=== PATIENT | female | born 1965 | race Caucasian/White ===

== ENCOUNTER 2024-03-24 09:49 | Outpatient (AMB) | payer OTHER, SELFPAY ==
--- NOTE | 2024-03-24 09:54 | MHC.PC.OV ---
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 Allergies No Known Allergies Allergy (Verified 03/24/24 09:54) Medication List - Last Reconciled 03/24/24 by Jacqueline Pereira MD anastrozole 1 mg PO DAILY cetirizine (Zyrtec) 10 mg PO DAILY PRN dextroamphetamine-amphetamine 10 mg 1 tab PO BID omeprazole 10 mg PO DAILY Tobacco use date assessed: 03/24/24 Dental Screening Dental Screen Date: 03/24/24 Did you have a dental visit in the last 12 months?: Yes Did you have a dental problem in the last 6 months where you did not have access to dental care?: No Was dental information given to patient?: Patient has dentist HPI HPI Comments History of Present Illness Details 58 year old female with a past medical history of breast cancer, osteopenia, allergies, GERD, anxiety/depression, adrenal mass presenting for follow up She has had an incredible amount of stress, anxiety recently. Her adult daughter has been having trouble with an on and off toxic relationship and with drug use. Her finances are strained by helping her out. Heme/Onc: History of breast cancer. Sees heme/onc, Dr Wyatt. Sees surgery Dr Huggins. Mammo UTD 07/2023. GI: On omeprazole 10mg daily. Needs to take daily Endocrine: Adrenal mass was being monitored Colonoscopy & EGD 2022 [facility] Surgical History (Updated 03/30/24 @ 08:54 by Jacqueline Pereira MD) History of ear surgery Hx of umbilical hernia repair History of lumpectomy of right breast Hx of appendectomy Family History (Updated 03/24/24 @ 10:01 by Naresh Beckett CMA) Mother Hypothyroid Father Dementia High blood pressure Social History (Updated 03/24/24 @ 10:02 by Naresh Beckett CMA) Housing: House Alcohol intake: current Alcohol intake frequency: a few times a week Alcohol type: beer, wine and hard liquor Patient Tobacco Use Status: Former Tobacco user Quit Date: 2019 service: No Current occupational status: employed 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 1. Little interest or pleasure in doing things: not at all 2. Feeling down, depressed, or hopeless: nearly every day 3. Trouble falling or staying asleep, or sleeping too much: nearly every day 4. Feeling tired or having little energy: more than half the days 5. Poor appetite or overeating: more than half the days 6. Feeling bad about yourself - or that you are a failure or have let yourself or your family down: nearly every day 7. Trouble concentrating on things, such as reading the newspaper or watching television: nearly every day 8. Moving or speaking so slowly that other people could have noticed. Or the opposite - being so fidgety or restless that you have been moving around a lot more than usual: several days 9. Thoughts that you would be better off or of hurting yourself in some way: several days Total score: 18 Depression Screening Interpretation: Positive Depression Screening Follow-up: New Medication prescribed and Community Mental Health Worker F/U Depression Screening Done: Yes 35069 - PHQ-9 Billing: Yes Source: Developed by Drs. Stiven Aquino, Reena Matthews, Virgil Melo and colleagues, with an educational dewayne from [employer]. Thrive Questionnaire Date Thrive assessed: 03/24/24 I am a: Patient What is your living situation today?: I have a steady place to live Within the past 12 months, did the food you bought not last and you didn't have the money to get more?: Never true Within the past 12 months, did you worry whether your food would run out before you got money to buy more?: Never true Do you have trouble paying for medicines?: No Do you have trouble getting transportation to medical appointments?: No Do you have trouble paying your heating and electricity bill?: No Do you have trouble taking care of your child, family member or friend?: Yes Do you have trouble with day-to-day activities such as bathing, preparing meals, shopping, managing finances, etc.?: No Are you interested in more education?: No Please select the resources that you would like help with: None Currently or been in a relationship where the following occur: no concerns reported THRIVE Score: 0 AUDIT C Alcohol Use Questionnaire (AUDIT-C) 1. How often do you have a drink containing alcohol?: 2-4 times a month 2. How many drinks containing alcohol do you have on a typical day when you are drinking?: 3 or 4 3. How often do you have six or more drinks on one occasion?: Never Total Score: 3 Score Reviewed/Action Taken: Yes KESHA-7 AMB Questionnaire KESHA-7 Date KESHA - 7 assessed: 03/24/24 Feeling nervous, anxious, or on edge: 3 = Nearly every day Not being able to stop or control worryin = Nearly every day Worrying too much about different things: 3 = Nearly every day Trouble relaxin = Nearly every day Being so restless that it is hard to sit still: 2 = More than half the days Becoming easily annoyed or irritable: 3 = Nearly every day Feeling afraid as if something awful might happen: 2 = More than half the days Total KESHA-7 score (0-4 normal; 5-9 mild; 10-14 moderate; 15-21 severe): 19 Source: Developed by Drs. Stiven Aquino, Reena Matthews, Virgil Melo and colleagues, with an educational dewayne from [employer]. KESHA-7 Assessment Billing KESHA-7 Assessment Tool: KESHA-7 Assessment 59512 Review of Systems Const Details: see HPI Physical exam (Primary Care) Vital Signs: Last Vital Signs Pulse 72 03/24/24 09:57 BP 128/80 03/24/24 09:57 Pulse Ox 100 03/24/24 09:57 Oxygen Delivery Method Room Air 03/24/24 09:57 PHYSICAL EXAM: GENERAL: Alert and oriented x 3. NAD EYES: EOMI. Anicteric. HENT: Moist mucous membranes. No scleral icterus. No cervical lymphadenopathy. LUNGS: Clear to auscultation bilaterally. CARDIOVASCULAR: Regular rate and rhythm. No murmur. No JVD. ABDOMEN: Soft, non-tender +bs EXTREMITIES: No edema. Non-tender. SKIN: No rashes or lesions. Warm. NEUROLOGIC: No focal neurological deficits. CN II-XII grossly intact PSYCHIATRIC: Crying at times BMI result Body Mass Index 27.8 Tobacco/Smoking Status: Tobacco use Status Tobacco use date assessed 03/24/24 03/24/24 09:55 Patient Tobacco Use Status Former Tobacco user 03/24/24 10:04 PHQ-9: PHQ-9 Score PHQ-9: Total score 18 03/27/24 16:10 Depression Screening Interpretation: Positive Depression Screening Follow-up: New Medication prescribed and Community Mental Health Worker F/U Thrive Assessment: Date of Thrive Assessment Date Thrive assessed 03/24/24 03/24/24 14:50 Currently or been in a relationship where the following occur: no concerns reported Assessment and Plan Assessment & Plan (1) Adrenal mass: Comment: continue follow up with endocrine Code(s): E27.8 - Other specified disorders of adrenal gland (2) History of lumpectomy of right breast: Comment: continue heme/onc follow up Code(s): Z98.890 - Other specified postprocedural states (3) Acute stress reaction: Comment: Start prozac. lorazepam sparing prn. referral . Code(s): F43.0 - Acute stress reaction Medications: New lorazepam 0.5 mg PO BID PRN 30 tabs 0RF anxiety 30 days fluoxetine Take 1/2 tab oral daily for 2 weeks then increase to 1 tab oral daily 20 mg PO DAILY 90 tabs 3RF 90 days betamethasone dipropionate 0.05% 1 appl topical BID PRN 45 grams 3RF skin irritation Coding Level of Care Code Tele Est Pt Level 5 (50730) Diagnoses Adrenal mass E27.8 History of lumpectomy of right breast Z98.890 Acute stress reaction F43.0 Additional Codes KESHA-7 Assessment Billing - KESHA-7 Assessment Tool: KESHA-7 Assessment 55433 ([id number]) Time Spent (min) 63
[2024-03-24 09:57] VITALS: BP 128/80; PULSE 72; O2SAT 100; BMI 27.8
== END 2024-03-24 11:03 | disposition home or self-care (01) ==
PROVIDERS: Visit Provider Internal Medicine
DX: E27.8 Other specified disorders of adrenal gland (principal); Z98.890 Other specified postprocedural states; F43.0 Acute stress reaction
CPT/HCPCS: 96127; 99215

== ENCOUNTER 2024-04-25 11:13 | Outpatient (AMB) | payer OTHER, SELFPAY ==
--- NOTE | 2024-04-25 11:21 | A.OFFPC_ITS ---
Vital Signs 04/25/24 11:32 Height 5 ft 6 in Weight 171 lb 6 oz BMI 27.7 BP 138/88 Blood Pressure Location Lt brachial Position Sitting Pulse 74 Pulse Source Pulse Oximeter Temp 98.4 F Temp Source Oral Pulse Oximetry (%) 99 Oxygen Delivery Method Room Air Intake Visit Reasons: est/ uti pain Intake Note: Lower abdominal pain, tender to touch. Pain while urinating a passing bowel. Went to [facility] in [place]. Was in severe pain, but it got better. Allergies No Known Allergies Allergy (Verified 04/25/24 11:32) Tobacco use date assessed: 03/24/24 Dental Screening Dental Screen Date: 03/24/24 HPI HPI Comments History of Present Illness Details 58 year old female with a past medical h istory of breast cancer, osteopenia, allergies, GERD, anxiety/depression, adrenal mass presenting for follow up At last visit She has had an incredible amount of stress, anxiety recently. Her adult daughter has been having trouble with an on and off toxic relationship and with drug use. Her finances are strained by helping her out . She was started on fluoxetine. This has helped her tremendously. Four days ago she developed abdominal cramping and discomfort across the lower abdomen. She was unsure if it was her bladder, but denies sundar dysuria. Denies fevers, diarrhea, blood in the stools. She was more constipated than usual She did take a laxative and have a large BM. Her symptoms are much improved but still not back to basline. She has a history of diverticulosis on colonoscopy Heme/Onc: History of breast cancer. Sees heme/onc, Dr Wyatt. Sees surgery Dr Huggins. Mammo UTD 07/2023. GI: On omeprazole 10mg daily. Needs to take daily Endocrine: Adrenal mass was being monitored Colonoscopy & EGD 2022 ROS see HPI PHYSICAL EXAM: GENERAL: Alert and oriented x 3. NAD EYES: EOMI. Anicteric. HENT: Moist mucous membranes. No scleral icterus. No cervical lymphadenopathy. LUNGS: Clear to auscultation bilaterally. CARDIOVASCULAR: Regular rate and rhythm. No murmur. No JVD. ABDOMEN: Soft, non-tender +bs EXTREMITIES: No edema. Non-tender. SKIN: No rashes or lesions. Warm. NEUROLOGIC: No focal neurological deficits. CN II-XII grossly intact PSYCHIATRIC: Cooperative. Appropriate mood and affect [facility] Surgical History (Updated 03/30/24 @ 08:54 by Jacqueline Pereira MD) History of ear surgery Hx of umbilical hernia repair History of lumpectomy of right breast Hx of appendectomy Family History (Updated 03/24/24 @ 10:01 by Naresh Beckett CMA) Mother Hypothyroid Father Dementia High blood pressure Social History (Updated 03/24/24 @ 10:02 by Naresh Beckett CMA) Housing: House Alcohol intake: current Alcohol intake frequency: a few times a week Alcohol type: beer, wine and hard liquor Patient Tobacco Use Status: Former Tobacco user service: No Current occupational status: employed 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 Stiven Aquino, Reena Matthews, Virgil Melo and colleagues, with an educational dewayne from [employer]. Physical exam (Primary Care) Vital Signs: Last Vital Signs Temp 98.4 F 04/25/24 11:32 Pulse 74 04/25/24 11:32 BP 138/88 04/25/24 11:32 Pulse Ox 99 04/25/24 11:32 Oxygen Delivery Method Room Air 04/25/24 11:32 BMI result Body Mass Index 27.7 Tobacco/Smoking Status: Tobacco use Status Tobacco use date assessed 03/24/24 04/25/24 11:22 Patient Tobacco Use Status Former Tobacco user 04/25/24 11:22 Thrive Assessment: Date of Thrive Assessment Date Thrive assessed 03/24/24 04/25/24 11:22 Assessment and Plan Assessment & Plan (1) Abdominal pain: Comment: urinalysis normal. sent for culture Upcoming vacation. Will empirically treat for diverticulitis. If symptoms persist or worsen she will return or seek medical care in [place] Code(s): R10.9 - Unspecified abdominal pain Qualifiers: Abdominal location: lower abdomen, unspecified Qualified Code(s): R10.30 - Lower abdominal pain, unspecified (2) Acute stress reaction: Comment: Doing well on fluoxetine. continue current dosing Code(s): F43.0 - Acute stress reaction Orders: Orders Urine Culture 04/25/24 R10.9 - Unspecified abdominal pain Medications: New amoxicillin-pot clavulanate 875-125 mg 1 tab PO BID 20 tabs 0RF 10 days fluconazole may repeat second dose 72 hrs after first dose if symptoms persist 150 mg PO Q3D 2 tabs 0RF 2 doses Coding Level of Care Code Est Pt Level 4 (29736) Complex EM visit Add On G2211 Diagnoses Lower abdominal pain R10.30 Abdominal location: lower abdomen, unspecified Acute stress reaction F43.0
[2024-04-25 11:32] VITALS: BP 138/88; PULSE 74; TEMP 36.9; O2SAT 99; BMI 27.7
== END 2024-04-25 15:12 | disposition home or self-care (01) ==
PROVIDERS: Visit Provider Internal Medicine
DX: R10.30 Lower abdominal pain, unspecified (principal); F43.0 Acute stress reaction
CPT/HCPCS: 99214; G2211

== ENCOUNTER 2024-09-30 14:47 | Outpatient (AMB) | payer OTHER, SELFPAY ==
--- NOTE | 2024-09-30 15:05 | A.OFFPC_ITS ---
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 She has had an incredible amount of stress, anxiety recently. Her adult daughter has been having trouble with an on and off toxic relationship and with drug use. Her finances are strained by hel ping her out . She has intermittent symptoms abdominal cramping and discomfort across the lower abdomen. Denies fevers, blood in the stools. She does have bouts of diarrhea. Often resolves symptoms. Increased with stress. She has a history of diverticulosis on colonoscopy Has been having persistent swelling pain and warmth of the distal right middle finger. She has an ortho appointment scheduled for Oct 14. Heme/Onc: History of breast cancer. Sees heme/onc, Dr Wyatt. Recently saw Dr Wyatt, sees Dr Huggins in October. GI: On omeprazole 10mg daily. Needs to take daily. Endocrine: Adrenal mass was being monitored Colonoscopy & EGD 2022 Breast cancer screening is UTD Got flu and COVID vaccine this fall at the pharmacy ROS see HPI PHYSICAL EXAM: GENERAL: Alert and oriented x 3. NAD EYES: EOMI. Anicteric. HENT: Moist mucous membranes. No scleral icterus. No cervical lymphadenopathy. LUNGS: Clear to auscultation bilaterally. CARDIOVASCULAR: Regular rate and rhythm. No murmur. No JVD. ABDOMEN: Soft, non-tender +bs EXTREMITIES: No edema. Non-tender. SKIN: No rashes or lesions. Warm. NEUROLOGIC: No focal neurological deficits. CN II-XII grossly intact PSYCHIATRIC: Cooperative. 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 1. Little interest or pleasure in doing things: more than half the days 2. Feeling down, depressed, or hopeless: nearly every day 3. Trouble falling or staying asleep, or sleeping too much: several days 4. Feeling tired or having little energy: nearly every day 5. Poor appetite or overeating: nearly every day 6. Feeling bad about yourself - or that you are a failure or have let yourself or your family down: several days 7. Trouble concentrating on things, such as reading the newspaper or watching television: nearly every day 8. Moving or speaking so slowly that other people could have noticed. Or the opposite - being so fidgety or restless that you have been moving around a lot more than usual: several days 9. Thoughts that you would be better off or of hurting yourself in some way: not at all Total score: 17 Depression Screening Interpretation: Positive Depression Screening Follow-up: Existing condition Depression Screening Done: Yes 63299 - PHQ-9 Billing: Yes Source: Developed by Drs. Stiven Aquino, Reena Matthews, Virgil Melo and colleagues, with an educational dewayne from [employer]. Thrive Questionnaire Date Thrive assessed: 09/07/24 I am a: Patient What is your living situation today?: I have a steady place to live Within the past 12 months, did the food you bought not last and you didn't have the money to get more?: Never true Within the past 12 months, did you worry whether your food would run out before you got money to buy more?: Never true Do you have trouble paying for medicines?: No Do you have trouble getting transportation to medical appointments?: No Do you have trouble paying your heating and electricity bill?: No Do you have trouble taking care of your child, family member or friend?: Yes Do you have trouble with day-to-day activities such as bathing, preparing meals, shopping, managing finances, etc.?: No Are you currently unemployed and looking for a job?: No Are you interested in more education?: No Please select the resources that you would like help with: Care for elder or disabled Currently or been in a relationship where the following occur: No concerns reported THRIVE Score: 0 KESHA-7 AMB Questionnaire KESHA-7 Date KESHA - 7 assessed: 03/24/24 Source: Developed by Drs. Stiven Aquino, Reena Matthews, Virgil Melo and colleagues, with an educational dewayne from [employer]. Physical exam (Primary Care) Vital Signs: Last Vital Signs Pulse 83 09/30/24 15:11 BP 134/88 09/30/24 15:11 Pulse Ox 98 09/30/24 15:11 Oxygen Delivery Method Room Air 09/30/24 15:11 BMI result Body Mass Index 29.4 Tobacco/Smoking Status: Tobacco use Status Tobacco use date assessed 03/24/24 09/30/24 15:05 Patient Tobacco Use Status Former Tobacco user 09/30/24 15:05 PHQ-9: PHQ-9 Score PHQ-9: Total score 17 10/01/24 08:37 Depression Screening Interpretation: Positive Depression Screening Follow-up: Existing condition Thrive Assessment: Date of Thrive Assessment Date Thrive assessed 09/07/24 09/30/24 15:05 Currently or been in a relationship where the following occur: No concerns rep orted Coding Level of Care Code Est Pt Prev Care 40-64y(16669) Diagnoses Physical exam Z00.00 Additional Codes PHQ-9 - 93492 - PHQ-9 Billing: Yes ([id number]) Assessment & Plan Assessment & Plan (1) Physical exam: Code(s): Z00.00 - Encounter for general adult medical examination without abnormal findings Category: Medical Plan: Preventive measures for age discussed. She is up to date She needs to schedule follow up for adrenal mass. Augmentin if finger or abdominal pain worsens. Trial levsin with increase in abdominal cramping Orders: Orders TSH reflex Free T4 09/30/24 E27.8 - Other specified disorders of adrenal gland, R10.30 - Lower abdominal pain, unspecified, Z00.00 - Encounter for general adult medical examination without abnormal findings, Z98.890 - Other specified postprocedural states Complete Blood Count Auto Diff 09/30/24 E27.8 - Other specified disorders of adrenal gland, R10.30 - Lower abdominal pain, unspecified, Z00.00 - Encounter for general adult medical examination without abnormal findings, Z98.890 - Other specified postprocedural states Lipid Panel 09/30/24 E27.8 - Other specified disorders of adrenal gland, R10.30 - Lower abdominal pain, unspecified, Z00.00 - Encounter for general adult medical examination without abnormal findings, Z98.890 - Other specified postprocedural states Comprehensive Met. Panel 09/30/24 E27.8 - Other specified disorders of adrenal gland, R10.30 - Lower abdominal pain, unspecified, Z00.00 - Encounter for general adult medical examination without abnormal findings, Z98.890 - Other specified postprocedural states Hemoglobin A1c 09/30/24 E27.8 - Other specified disorders of adrenal gland, R10.30 - Lower abdominal pain, unspecified, Z00.00 - Encounter for general adult medical examination without abnormal findings, Z98.890 - Other specified postprocedural states Medications: New amoxicillin-pot clavulanate 875-125 mg 1 tab PO BID 20 tabs 0RF hyoscyamine sulfate 0.125 mg PO BID-QID PRN 30 tabs 3RF dyspepsia Refilled lorazepam 0.5 mg PO BID PRN 30 tabs 0RF anxiety 30 days dextroamphetamine-amphetamine 10 mg 1 tab PO BID 60 tabs 0RF
[2024-09-30 15:11] VITALS: BP 134/88; PULSE 83; O2SAT 98; BMI 29.4
== END 2024-09-30 15:56 | disposition home or self-care (01) ==
PROVIDERS: Visit Provider Internal Medicine
DX: Z00.00 Encounter for general adult medical examination without abnormal findings (principal)

== ENCOUNTER → 2024-09-30 14:47 | Outpatient (BNVA) | payer OTHER, SELFPAY | PROVIDERS: Visit Provider Internal Medicine | DX: Z00.00 Encounter for general adult medical examination without abnormal findings (principal); F41.9 Anxiety disorder, unspecified; E27.8 Other specified disorders of adrenal gland; K21.9 Gastro-esophageal reflux disease without esophagitis; Z79.899 Other long term (current) drug therapy | CPT/HCPCS: 96127 ==

== ENCOUNTER 2024-10-13 15:31 | Outpatient (AMB) | payer OTHER, SELFPAY ==
--- NOTE | 2024-10-13 15:34 | MHC.OFFVIS ---
Vital Signs 10/13/24 15:37 Height 5 ft 6 in Weight 182 lb BMI 29.4 Handedness Right Intake Visit Reasons: [employer]-Cellulitis of right middle finger Intake Note: Hetal is a 59 year old right hand dominant female who presents today as new patient for her cellulitis of right middle finger. Patient reports she has pain in the right 3rd digit with palpitation or any pressure applies. Expresses even a bandage on the finger is painful. She states what she believes is tissue that grows out from the side and under the nail bed and then dries up and falls off. Her assumption is a hang nail. Her finger appears swollen at today's visit. She has randomly woken up at night from sharp in in the right middle finger. Denies recent injury. Allergies lidocaine Allergy (Intermediate, Verified 10/13/24 15:38) Itching HPI HPI [employer]-Cellulitis of right middle finger: Details: Patient is a 59-year-old female presents for evaluation of chronic cellulitis and edema of the right middle finger, ongoing for approximately 3 months. 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 The patient states that this condition is very painful, and even light touch to this area causes significant discomfort. The patient states that the edema and erythema of the area surrounding the nail of the right middle finger has gone down significantly over the last week or 2, but states that it does fluctuate. Patient denies ever having any drainage from this area, and despite warm water soaks. Patient also reports that it there has never been any area of purulence noted visually. Patient has been given antibiotics periodically for this, with minimal effect. Denies any numbness or tingling in the right hand. No other acute complaints or concerns at this time. 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 Neuro: Normal sensation of the tips of all digits of the right hand at this time Vascular: Cap refill brisk Pain: significant tenderness to palpation about the ulnar aspect of the dorsal distal phalanx of the right middle finger, just adjacent to the fingernail No tenderness to palpation of the volar aspect of the right middle finger No other tenderness to palpation noted ROM: Patient is able to make a closed fist and extend all digits of the right hand fully Skin: No lacerations or abrasions. There is noted to be mild edema and erythema about the fingernail of the right middle finger, with a small area of thickened skin noted under the fingernail No focal area of purulence noted No fluctuance noted Psych: Appears grossly normal Affect normal Attitude cooperative Assessment & Plan Assessment & Plan (1) Chronic paronychia of finger of right hand: Code(s): L03.011 - Cellulitis of right finger Category: Medical Plan 1. Chronic paronychia of right middle finger Ongoing for approximately 3 months Patient is educated about this condition Patient is educated about the typical recovery course At this time, patient was placed on a course of Augmentin, which she states she has not been given for this previously, to see if this helps to alleviate her symptoms At this time, patient is also referred to Dr. Guardado for assessment of chronic paronychia versus potential ingrown fingernail of right middle finger Patient was amenable to this plan Patient will follow-up in [address] Guardado for reassessment, sooner with any acute concerns Medications: New amoxicillin-pot clavulanate 875-125 mg 1 tab PO BID 20 tabs 0RF 10 days Coding Level of Care Code New Pt Level 3 (32469) Diagnoses Chronic paronychia of finger of right hand L03.011
[2024-10-13 15:37] VITALS: BMI 29.4
== END 2024-10-13 15:50 | disposition home or self-care (01) ==
LOC: HO.HOS 15:31
DX: L03.011 Cellulitis of right finger (principal)
CPT/HCPCS: 99203

== ENCOUNTER 2024-10-21 15:29 | Outpatient (REF) | payer OTHER, SELFPAY | END 2024-10-21 15:30 | disposition home or self-care (01) | LOC: HO.HOSX 15:29 | PROVIDERS: Visit Provider Orthopaedic Surgery | DX: M79.641 Pain in right hand (principal) | CPT/HCPCS: 73130 ==

== ENCOUNTER → 2024-10-21 15:29 | Outpatient (AMB) | payer OTHER, SELFPAY ==
--- NOTE | 2024-10-21 15:50 | MHC.OFFVIS ---
Vital Signs 10/21/24 16:15 Height 5 ft 6 in Weight 182 lb BMI 29.4 Intake Visit Reasons: Cellulitis of right middle finger-1 WK follow up Intake Note: Hetal 59 yr old right hand dominant female, presents today for a follow up visit for her right middle finger. Patient states she has been taking her antibiotics, second round, no visible discharge. Denies numbness or tingling. Last seen with Shy Emerson who advise for patient to be seen with Dr. Guardado for an assessment of chronic paronychia versus potential ingrown fingernail of right middle finger. Allergies lidocaine Allergy (Intermediate, Verified 10/21/24 15:56) Itching HPI HPI Cellulitis of right middle finger-1 WK follow up: Details: Hetal is a 59 year old right hand dominant woman who presents for a possible right middle finger infection. 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 She reports having pain & a possible infection vs an ingrown fingernail to her right middle finger for several months now, she is unsure of the exact time but suspects it was sometime in Spring this year. She complains of pain & hypersensitivity to the the middle finger, particularly the ulnar half. She says she is unable to wear bandages as she finds this too painful. She has found little to no relief from warm water soaks or previous Abx. She denies there ever being any drainage. 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 Cognitive needs: No Hearing needs: No Vision needs: Yes Review of Systems Const All systems reviewed & are unremarkable except as noted in HPI and below Physical Exam Const General: cooperative, healthy appearing and no acute distress Orientation/consciousness: patient oriented x3 HEENT Head: Yes normocephalic and Yes atraumatic Eyes EOM: EOMs intact bilaterally Resp Effort & Inspection: normal respiratory effort and able to speak in complete sentences Cardio Jugular venous distension: no JVD Skin General skin exam: turgor normal Rashes: no rashes Neuro General: patient oriented x3 Extrem Other: Evaluation of Right Upper Extremity: The patient is alert, oriented, and in no acute distress Neuro: Median, Ulnar, Radial nerves motor and sensory intact and sensation is normal to the tips of all digits Vascular: Cap refill brisk ROM: She can make a fist and extend all her digits Skin: No lacerations or abrasions. General: The distal end of the middle finger is enlarged compared to her left hand middle finger TTP about the radial aspect of the right middle finger, just adjacent to the fingernail. There are 2 small painful projections, much like a hang nail, or small remnant of a nail that is split off from the main aspect of the nail. This is her most painful area. She is also painful in an area about a cm diameter around the painful projection. No erythema or warmth. No drainage and no history of drainage No tenderness to palpation of the ulnar aspect of the right middle finger She can make a fist and extend all of her digits without difficulty. Of note she has a history of a trigger release at some point. In this digit with no history of complications. Radiographs: 3 views of the right hand, with attention to the middle finger, were taken and viewed by me today in clinic. On the radial aspect of the distal phalanx there does appear to be soft tissue involvement appearing to push into the bone both radially and volarly with bony edges both proximal and distal to the area. It is unclear whether this could be due to a soft tissue mass, or perhaps a chronic slow growing osteomyelitis. Psych Appearance: grossly normal Affect: normal affect Attitude: cooperative Assessment & Plan Assessment & Plan (1) Chronic paronychia of finger of right hand: Comment: Jeff Code(s): L03.011 - Cellulitis of right finger Category: Medical Plan Assessment & Plan: 1. Right middle finger distal phalanx possible chronic paronychia involving bone, versus soft tissue mass. Radial side 2. Radial finger nail involvement, again possible chronic paronychia I educated her about this condition I discussed operative and non-operative treatment options I believe operative treatment would be best, and the patient would like to proceed with surgery The risks and benefits of operative treatment were discussed with the patient and the patient wishes to proceed with surgery. These risks include, but are not limited to risk of damage to blood vessels, nerves, tendons, infection, recurrence, incomplete relief of preoperative symptoms, persistent pain, possible need for further surgery and the risks associated with regional blocks and anesthesia. The plan is to take the patient to the operating room sometime in the next few weeks for the following procedures: 1. Right middle finger partial excision of nailplate, nailbed, and germinal nail matrix, under local (patient requested) 2. Right middle finger biopsy & I&D of bone & chronic paronychia, under local (patient requested) All of the preoperative paperwork including the consent was reviewed today. All the patient's questions were answered. The patient understands that they will be contacted by our inspector subassembly soon to schedule this procedure She denies Diabetes, blood thinners, asthma, heart, lung, kidney issues Her primary care provider ordered a hemoglobin A1c. We will check this prior to surgery. Please note that greater than 50 minutes was spent with this patient going over the history, evaluating the patient and radiographs, formulating possible treatment options, discussing them with the patient, and documenting the visit. Scribed for Cris Guardado MD by Gomez Smith, emergency medical dispatcher, on 10/21/24 at 4:10 PM, EST. 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
[2024-10-21 16:15] VITALS: BMI 29.4
== END ==
PROVIDERS: Visit Provider Orthopaedic Surgery
DX: L03.011 Cellulitis of right finger (principal)
CPT/HCPCS: 99204

== ENCOUNTER 2024-11-03 11:00 | Outpatient (REF) | payer OTHER, SELFPAY ==
--- OUTSIDE RECORDS SUMMARY | 2024-11-03 11:06 | XMS_ITS | Data Portability ---
Author Organization [place] - [facility], [facility] Address [id number] [place] [address] Care Team Providers Care Pian[employer] Salesperson Name Role Phone SIRIA CHINO Primary Care Provider [phone] SIRIA CHINO Referring Provider [phone] NIRMAL CARLSON Machine Sign Writer Unavailable SIRIA CHINO Primary Care Provider Assessment No assessment recorded. Plan of Treatment Reminders Order Date Submit Date Provider Last Modified By Organization Details Last Modified Time Details Appointments None recorded. Lab urinalysis , dipstick 2015 016 In-Office Order, Internal Use Only DO Not Attach Compendium DO Not Attach Compendium, Do Not Delete/merge, [id number] 6 21:28:21 fecal occult blood, stool 2015 016 In-Office Order, Internal Use Only DO Not Attach Compendium DO Not Attach Compendium, Do Not Delete/merge, [id number] 6 21:28:22 pap, IG + CT/NG + HR HPV + reflex HPV (16+18) 2016 017 Formerly [facility], [address], [place], [address] 7 08:35:34 urinalysis , dipstick 2016 017 In-Office Order, Internal Use Only DO Not Attach Compendium DO Not Attach Compendium, Do Not Delete/merge, [id number] 7 17:01:45 fecal occult blood, stool 2016 017 In-Office Order, Internal Use Only DO Not Attach Compendium DO Not Attach Compendium, Do Not Delete/merge, [id number] 7 17:01:45 test, urine 2016 017 In-Office Order, Internal Use Only DO Not Attach Compendium DO Not Attach Compendium, Do Not Delete/merge, [id number] 7 14:21:03 surgical pathology study - ascus, HPV+. ECC done 2016 017 Formerly [facility], [address] [place] [address], [id number] 7 15:35:52 surgical pathology study 2016 017 [email or web address] [facility], [address] [place] [address], [id number] 7 10:49:00 surgical pathology study - ascus, HPV+ pap. [address] [facility], [address] [place] [address], [id number] 7 10:49:00 Referral None recorded. Procedures None recorded. Surgeries None recorded. Imaging MAMMO, screening, digital, bilateral - Please Reflex to breast ultrasound if mammogram shows dense breasts [address] [facility], [address] [place], [address], 6 11:35:16 ultrasound , breast - left diagnostic u/s follow up. 2015 016 [email or web address] [facility], [address] [place], [address], 6 08:04:45 MAMMO, screening, digital, bilateral, w/ CAD 2016 017 [facility] [place], [address], [address], [place], [address], 7 08:35:54 US, breast, bilateral 2016 017 IRINA [facility] [place], [address], [address], [place], [address], 7 09:04:09 Medication Orders Minastrin 24 Fe 1 mg-20 mcg (24)/75 mg (4) chewable tablet 2015 016 Not available 7 13:39:13 Minastrin 24 Fe 1 mg-20 mcg (24)/75 mg (4) chewable tablet 2015 016 Not available 13:39:13 Patient TargetsNo targets recorded. Patient Instructions Encounter Date Encounter Id Patient Instructions Last Modified By Organization Details Last Modified Time 12/21/2015 [id number] Patient presents for a well woman exam. Her history is unremarkable and her exam is normal. She has been counseled regarding Pap smear screening as per guidelines of every three years for cytology review with high risk HPV testing. I have recommended an annual Digital Bilateral Mammogram and an order sheet has been given to her.. I have counseled her about the benefit of performing monthly self-breast exams. We spoke about the recommendation of ??daily dietary ??Calcium supplementation and 2000iu of Vitamin D daily. She has been told to schedule a well woman [employer] exam in one year and to call us with any question or concerns regarding her health and welfare. Heme + stool. recommend colonoscopy. ??A heart healthy diet and exercise were recommended.?? Not available 12/22/2015 21:28:22 01/04/2017 [id number] Patient presents for a well woman exam. Her history is unremarkable and her exam is normal. She has been counseled regarding Pap smear screening as per guidelines of every three years for cytology review with high risk HPV testing. She had a h.o abnl pap in 2009, repeat pap and HPV and cultures done. safe sex recommended. I have recommended an annual Digital Bilateral Mammogram and an order sheet has been given to her. She has been counseled regarding menopausal symptoms including hot flushes, vaginal dryness, mood changes, and difficulty sleeping. She has been offered an appointment to speak to me specifically about these symptoms and some strategies to ease them if and when they occur. She will continue ocp x 1 more year and then come off. risk of VTE reviewed. consent obtained. I have counseled her about the benefit of performing monthly self-breast exams. We spoke about the recommendation of dietary calcium and Vit D3, 2000IU daily. . She has been told to schedule a well woman [employer] exam in one year and to call us with any question or concerns regarding her health and welfare. Not available 01/05/2017 09:52:38 01/24/2017 [id number] abnormal Pap saeed t: care instructions [email or web address] Not available 01/24/2017 14:27:55 ASCUS, HPV+ for annual pap. h/o dysplasia years ago and had cryo. New partner since divorce. colpo done today. suspect inflammation vs. HPV ? CIN1 on biopsy. cervical polyp removed at the same time as colpo. pt tolerated procedure well. f/u with results. Discussed possible outcome and follow up . Not available 01/24/2017 21:41:10 Reason for Referral None Reported. Results Created Date Observation Date Name Description Value Unit Range Abnormal Flag Note LastModifiedBy Organization Detail LastModifiedTime 01/24/2017 pregn magdalene test, urine Result negati ve Not Available In-Office Order Internal Use Only DO Not Attach Compendium DO Not Attach Compendium, Do Not Delete/merge, [id number] 01/24/2017 13:31:37 01/04/2017 fecal occul t blood , stool Occult Blood negati ve Not Available In-Office Order Internal Use Only DO Not Attach Compendium DO Not Attach Compendium, Do Not Delete/merge, [id number] 01/04/2017 17:01:21 01/04/2017 urina lysis , dipst ick Interpretati on negati ve Not Available In-Office Order Internal Use Only DO Not Attach Compendium DO Not Attach Compendium, Do Not Delete/merge, [id number] 01/04/2017 16:18:34 01/04/2017 urina lysis , dipst ick Leukocytes Negati ve Not Available In-Office Order Internal Use Only DO Not Attach Compendium DO Not Attach Compendium, Do Not Delete/merge, [id number] 01/04/2017 16:18:34 01/04/2017 urina lysis , dipst ick Nitrite negati ve Not Available In-Office Order Internal Use Only DO Not Attach Compendium DO Not Attach Compendium, Do Not Delete/merge, 01/04/2017 16:18:34 01/04/2017 urina lysis , dipst ick Urobilinogen Normal : 0.2 mg/dl Not Available In-Office Order Internal Use Only DO Not Attach Compendium DO Not Attach Compendium, Do Not Delete/merge, 01/04/2017 16:18:34 01/04/2017 urina lysis , dipst ick Protein Negati ve Not Available In-Office Order Internal Use Only DO Not Attach Compendium DO Not Attach Compendium, Do Not Delete/merge, 01/04/2017 16:18:34 01/04/2017 urina lysis , dipst ick pH 6.0 Not Available In-Office Order Internal Use Only DO Not Attach Compendium DO Not Attach Compendium, Do Not Delete/merge, 01/04/2017 16:18:34 01/04/2017 urina lysis , dipst ick Blood Negati ve Not Available In-Office Order Internal Use Only DO Not Attach Compendium DO Not Attach Compendium, Do Not Delete/merge, 01/04/2017 16:18:34 01/04/2017 urina lysis , dipst ick Specific [place] 1.010 Not Available In-Off ice Order Internal Use Only DO Not Attach Compendium DO Not Attach Compendium, Do Not Delete/merge, 01/04/2017 16:18:34 01/04/2017 urina lysis , dipst ick Ketone Negati ve Not Available In-Office Order Internal Use Only DO Not Attach Compendium DO Not Attach Compendium, Do Not Delete/merge, 01/04/2017 16:18:34 01/04/2017 urina lysis , dipst ick Bilirubin Negati ve Not Available In-Office Order Internal Use Only DO Not Attach Compendium DO Not Attach Compendium, Do Not Delete/merge, 01/04/2017 16:18:34 01/04/2017 urina lysis , dipst ick Glucose Negati ve Not Available In-Office Order Internal Use Only DO Not Attach Compendium DO Not Attach Compendium, Do Not Delete/merge, 01/04/2017 16:18:34 01/04/2017 urina lysis , dipst ick Appearance Clear Not Available In-Offi ce Order Internal Use Only DO Not Attach Compendium DO Not Attach Compendium, Do Not Delete/merge, 01/04/2017 16:18:34 01/04/2017 urina lysis , dipst ick Color Yellow Not Available In-Office Order Internal Use Only DO Not Attach Compendium DO Not Attach Compendium, Do Not Delete/merge, 01/04/2017 16:18:34 12/21/2015 fecal occul t blood , stool Occult Blood positi ve Not Available In-Office Order Internal Use Only DO Not Attach Compendium DO Not Attach Compendium, Do Not Delete/merge, 12/21/2015 17:13:56 12/21/2015 urina lysis , dipst ick Leukocytes Negati ve Not Available In-Office Order Internal Use Only DO Not Attach Compendium DO Not Attach Compendium, Do Not Delete/merge, 12/21/2015 10:52:46 12/21/2015 urina lysis , dipst ick Nitrite negati ve Not Available In-Office Order Internal Use Only DO Not Attach Compendium DO Not Attach Compendium, Do Not Delete/merge, 12/21/2015 10:52:46 12/21/2015 urina lysis , dipst ick Protein Negati ve Not Available In-Office Order Internal Use Only DO Not Attach Compendium DO Not Attach Compendium, Do Not Delete/merge, 12/21/2015 10:52:46 12/21/2015 urina lysis , dipst ick Blood Negati ve Not Available In-Office Order Internal Use Only DO Not Attach Compendium DO Not Attach Compendium, Do Not Delete/merge, 12/21/2015 10:52:46 12/21/2015 urina lysis , dipst ick Glucose Negati ve Not Available In-Office Order Internal Use Only DO Not Attach Compendium DO Not Attach Compendium, Do Not Delete/merge, 12/21/2015 10:52:46 12/21/2015 urina lysis , dipst ick Appearance Clear Not Available In-Offi ce Order Internal Use Only DO Not Attach Compendium DO Not Attach Compendium, Do Not Delete/merge, [id number] 12/21/2015 10:52:46 12/21/2015 urina lysis , dipst ick Color Yellow Not Available In-Office Order Internal Use Only DO Not Attach Compendium DO Not Attach Compendium, Do Not Delete/merge, [id number] 12/21/2015 10:52:46 01/05/20 17 01/11/2017 pap, IG + CT/NG + HR HPV + refle x HPV (16+1 8) report abnormal THINP REP TIS PAP, HPV mRNA E6/E7 RFX HPV 16,18 /45, CHLAM YDIA/ N.SIS ORRHO EAE Lab: TY3 CLINI FELIBERTO INFOR MATIO N: None given LMP: NI prev. Pap: NONE GIVEN prev. Bx: NI SOURC E: Cervi x, Endoc ervix STATE MENT OF ADEQU ACY: Satis facto ry for evalu ation . Endoc ervic al/tr ansfo rmati on zone compo nent prese nt. Age and/o r menst rual statu s not provi ded GENER AL CATEG ORIZA TION: EPITH ELIAL CELL ABNOR MALIT Y INTER PRETA TION/ RESUL T: Atypi feliberto Squam ous Cells of Undet ermin ed Signi fican ce (ASC- US) COMME NT: This Pap test has been evalu ated with compu ter ammy aldo techn ology . CYTOT ECHNO LOGIS T: KF, CT( CP) CT scree jessi locat ion: [facility] [address] [facility], [place] [id number] PATHO LOGIS T: Seymour ruiz M.D., (elec troni c signa ture) [facility] For quest ions conta ct [facility] t Servi rody at [phone] Lab: NL1 HPV mRNA E6/E7 REFLE X HPV 16, 18/45 HPV mRNA E6/E7 Detec aldo Refer ence Range : Not Detec aldo This test was perfo rmed using the APTIM A HPV Assay ([employer] . This assay detec ts E6/E7 viral messe nger RNA (mRNA ) from 14 high- risk HPV types (16,1 8,31, 33,35 ,39,4 5,51, 52,56 ,58,5 9,66, 68). THINP REP TIS PAP, HPV mRNA E6/E7 RFX HPV 16,18 /45, CHLAM YDIA/ N.SIS ORRHO EAE PERFO RMING SITE: NL1 [facility] [address] ,[place] [address] Labor atory Direc tor: RAAD BOB MD , CLIA: [id number] TY3 [facility] [address] [facility] [place] [address] Labor atory Direc tor: CIPRIANO DIAZ MD, CLIA: [id number] Not Available [facility] [address] [place], [address] 01/11/2017 08:35:34 01/05/20 17 01/11/2017 pap, IG + CT/NG + HR HPV + refle x HPV (16+1 8) neisseria gonorrhoeae RNA,tma NOT DETECT ED not detect ed Not Available [facility] [address] [place], [address] 01/11/2017 08:35:34 01/05/20 17 01/11/2017 pap, IG + CT/NG + HR HPV + refle x HPV (16+1 8) chlamydia trachomatis RNA, tma NOT DETECT ED not detect ed Not Available [facility] [address] [place], [address] 01/11/2017 08:35:34 01/05/20 17 01/11/2017 pap, IG + CT/NG + HR HPV + refle x HPV (16+1 8) message This test was perfo rmed using the APTIM A COMBO 2 Assay ([employer] . The faviola tical perfo rmanc e jeanette cteri stics of this assay , when used to test SureP ath speci mens have been deter mined by [facility] keesha ramirez Not Available [facility] [address], [place], [address] 01/11/2017 08:35:34 01/25/20 17 01/25/2017 surgi feliberto patho logy study report Surgi feliberto Patho logy Repor t DIAGN OSIS #1 - ENDOC ERVIC AL CURET TINGS : BENIG N ENDOC ERVIC AL GLAND S; NO DYSPL KARTHIK PRESE NT. #2 - UTERI NE CERVI X, POLYP ECTOM Y: BENIG N ENDOC ERVIC AL POLYP . #3 - UTERI NE CERVI X, BIOPS Y: BENIG N ENDOC ERVIC AL GLAND ULAR AND SQUAM OUS METAP LASTI C MUCOS A, NEGAT WESLEY FOR DYSPL KARTHIK. SEE COMME NT. El ectro nical ly Dalila d Out * MICHA SANTANA MD Comme nt Note is made of the histo ry of high risk HPV DNA which warra nts [place] nued [place]. [id number] x 3 Clini feliberto Diagn osis and Histo ry ASCUS , HPV+ pap ICD Code( s) R87.6 10 Atyp squam cell of undet signf c cyto smr crvx (ASC- US) Tissu e(s) Submi tted A: Endoc ervix , curet tage- jar label ed #1 B: Cervi x, polyp ectom y-jar label ed #2 polpy C: Cervi x, biops y-jar label ed #3 bx Gross Descr iptio n #1 - The conta iner is label ed with the patie nt's name, Hetal Mora . Speci men type indic ated on requi sitio n as ECC. The speci men is recei jayla in forma alessia and consi sts of irreg ular tissu e fragm ents admix ed with mucus and blood measu ring less than .1 cc, which are then filte red and submi tted in toto in oneca ssett e label ed 1A. The speci men may not survi ve proce ssing . #2 - The conta iner is label ed with the patie nt's name, Hetal Mora . Speci men type indic ated on conta iner as polyp . The speci men is recei jayla in forma alessia and consi sts of one piece of a soft, nuñez tissu e measu ring 0.7 x 0.6 x0.2 cm, which is then submi tted in toto in one casse tte label ed 2A. Also noted in conta iner were irreg ular tissu e fragm ents admix ed with mucus and blood measu ring , hemor rhagi c mucos al tissu e fragm ents measu ring about .2 cc inagg regat e, which is then submi tted in toto in one casse tte label ed 2A. #3 - The conta iner is label ed with the patie nt's name, Hetal Mora . Speci men type indic ated on conta iner as BX. The speci men is recei jayla in forma alessia and consi sts of two piece s of soft, nuñez tissu e measu ring from small est,0 .2 x 0.2 x 0.[address], 0.4 x 0.2 x .05 cm, which is then submi tted intot o in one casse tte label ed 3A. DC Testi ng perfo rmed at [facility] , [address] [place] [address] CLIA [id number] CL-PO [id number]. Not Available [facility] [address] [place], [address] 01/25/2017 15:35:52 06/13/20 16 06/13/2016 MAMMO , lakshmi bowen, digit al, bilat eral HISTOR Y: Vega fine is 50 years old and is seen for screen ing. The vega fine has a histor y of left stereo tactic core biopsy in 2007. The vega fine has no person al histor y of breast or ovaria n cancer . The vega fine has no family histor y of breast cancer . FILMS COMPAR ED: The presen t examin ation has been compar ed to prior imagin g studie s perfor med at [facility] on 2010, 2012 and 2014. MAMMOG KENNY FINDIN GS: The follow ing digita l mammog raphic views were obtain ed: bilate ral cranio caudal , bilate ral mediol ateral obliqu e. The breast s are hetero geneou sly dense, which may obscur e small masses . (ACR BIRADS densit y Catego ry c) * There is a stable focal asymme try with associ ated biopsy clip seen in the left breast at 9 oclock . No suspic ious masses , calcif icatio ns or other abnorm alitie s are seen in either breast . Comput er-aid ed detect ion was utiliz ed by the radiol ogist in the interp retati on of this examin ation. IMPRES MARK: Stable focal asymme try in the left breast is benign . Routin e follow -up mammog kenny in 1 year is recomm ended. The patien t will receiv e a lay summar y of the result s of this breast imagin g exam. Lay summar ies for mammog stephanie examin ations will also identi fy the patien ts person al breast tissue compos ition as requir ed by state law. BIRADS Catego ry 2: Benign *BREAS T COMPOS ITION Breast compos ition descri ptions are based on the standa rd practi ce guidel jaye of the ACR BI-RAD S [place]. A refere nce guide is provid ed below. BREAST COMPOS ITION CATEGO LIO - BIRADS VERSIO N V a. The breast s are almost entire ly fatty. b. There are scatte red areas of fibrog landul ar densit y. c. The breast s are hetero geneou sly dense, which may obscur e small masses . d. The breast s are extrem jim dense, which lowers the sensit ivity of mammog stephanie. Patien ts in catego lio c. and d. may qualif y for supple mental screen ing exams. Thank you for referr ing your patien t to us, uJstin MD (Elect jaya elajessica Signed - 2015 11:33) Copy: ISAIAS Sanders MD [facility] [address] [place] [address] [phone] [facility] [place] [address], [place], [address], 06/18/2016 09:47:55 08/08/20 16 06/13/2016 ultra sound , therese fine No observ ation record ed. [facility] [address], [place], [address], 08/08/2016 17:48:50 01/10/20 17 01/08/2017 US, therese fine, francia erakarmen HISTOR Y: Vega fine is 51 years old and is seen for screen ing. The evga fine has a histor y of left stereo tactic core biopsy in 2007. The vega fine has no person al histor y of breast or ovaria n cancer . The vega fine has no family histor y of breast cancer . LAST TISSUE DENSIT Y The breast is hetero geneou sly dense, which may obscur e small masses . (ACR BIRADS densit y Catego ry c) * FILMS COMPAR ED: The presen t examin ation has been compar ed to prior imagin g studie s dated 2015, 2014, 2012 and 2009. ULTRAS OUND FINDIN GS: High-r es graysc riddhi sonogr aphy was perfor med with a high freque ncy linear transd ucer using standa rd protoc ol. All four quadra nts of the breast (s) includ ing areola and axilla ry areas were imaged . Findin g 1: Follow -up examin ation was perfor med for the cluste r of cysts in the left breast , 2 oclock seen on 2014. On the presen t examin ation, there is a stable cluste r of cysts measur ing 12 millim eters in the left breast upper outer quadra nt at 2 oclock locate d 4 centim eters from the nipple . Findin g remain s unchan ged from the prior study. Findin g 2: There is an avascu lar compli cated cyst measur ing 6 x 5 x 5 mm seen in the left breast at 3 oclock locate d 5 centim eters from the nipple . Findin g 3: Follow -up examin ation was perfor med for the cluste r of cysts in the left breast , 8 oclock seen on 2015. On the presen t examin ation, there is a stable avascu lar cluste r of cysts measur ing 7 x 4 x 5 mm in the left breast lower inner quadra nt at 8 oclock locate d 4 centim eters from the nipple . Findin g 4: Follow -up examin ation was perfor med for the cluste r of cysts in the left breast , 9 oclock seen on 2014. On the presen t examin ation, there is a cluste r of cysts measur ing 15 millim eters in the left breast at 9 oclock locate d 4 centim eters from the nipple . Findin g has decrea sed in size. Findin g 5: There is an oval avascu lar compli cated cyst with circum scribe d margin s measur ing 5 millim eters seen in the right breast lower outer quadra nt at 8 oclock locate d 4 centim eters from the nipple , with long axis parall el to the chest wall. Findin g 6: There is a stable avascu lar cluste r of cysts measur ing 9 millim eters seen in the right breast upper outer quadra nt at 10 oclock locate d 4 centim eters from the nipple . IMPRES MARK: Findin g 1: Stable cluste r of cysts in the left breast upper outer quadra nt at 2 oclock locate d 4 centim eters from the nipple is probab ly benign . Short interv al follow up ultras ound of the left breast in 6 months is recomm ended. Findin g 2: Compli cated cyst in the left breast at 3 oclock locate d 5 centim eters from the nipple is probab ly benign . Short interv al follow up ultras ound of the left breast in 6 months is recomm ended. Findin g 3: Stable cluste r of cysts in the left breast lower inner quadra nt at 8 oclock locate d 4 centim eters from the nipple is probab ly benign . Short interv al follow up ultras ound of the left breast in 6 months is recomm ended. Findin g 4: Cluste r of cysts in the left breast at 9 oclock locate d 4 centim eters from the nipple is benign . Patien t should return for mammog raphic follow up as recomm ended on the most recent mammog stephanie report . Findin g 5: Compli cated cyst in the right breast lower outer quadra nt at 8 oclock locate d 4 centim eters from the nipple is benign . Patien t should return for mammog raphic follow up as recomm ended on the most recent mammog stephanie report . Findin g 6: Stable cluste r of cysts in the right breast upper outer quadra nt at 10 oclock locate d 4 centim eters from the nipple is benign . Patien t should return for mammog raphic follow up as recomm ended on the most recent mammog stephanie report . The patien t will receiv e a lay summar y of the result s of this breast imagin g exam. Lay summar ies for mammog stephanie examin ations will also identi fy the patien ts person al breast tissue compos ition as requir ed by state law. BIRADS Catego ry 3: Probab ly Benign *BREAS T COMPOS ITION Breast compos ition descri ptions are based on the standa rd practi ce guidel jaye of the ACR BI-RAD S [place]. A refere nce guide is provid ed below. BREAST COMPOS ITION CATEGO LIO - BIRADS VERSIO N V a. The breast s are almost entire ly fatty. b. There are scatte red areas of fibrog landul ar densit y. c. The breast s are hetero geneou sly dense, which may obscur e small masses . d. The breast s are extrem jim dense, which lowers the sensit ivity of mammog stephanie. Patien ts in catego lio c. and d. may qualif y for supple mental screen ing exams. Thank you for referr ing your patien t to us, Katherine kaur D.O. (Elect jaya bagley Signed - 2016 09:01) [facility] [place] [address], [place], [address], 01/10/2017 12:22:38 Result Notes None recorded. Problems Name Problem SNOMED Code Status Onset Date Resolution Date Notes Provider Name and Address Organization Details Recorded Time Mammography finding 792968090 Active Rosa domingo, [facility] 6 10:52:46 Hearing loss 08719421 Active 2011 Rosa Francois null, [facility] 6 10:52:46 Migraine 59280232 Active 2014 Rosa Francois null, [facility] 6 10:52:46 Seasonal allergic rhinitis 172400832 Active 2014 Rosa domingo, [facility] 6 10:52:46 Sleep apnea 17898395 Active 2014 Rosa domingo, [facility] 6 10:52:46 Anxiety state 982298024 Active 2011 Rosa domingo, [facility] 6 10:52:46 Depressive disorder 29637300 Active 2011 Rosa domingo, [facility] 6 10:52:46 Problem Notes None recorded. Procedures Surgical History Date Name Laterality Status Provider Name and Address Organization Details Recorded Time 7 Colposcopy Procedure Note completed NIRMAL CARLSON MD [address], [address], [facility] 01/24/2017 21:39:31 7 Colposcopy completed Rosajennifer Francois [facility] 01/24/2017 13:30:49 7 [id number] completed NIRMAL CARLSON MD [address], [address], [facility] 01/05/2017 09:51:07 7 [id number] completed NIRMAL CARLSON MD [address], [phone], [facility] 01/05/2017 09:51:19 7 [id number] completed NIRMAL CARLSON MD [address] [facility], [place], [address], [facility] 01/05/2017 09:50:59 7 [id number] completed NIRMAL CARLSON MD [address], [address] [place] [address], [place], [phone], [facility] 01/05/2017 09:51:13 7 [id number] completed NIRMAL CARLSON MD 175 [facility], [address] [place] [address], [place], [address], [facility] 01/05/2017 09:50:56 7 [id number] completed NIRMAL CARLSON MD 175 [facility], [address] [place] [address], [phone], [facility] 01/05/2017 09:51:02 7 Date of Last Pap Smear completed Rosa Francois [facility] 01/23/2017 11:04:27 6 Date of Last Mammogram completed Chichi Bai [facility] 06/13/2016 12:15:10 6 [id number] completed NIRMAL CARLSON MD 175 [facility], [address] [place] [address], [phone], [facility] 12/21/2015 11:33:41 6 [id number] completed NIRMAL CARLSON MD 175 [facility], [address] [place] [address], [phone], [facility] 12/21/2015 11:33:41 6 [id number] completed NIRMAL CARLSON MD 175 [facility], [address] [place] [address], [phone], [facility] 12/21/2015 11:33:41 6 [id number] completed NIRMAL CARLSON MD 175 [facility], 3rd Floor, [place], [address], [place] - [facility] 12/21/2015 11:33:41 6 [id number] completed NIRMAL CARLSON MD 175 [facility], [address], [place], [address], [place] - [facility] 12/21/2015 11:33:41 6 [id number] completed NIRMAL CARLSON MD 175 [facility] [address], [place], [address], [place] - [facility] 12/21/2015 11:34:48 1 Cryotherapy of the cervix completed Rosa Francois [place] - [facility] 12/21/2015 11:07:24 Imaging Results Imaging Date Name Status LastModified by [facility] Details LastModified Time 06/13/2016 MAMMO, screening, digital, bilateral completed [id number] [facility] [place] [address], [place], [address], 06/18/2016 09:47:55 06/13/2016 ultrasound, breast completed [address] [facility] [address], [place], [address], 08/08/2016 17:48:50 01/08/2017 US, breast, bilateral completed [facility] [place] [address], [place], [address], 01/10/2017 12:22:38 Procedure Notes None recorded. Medical Equipment None Reported. Allergies Allergen ID Allergen Name Allergen Category Reaction Reaction Severity Criticality Documentation Date Start Date Code Code System Note Provider Name and Address Organization Details Recorded Time 866781 No known allergy (situatio n) Not available Not available Not available Not available 02/27/20152012 19386 6003 SNOMED Rosa Francois null, [place] - [facility] 6 12:27:00 [id number] lidocaine medicatio n hives moderate Not available 01/04/2017 6387 RxNorm Desire Pellrine null, [place] - [facility] 7 16:09:49 Medications Name Sig Start Date Stop Date Status Note LastModified by Organization Details LastModified Time fluoxetin e 40 mg capsule TAKE 1 CAPSULE (40MG) BY ORAL ROUTE EVERY DAY IN THE MORNING 01/04 completed Not Available Not Available Not Available amoxicill in 500 mg capsule active Not Available Not Available Not Available azithromy alpesh 250 mg tablet active Not Available Not Available No t Available rizatript an 10 mg tablet TAKE 1 TABLET BY ORAL ROUTE ONCE, MAY REPEAT AT 2 HOUR INTERVAL S; DO NOT EXCEED 30 MG IN 24 HOURS 2014 active Not Available Not Available Not Avai lable Flonase 50 mcg/actua tion nasal spray,estephania pension SPRAY 1 SPRAY BY INTRANAS AL ROUTE EVERY DAY IN EACH NOSTRIL 2014 active Not Available Not Available Not Avai lable triamcino lone acetonide 0.1 % topical cream prn active Not Available Not Available Not Available benzonata te 100 mg capsule active Not Available Not Available Not Available simvastat in 5 mg tablet 12/11 completed PRESCRIB ED ELSEWHER E Not Available Not Available Not Available rizatript an 10 mg disintegr ating tablet 01/24 completed Not Available Not Available Not Available cephalexi n 500 mg capsule 01/04 completed Not Available Not Available Not Available nortripty line 10 mg capsule TAKE 2 CAPSULE BY ORAL ROUTE 3 TIMES EVERY DAY 12/11 completed PRESCRIB ED ELSE[facility] E Not Available Not Available Not Available Wellbutri n 75 mg tablet 12/11 completed PRESCRIB ED [facility] E Not Available Not Available Not Available gabapenti n 300 mg capsule active Not Available Not Available Not Available monteluka st 10 mg tablet 01/24 completed Not Available Not Available Not Available gabapenti n 100 mg capsule 12/11 completed PRESCRIB ED ELSEWHER E Not Available Not Available Not Available azelastin e 137 mcg (0.1 %) nasal spray SPRAY 2 SPRAY BY INTRANAS AL ROUTE 2 TIMES EVERY DAY IN EACH NOSTRIL active Not Available Not Available No t Available multivita min capsule TAKE 1 CAPSULE BY ORAL ROUTE EVERY DAY 2014 active Not Available Not Available Not Avai lable Junel 11/24 (21) 1 mg-20 mcg tablet Take 1 tablet every day by oral route. active Not Available Not Available No t Available Prilosec OTC 20 mg tablet,de layed release TAKE 1 TABLET BY ORAL ROUTE PRN 2014 active Not Available Not Available Not Avai lable Loestrin 24 Fe 1 mg-20 mcg (24)/75 mg (4) tablet TAKE 1 TABLET BY MOUTH ONCE DAILY 07/17 completed Not Available Not Available Not Available ProAir HFA 90 mcg/actua tion aerosol inhaler active Not Available Not Available Not Available Migraine Pain Reliever 250 mg-250 mg-65 mg tablet 12/11 completed PRESCRIB ED ELSEWHER E Not Available Not Available Not Available Mucinex 1,200 mg tablet, extended release active Not Available Not Available Not Available Zyrtec 10 mg capsule active Not Available Not Available Not Available I-Caps 280 mg-10 mg-2 mg capsule active Not Available Not Available Not Available Minastrin 24 Fe 1 mg-20 mcg (24)/75 mg (4) chewable tablet TAKE 1 TABLET DAILY 01/24 completed colpo 01/24/17 Not Available Not Available Not Available Fluarix Quad 6877-8519 (PF) 60 mcg (15 mcg x 4)/0.5 mL IM syringe 01/04 completed Not Available Not Available Not Available Vitals Date Recorded Body height Body mass index (BMI) Body weight Systolic blood pressure Diastolic blood pressure Provider Name and Address Organization Details Last Updated DateTime 12/21/2015 167.005 cm 29.4 kg/m2 80654.21 897 g 110 mm[Hg] 74 mm[Hg] Rosa Francois [facility] 6 11:07:36 Date Recorded Body height Body weight Body mass index (BMI) Systolic blood pressure Diastolic blood pressure Provider Name and Address Organization Details Last Updated DateTime 01/04/2017 167.64 cm 12715.85 g 25.2 kg/m2 128 mm[Hg] 84 mm[Hg] Desire Velasquez [facility] 7 16:23:15 Date Recorded Body height Body weight Body mass index (BMI) Systolic blood pressure Diastolic blood pressure Provider Name and Address Organization Details Last Updated DateTime 01/24/2017 167.64 cm 84800.41 g 25.2 kg/m2 102 mm[Hg] 80 mm[Hg] Rosa Francois [facility] 7 13:43:52 Social History Question Answer Notes LastModified by [employer] Details LastModified Time Tobacco Smoking Status Never Smoker Rosa Francois [facility], [facility] 12/21/2015 10:54:57 What Is Your Level Of Alcohol Consumption? Occasional Weekends Information not available 12/21/2015 Is Blood Transfusion Acceptable In An Emergency? 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 Yes Information not available 01/04/2017 Drug Use? No Information no t available 01/04/2017 Do You Feel Safe At Home? Yes Information not available 12/21/2015 How Many Children Do You Have? 1 Information not available 01/04/2017 How Much Tobacco Do You Smoke? No Information not available 01/03/2017 General Stress Level Low Information not available 01/04/2017 How Many Years Have You Smoked Tobacco? 0 Information not available 01/03/2017 Have You Recently (within The Last 12 Weeks, Or During A Current ) Traveled To Or Lived In A Zika-affected Area? No Information not available 01/04/2017 Sex: Unknown Functional Status Question Answer Note LastModified by [employer] Details LastModified Time What is your exercise level? Occasional Information not available 01/04/2017 Mental Status None recorded. Family History Relationship Description Onset Age of this Age Resolved Age Notes LastModified by Organization Details LastModified Time Mother Malignant neoplasm of uterus Not available 2015 10:54:57 Mother Malignant tumor of thyroid gland GM kpellrine Not available 2016 16:09:49 Mother Malignant neoplasm of uterus API-13 Not available 2016 16:00:40 Father Malignant hypertension kpellrine Not available 12/2016 16:09:49 Notes:no known colon ovarian or breast cancer Medical History Condition Response Depression Y Anxiety Disorder Y Gynecological History Statement/Question Response Abnormal Pap Yes Current Control Method Oral Contra ceptives Date of Last Colonoscopy Date of Last Mammogram 06/13/2016 Date of last DEXA Date of LMP 01/03/2017 Sexually Active? Y Colposcopy 01/24/2017 Date of Last Pap Smear 01/04/2017 Age at Menarche 12 Last HPV Result Positive Obstetrics History GPAL:G 3 P 1 0 2 1 Type Value Full Term 1 Induced 1 Spontaneous 1 Living 1 Total 3 Past Encounters Encounter ID Performer Location Encounter Start Date Encounter Closed Date Diagnosis/Indication Diagnosis SNOMED-CT Code Diagnosis ICD10 Code [id number] NIRMAL CARSLON MD [place] [address] 7 12/21/2015 10:23:41 12/21/2015 11:52:29 Gynecologic examination 18279340 Z01.411 Z01.419 Contraception care 80240 5005 Z30.40 [id number] NIRMAL CARLSON MD [place] [address] 01/04/2017 15:46:20 01/04/2017 17:06:21 Gynecologic examination 54060280 Z01.868 [id number] NIRMAL CARLSON MD [place] [address] 7 01/24/2017 13:20:17 01/24/2017 14:26:47 Atypical squamous cells of undetermined significance on cervical Papanicolaou smear 201086791 R87.610 Polyp at cervical os 248 218974 N84.1 Health Concerns Section Related Observation LastModified by Organization Detai ls LastModified Time None Recorded Concern Status LastModified by Organization Details LastModified Time None Recorded Advance Directives Directive None Recorded Payers Encounter Date Sequence Insurance Name Policy Number Policy Rasmussen Covered Member ID Rasmussen Member ID Guarantor Name 12/21/2015 1 [place] [facility] [employer] [id number] Hetal Monk [id number] Hetal Monk 01/04/2017 1 [place] [facility] damntheradio [place] [facility] [employer] [id number] Hetal Monk [id number] Hetal Zhengjonathankrystina 01/24/2017 1 [place] [facility] ([employer] [facility] [employer] [id number] Hetal Monk [id number] Hetal Monk Notes Date Note Type Note Provider Name and Address Organization Details Recorded Time 12/21/2015 text/html [facility] Annual GYNReported bypatient.History:no gynecologic complaints; no change in interval history; . living with a friend in [facility]. Daughter in an apartment. had an issue with ( psychotic) and daughter and police called. precipitated divorce. feels safe. Urinary symptoms:No hematuria;Stress incontinence Vulva:No genital lesion Vagina:Normal vaginal discharge Breast:No breast pain; No breast lump; No nipple discharge Current Contraception:Satisf ied with current contraception; Not sexually active; . not sexually active. Sexual complaints:No sexual complaints; No pain during intercourse Psychological symptoms:No depression; No anxiety; No PMDD Preventive measures:Encourage self breast examination; Encourage regular exercise; Followed with Q3 year pap smear and high risk HPV typing; Mammogram performed within the past year; Needs to schedule colonoscopyNotes:pap not indicated due to age. STD screening offered. NIRMAL CARLSON MD 175 [facility], 3rd Floor, [place], [address], [facility] - [facility] 12/22/2015 21:28:34 01/04/2017 text/html [facility] Annual GYNReported bypatient.Menstrual cycle:Normal menses Urinary symptoms:No hematuria; No incontinence Vulva:No genital lesion Vagina:Normal vaginal discharge Breast:No breast pain; No breast lump; No nipple discharge Current Contraception:Satisf ied with current contraception; Oral contraceptives Sexual complaints:sexually active yes; No sexual complaints; No pain during intercourse; Normal libido Menopausal symptoms:Normal vaginal lubrication;Insomnia due to night sweats(occ) Psychological symptoms:No depression; No anxiety; No PMDDNotes:Presents for routine annual exam. . living in her friend's house, renting a room. good situation. daughter in college. living on her own with financial help. dating and sexually active. safe but not a perfect match . he travels alot. NIRMAL CARLSON MD [address] [place] [address], [address] [place] [address], [phone], [facility] - [facility] 01/05/2017 09:53:07 01/24/2017 text/html [facility] Abnormal Pap SmearReported bypatient.Onset/ ng:pap smear performed on: (01/04/17) Quality:pap smear results: (epithelial cell abnormality) Associated Symptoms:no vaginal/vulvar pain; no vulvar lesions/growths; no vaginal discharge; no postcoital bleeding; no dyspareunia NIRMAL MD ALDO [address] [place] [address], [address] [place] [address], [phone], [facility] 01/24/2017 21:42:19 OBGyn Episode No OBEpisode recorded.
[2024-11-03 14:30] LABS: MANUAL DIFF FLAG NO
[2024-11-03 14:39] LABS: Basophils Absolute Auto 0.1 X10*3/uL (0.0-0.2); Basophils Percent Auto 0.8 % (0-2); Eosinophils Absolute Auto 0.1 X10*3/uL (0.0-0.4); Eosinophils Percent Auto 1.7 % (0-4); Hematocrit 43.9 % (37.0-47.0); Hemoglobin 14.6 g/dl (12.0-16.0); Imm Gran Abs Auto 0.02 X10*3/uL (0.00-0.03); Imm Gran Pct Auto 0.3 % (0.0-0.4); Lymphocytes Absolute Auto 1.9 X10*3/uL (1.2-4.9); Mean Corpuscular HGB Conc 33.3 g/dl (31.0-35.0); Mean Corpuscular Hemoglobin 30.9 pg (27.0-33.0); Mean Platelet Volume 10.5 fL (9.4-12.3); Monocytes Absolute Auto 0.5 X10*3/uL (0.1-1.2); Monocytes Percent Auto 7.3 % (2-11); Neutrophils Absolute Auto 3.8 x10*3/uL (2.0-8.3); Neutrophils Percent Auto 59.9 % (45-73); Platelet Count 244 X10*3/uL (160-400); Red Blood Count 4.72 X10*6/uL (4.20-5.50); White Blood Count 6.3 X10*3/uL (4.8-10.8)
[2024-11-03 14:45] LABS: Estimated Average Glucose 126 mg/dL; Hemoglobin A1C 161.4703 umol/L; Total Hemoglobin (HGBA1C) 3838.4211 umol/L
[2024-11-03 15:02] LABS: Alanine Aminotransferase 39 U/L (0-31); Albumin Level 4.4 g/dL (3.5-5.0); Alkaline Phosphatase 134 U/L (39-117); Anion Gap 14 (12-20); Aspartate Amino Transferase 32 U/L (5-31); Bilirubin Total 0.5 mg/dL (0.0-1.0); Blood Urea Nitrogen 11 mg/dL (9-16); Calcium 9.9 mg/dL (8.4-10.2); Carbon Dioxide 27 mmol/L (22-29); Chloride 105 mmol/L (96-108); Cholesterol 254 mg/dL (<200); Estimated Glomerular Filt Rate > 60; Glucose Random 128 mg/dL (60-115); HDL Cholesterol 56 mg/dL (>40); LDL Cholesterol Calculated 177 mg/dL (<100); Potassium 4.5 mmol/L (3.3-5.1); Sodium 141 mmol/L (135-145); Total Protein 7.4 g/dL (6.5-8.0); Triglycerides 108 mg/dL (<150)
[2024-11-03 15:13] LABS: TSH reflex Free T4 1.45 uIU/mL (0.32-4.0)
== END 2024-11-03 11:01 | disposition home or self-care (01) ==
LOC: HO.WFDLDS 11:00
PROVIDERS: Visit Provider Internal Medicine
DX: Z00.00 Encounter for general adult medical examination without abnormal findings (principal); E27.8 Other specified disorders of adrenal gland; Z98.890 Other specified postprocedural states; R10.30 Lower abdominal pain, unspecified; Z13.1 Encounter for screening for diabetes mellitus
CPT/HCPCS: 36415; 80053; 80061; 83036; 84443; 85025

== ENCOUNTER 2024-11-10 08:53 | Day surgery (SDC) | payer OTHER, SELFPAY ==
[2024-11-10 09:09] VITALS: BMI 28.2
--- NOTE | 2024-11-10 10:13 | MHC.SHP ---
Pre-Procedural Eval Section A - 24 Hr Update-Section A only Date of Service: 11/10/24 The patient is an INPATIENT: No Changes since office visit: No Cold of Flu in the past 2 weeks, No New Medical Problems, No Changes in Medication and No Patient answered all questions The patient has been examined within 24 hours of the surgical procedure. The History & Physical has been completed within 30 days and I have reviewed it.: Yes Section B - Complete if H&P > 30 days Chief Complaint: Cellulitis of right finger Allergies: Allergies Allergy/AdvReac Type Severity Reaction Status Date / Time lidocaine Allergy Intermediate Itching Verified 10/21/24 15:56 Plan Diagnosis/Plan: Unchanged I have reviewed the history and physical and performed a pertinent physical examination on my patient. No changes have occurred unless specified. Time Spent With Patient Time: Total time managing care of this patient today ____ minutes.
--- NOTE | 2024-11-10 10:13 | W.PM.OPN ---
Operative Note Operative Note Date of Service: 11/10/24 Narrative: Operative Note Preop diagnosis: 1. Right middle finger mass 2. Right middle finger chronic paronychia 3. Right middle finger radial sided nail deformity Postop diagnosis: same Procedure: 1. Right middle finger partial removal of germinal matrix of nail bed, and overlying nail plate 2. Right middle finger mass excision, down to bone 3. Right middle finger I and D Surgeon: Cris Guardado MD [employer] Operator: None Anesthesia: digital block using 1% lidocaine with epinephrine Findings: A well encapsulated white oval mass measuring perhaps 6 mm in diameter by 7 mm in length was removed from the radial aspect of the right middle finger. Superficially it was adherent to the undersurface and radial aspect of the nail bed. Deep it was pushing against bone and creating a deformity in the radial aspect of the distal phalanx. EBL: Less than 5 mL Tourniquet time: None Specimens: Right middle finger cultures, and specimen sent to histopathology Complications: None Disposition: Brought to recovery room in stable condition Plan: Follow-up for 7-10 days for wound check and suture removal and to check pathology and cultures The sutures placed through the nail plate should remain in place until approximately 3 weeks postop. I also sent her with a 3 day supply of Augmentin for infection prevention. Indications: The patient is 59 years old, with an almost 1 year history of a right middle finger radial sided painful mass, and history of chronic paronychia . The risks and benefits of operative treatment including but not limited to risk of damage to blood vessels, nerves, tendons, infection, persistent pain, persistent symptoms, recurrence or possible need for additional surgery were discussed with the patient and the patient wishes to proceed with surgery. Procedure: Once consent was obtained a digital block was performed in the preop area using a combination of 1% lidocaine with epinephrine. The patient was then brought back to the operating suite and placed on the operative table in supine position. A tourniquet was applied to the proximal aspect of the right upper extremity and the limb was prepped and draped in a standard surgical fashion. A finger tourniquet was placed about the base of the middle finger for fewer than 30 minutes. Once assured that we had a good block, I made a longitudinal incision in the radial aspect of the right middle finger nail plate, and elevated the radial 25% of the nail plate from the nail bed removing it and placing an on the back table. I made a 1.5 cm longitudinal midlateral incision over the radial aspect of the middle finger at the distal phalanx level. The incision was made through the skin to the subcutaneous tissues using a 15. Blade. I then dissected down to the soft tissue mass on the radial aspect of the middle finger. It was well encapsulated, white and oval in shape. It was adherent to the radial and undersurface of the sterile matrix of the nail bed and extended deeply down to the radial and volar radial aspect of the distal phalanx. The mass measured perhaps 6 mm in diameter and was perhaps 7-8 mm in length. It did extend to the volar radial aspect of the distal phalanx. I carefully dissected it free from the surrounding tissues using tenotomy and iris scissors. I used a Prentice elevator to elevate the mass from the radial aspect of the distal phalanx. The mass and a small amount of the well a fixed sterile matrix was removed and placed on the back table to be sent for histopathology. I did take a culture swab from the base of the wound. No purulence was visualized. The wound was copiously irrigated with normal saline. As she was missing a small amount of the radial aspect of the nail sterile matrix I decided to remove about 15% of the germinal matrix of the nail bed on the radial side. This was excised using a 15 blade and a small rongeur. Once satisfied with our I&D, mass excision, and removal of part of the nail bed germinal matrix the wound was copiously irrigated with normal saline and hemostasis was obtained with a brief period of local pressure. The skin edges were reapproximated with some 5.0 nylon suture material and a sterile dressing was applied. The patient appears to have tolerated the procedure well and with no complications. All digits were well vascularized at the conclusion of the case.
[2024-11-10 11:34] VITALS: BP 127/80; PULSE 82; RESP 16; O2SAT 98
== END 2024-11-10 11:36 | disposition home or self-care (01) ==
PROVIDERS: PCP Internal Medicine; Visit Provider Orthopaedic Surgery
PROC: (CPT 11750; principal; 2024-11-10 09:50)
PROC: (CPT 11750; 2024-11-10 09:50)
DX: L03.011 Cellulitis of right finger (principal); B95.1 Streptococcus, group B, as the cause of diseases classified elsewhere; L60.8 Other nail disorders; R22.31 Localized swelling, mass and lump, right upper limb; M79.644 Pain in right finger(s); R20.8 Other disturbances of skin sensation; Z88.8 Allergy status to other drugs, medicaments and biological substances; Z98.890 Other specified postprocedural states; Z87.891 Personal history of nicotine dependence
CPT/HCPCS: 11750; 11421; 26010; 87070; 87147; 87205; 88304; 88305; J2004

== ENCOUNTER → 2024-11-10 08:53 | Outpatient (BNV) | payer OTHER, SELFPAY | PROVIDERS: PCP Internal Medicine; Visit Provider Orthopaedic Surgery | DX: C44.622 Squamous cell carcinoma of skin of right upper limb, including shoulder (principal); L60.3 Nail dystrophy; L03.011 Cellulitis of right finger | CPT/HCPCS: 11750; 26115 ==

== ENCOUNTER 2025-03-24 08:39 | Outpatient (REF) | payer OTHER, SELFPAY ==
--- NOTE | ~2025-03-24 | XR_ITS ---
EXAMINATION: XR HAND 3 OR MORE VIEWS RIGHT HISTORY: M79.641 - Pain in right hand COMPARISON: Comparison is made with the prior examination dated 10/21/2024. FINDINGS: Three views of the right hand are submitted. Again seen is an erosion involving the radial aspect of the distal tuft of the middle finger. There is no fracture or dislocation. There is moderate osteoarthritis of the 1st carpometacarpal joint with joint space narrowing and osteophyte formation. The soft tissues are unremarkable. XR/XR hand RT min 3V IMPRESSION: 1. Stable erosion involving the radial aspect of the distal tuft of the middle finger. 2. Moderate osteoarthritis of the 1st carpometacarpal joint. Electronically signed by: Stiven Villasenor MD 03/24/2025 01:02 PM EDT
--- OUTSIDE RECORDS SUMMARY | 2025-03-26 08:49 | XMS_ITS | Encounter Summary ---
Author Organization [facility] Address [address] [place] [address] Care Team Providers Care Commercial Carpenter Name Role Phone Gladis Haney MD Primary Care Provider [phone] Pcp, No Primary Care Provider Unavailabl e Encounter Details Date Type Department Care Team (Late st Contact Info) Description 06/19/2016 Scanned Document [facility] [place] 10 [address] [facility] [address] [place] [phone] Provider, Generic Social History Tobacco Use Types [...] on filedocumented in this encounter Care Teams Commercial Carpenter Relationship Specialty Start Date End Date Gladis Haney MD 100 [facility] [address] [place], [place] [phone] PCP - General Internal Medicine 08/06/15 01/22/23 Pcp, No PCP - General General Medicine 01/23/23 documented as of this encounter
--- OUTSIDE RECORDS SUMMARY | 2025-03-26 08:49 | XMS_ITS | Encounter Summary ---
Author Organization [facility] Address [address] [place] [address] Care Team Providers Care Pump Station Operator Name Role Phone Gladis Haney MD Primary Care Provider Pcp, No Primary Care Provider Unavailabl e Encounter Details Date Type Department Care Team (Late st Contact Info) Description 01/08/2017 Scanned Document [facility] [place] 10 100 [facility] [address] [place] [address] Provider, Generic Social History Tobacco [...] on filedocumented in this encounter Care Teams Pump Station Operator Relationship Specialty Start Date End Date Gladis Haney MD 100 [facility] [address] [place] [address] PCP - General Internal Medicine 08/06/15 01/22/23 Pcp, No PCP - General General Medicine 01/23/23 documented as of this encounter
--- OUTSIDE RECORDS SUMMARY | 2025-03-26 08:49 | XMS_ITS | Clinical Summary ---
Author Organization [facility] Address [address] [place] [address] Care Team Providers Care Administrative Program Specialist Name Role Phone Jacqueline Pereira MD Primary Care Provider [phone] Allergies Active Allergy Reactions Criticality Noted Date [...] age to complete this topic Care Teams Administrative Program Specialist Relationship Specialty Start Date End Date Jacqueline Pereira MD PCP - General Internal Medicine 04/24/22
--- OUTSIDE RECORDS SUMMARY | 2025-03-26 08:49 | XMS_ITS | Encounter Summary ---
Author Organization [facility] Address [address] [place] [address] Care Team Providers Care Career Coach Name Role Phone Gladis Haney MD Primary Care Provider Pcp, No Primary Care Provider Unavailabl e Encounter Details Date Type Department Care Team (Late st Contact Info) Description 09/04/2017 Scanned Document [facility] 10 100 [facility] [address] [place] [phone] Provider, External, [address] [place] [address] Social History Tobacco Use Types Packs/Day Years [...] on filedocumented in this encounter Care Teams Career Coach Relationship Specialty Start Date End Date Gladis Haney MD 100 [facility] [address] [place] [address] PCP - General Internal Medicine 10/2/15 3/20/23 Pcp, No PCP - General General Medicine 01/23/23 documented as of this encounter
--- OUTSIDE RECORDS SUMMARY | 2025-03-26 08:49 | XMS_ITS | Encounter Summary ---
Author Organization [facility] Address [address] [place] [address] Care Team Providers Care Shop Firer/Fireman Name Role Phone Gladis Haney MD Primary Care Provider [phone] Gladis Haney MD Primary Care Provider [phone] Pcp, No Primary Care Provider Unavailabl e Encounter Details Date Type Department Care Team (Late st Contact Info) Description 06/08/2015 Scanned Document [address] [place] [phone] Provider, Generic Social History Tobacco Use Types [...] on filedocumented in this encounter Care Teams Shop Firer/Fireman Relationship Specialty Start Date End Date Gladis Haney MD 100 [facility] [address] [place] [address] PCP - General Internal Medicine 08/06/15 01/22/23 Gladis Haney MD [address] [place] [address] PCP - General 08/05/15 Pcp, No PCP - General General Medicine 01/23/23 documented as of this encounter
--- OUTSIDE RECORDS SUMMARY | 2025-03-26 08:49 | XMS_ITS | Encounter Summary ---
Author Organization [facility] Address [address] [place] [address] Care Team Providers Care Siebel Solution Architect Name Role Phone Gladis Haney MD Primary Care Provider [phone] Pcp, No Primary Care Provider Unavailabl e Reason for Visit * Reason Comments Medication Refill Encounter Details Date Type Department Care Team (Late st Contact Info) Description 08/14/2016 Refill [facility] 10 100 [facility] [address] [place] [address] Gladis Haney MD 100 [facility] [address] [place] [address] Allergic rhinitis, unspecified allergic rhinitis type Social [...] type documented in this encounter Care Teams Siebel Solution Architect Relationship Specialty Start Date End Date Gladis Haney MD [address] [place] [address] [address] [place] [address] PCP - General Internal Medicine 08/06/15 01/22/23 Pcp, No PCP - General General Medicine 01/23/23 documented as of this encounter
--- OUTSIDE RECORDS SUMMARY | 2025-03-26 08:49 | XMS_ITS | Clinical Summary ---
Author Organization [facility] Address [address] [place] [address] Care Team Providers Care Trimmer Loader Name Role Phone Pcp, No Primary Care [...] ( - 2023- season) 2024 Care Teams Trimmer Loader Relationship Specialty Start Date End Date Pcp, No PCP - General General Medicine 01/23/23
--- OUTSIDE RECORDS SUMMARY | 2025-03-26 08:49 | XMS_ITS | Clinical Summary ---
Author Organization [facility] Address [address] [place] [address] Care Team Providers Care Assembly Machine Set Up Mechanic Name Role Phone Jacqueline Pereira MD Primary Care Provider [phone] Allergies Active Allergy Reactions Criticality Noted Date [...] high grade PETRA 2 08/05/2024 Breast cancer ([facility] V24, [facility] V28) 024 Malignant neoplasm of upper- outer quadrant of right breast in female, estrogen receptor positive ([facility] V24, [facility] V28) 12/27/2023 Left adrenal mass ([facility] V24) 08/22/2022 Hx of appendectomy 08/21/2022 Encounters Date Type Department Care Team Description 03/18/2025 3:45 PM EDT Office Visit [facility] Hematology Oncology [address] [place] [phone] Sulaiman Olivarez MD Malignant neoplasm of upper-outer quadrant of right breast in female, estrogen receptor positive ([facility] V24, [facility] V28) (Primary Dx); Reactive depression; Squamous cell [...] HISTORICAL MASTOIDECTOMY BREAST SURGERY 2020 Right PROCEDURE: [place] UNLISTED PROCEDURE BREAST; COMMENT: ca BREAST BIOPSY [...] of iritis Migraine 11/07/2017 DX:Migraine Breast cancer ([facility] V24, [facility] V28) 2020 DX:Breast cancer ([facility]) Family History Medical History Relation Name Comments [...] for your loved ones. For example, child care teacher or elderly care for an older adult? [...] EDT Office Visit [facility] [address] [facility] [address] [place] [phone] Charline Huggins MD [address] [facility] [address] [place] [address] 08/18/2025 4:30 PM EDT Appointment Radiology Department - [place] [address] [place] [address] 10/07/2025 3:45 PM EST Office Visit [facility] Hematology Oncology [address] [place] [address] Sulaiman Olivarez MD [address] [place] [address] Health Maintenance Due Date Last [...] Breast cancer risk category Low (<15%) Location: [facility], [address] [place] [address], [place], [address], [phone] Procedure Note Irma Sr MD - 09/02/2024 [...] Breast cancer risk category Low (<15%) Location: [facility], [address] [place] [address], [address], [phone] Sonia Torres MD IMG XR PROCEDURES Final Result * Cervical Cancer Screening: HPV (10/02/2023) [facility] Cervical Cancer Screening: HPV negative, abstracted Historical Provider HEALTH MAINTENANCE Final Result * Colonoscopy (10/19/2021) [facility] Colonoscopy no interpretation , abstracted Anatomical Region Laterality Modality Other Historical Provider HEALTH MAINTENANCE Final Result * Hepatitis C Screening (09/07/2017) [facility] Hepatitis C Screening abstracted Historical Provider HEALTH MAINTENANCE Final Result from Last 3 Months or Most Recently Relevant to Health Maintenance Insurance [facility] Care Teams Assembly Machine Set Up Mechanic Relationship Specialty Start Date End Date Jacqueline Pereira MD [address] [place] [address] PCP - General Internal Medicine 08/15/22
--- OUTSIDE RECORDS SUMMARY | 2025-03-26 08:49 | XMS_ITS | Data Portability ---
Author Organization [facility] Address [address] [address] Care Team Providers Care Rn Ante Partum Name Role Phone PRAMOD BANERJEE Primary Care Provider [phone] Assessment Encounter Date Assessment Date Assessment LastModified [...] and otorrhea. Recommend follow-up in 1 year. Not available 11/25/2024 10:34:52 Plan of Treatment Reminders Order Date Submit Date Provider Last Modified By Organization Details Last Modified Time Details Appointments None recorded. Lab None recorded. Referral None recorded. Procedures None recorded. Surgeries None recorded. Imaging None recorded. Medication Orders ciprofloxac in 0.3 %-dexametha sone 0.1 % ear drops,suspe nsion 2024 025 [facility][id number], [address] [facility], [place], [address], 10:27:31 Patient TargetsNo targets recorded. Patient InstructionsNo [...] conductive and sensorineur al hearing loss, bilateral 900142881 Active 2024 Karen domingo [place] - [facility] 09:50:19 Postmastoid ectomy complicatio n 88950311 Active 2024 BRAYAN ARITA MD [address] [place] [address], [place], [phone], [facility] - [facility] 5 10:26:00 Otorrhea of right ear 5352087239911 106 Active 2024 BRAYAN ARITA MD [address] [place] [address], [place], [phone], [facility] - [facility] 10:26:56 Ossicles absent 118572864 Active 2024 BRAYAN ARITA MD [address] [place] [address], [phone], [facility] - [facility] 5 10:29:10 Marginal perforation of right tympanic membrane 4462870385509 109 Active 2024 BRAYAN ARITA MD [address] [place] [address], [phone], [facility] - [facility] 5 10:29:31 Problem Notes None recorded. Procedures Surgical History Date Name Laterality Status Provider Name and Address Organization Details Recorded Time Comp Audio with Tymps - 06096 & 39046 completed Karen Lund [place] - [facility] 11/25/2024 09:50:10 Debridement of Mastoid Cavity bilat completed BRAYAN ARITA MD [address] [place] [address], [phone], [place] - [facility] 11/25/2024 10:23:23 Imaging Results Imaging Date Name Status LastModified by [facility] Details LastModified Time 05/20/2024 audiogram completed [email or web address] Information n ot available 11/25/2024 10:49:08 11/25/2024 audiogram completed BARCODE Information no t available 11/25/2024 14:57:36 Procedure Notes None recorded. Medical Equipment None Reported. Allergies Allergen ID Allergen Name Allergen Category Reaction Reaction Severity Criticality Documentation Date Start Date Code Code System Note Provider Name and Address Organization Details Recorded Time 278836 lidocaine medicatio n hives moderate Not available 11/25/2024 6387 RxNorm Maile domingo [facility] 5 09:55:44 092642 thimerosa l medicatio n hives severe Not available 11/25/2024 06936 RxNorm Maile domingo [facility] 5 09:55:44 837433 cat dander environme nt other mild Not available 11/25/2024 37283 UNK Maile domingo [facility] 5 09:55:44 339669 mold extract environme nt headache moderate Not available 11/25/2024 24590 8 RxNorm Maile domingo [facility] 5 09:55:44 Medications Name Sig Start Date [...] Details Last Updated DateTime 11/25/2024 167.64 cm 80128.7 g Maile Lyon [place] - [facility] 11/25/2024 09:55:36 Social History None recorded. Functional Status None recorded. Mental Status None recorded. Family History Relationship Description Onset Age of this Age Resolved Age Notes LastModified by Organization Details LastModified Time Mother Allergy [email or web address] Not availa ble 11/25/2024 09:55:48 Mother Disorder of thyroid gland [email or web address] Not available 09:55:48 Medical History Condition Response Allergies/Hayfever Y Heart Problems N Anxiety Y Tonsil Infections N Emphysema N Migraines Y Thyroid Problems N Glaucoma N Depression Y COPD N Developmental Delay N Nasal or Sinus Problems Y Anemia N Immune System Disorder N Anesthesia Complications Y Heart Attack ([place]) N Other Skin Condition Y Diabetes N [...] SNOMED-CT Code Diagnosis ICD10 Code Diagnosis Note [id number] BRAYAN ARITA MD [facility] [address] [address] 11/25/2024 08:45:42 11/25/2024 10:36:01 Mixed conductive and sensorineural hearing loss, bilateral 599369226 H90.6 Audiologic al evaluation results:Ri ght ear:{{Norm [...] hearing aid suraj e. Postmastoi dectomy complication 80916919 H95.193 Otorrhea of right ear 10 97779173 198092 H92.11 Ossicles absent 21794196 9 H74.393 Marginal p erforation of right tympanic membrane 5245066181 747977 H72.2X1 Health Concerns Section Related Observation LastModified by Organization Detai ls LastModified Time None Recorded Concern Status LastModified by Organization Details LastModified Time None Recorded Advance Directives Directive None Recorded Payers Insurance Date Sequence Insurance Name Policy Number Policy Rasmussen Covered Member ID Rasmussen Member ID Guarantor Name 11/25/2024 1 [employer] [id number] 1 Hetal Monk [id number] Hetal Monk Notes Date Note Type Note Provider Name and Address Organization Details Recorded Time 11/25/2024 text/html 59-year-old fema le with long otologic history. 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 She had multiple additional procedures up until she was in college. Most of her procedures were done down in [place]. She has bilateral canal wall down mastoidectomy cavities. Currently using binaural amplification dispensed through [employer] in [place]. She is doing well with this technology overall. She has occasional discharge from the right ear. BRAYAN ARITA MD [address] [place] [address], [place], [address], [facility] - [facility] 11/25/2024 10:36:04 OBGyn Episode No OBEpisode recorded.
--- OUTSIDE RECORDS SUMMARY | 2025-03-26 08:49 | XMS_ITS | Data Portability ---
Author Organization [place] - [facility]'s [facility], [facility] Address [id number] [place] [address] Care Team Providers Care Computer System Technician Name Role Phone SIRIA CHINO Primary Care Provider SIRIA CHINO Referring Provider [phone] NIRMAL CARLSON Glass Cutting Machine Operator Unavailable SIRIA CHINO Primary Care Provider Assessment No assessment recorded. Plan of Treatment Reminders Order Date Submit Date Provider Last Modified By Organization Details Last Modified Time Details Appointments None recorded. Lab test, urine 2016 017 In-Office Order, Internal Use Only DO Not Attach Compendium DO Not Attach Compendium, Do Not Delete/merge, [id number] 7 14:21:03 surgical pathology study - ascus, HPV+. ECC done 2016 017 [facility], [address] [place], [address] 7 15:35:52 surgical pathology study 2016 017 [email or web address] [facility], [address] [place], [address] 7 10:49:00 surgical pathology study - ascus, HPV+ pap. 2016 017 [email or web address] [facility], [address] [place], [address] 7 10:49:00 pap, IG + CT/NG + HR HPV + reflex HPV (16+18) 2016 017 [facility], [address] [place], [address] 7 08:35:34 urinalysis , dipstick 2016 017 In-Office Order, Internal Use Only DO Not Attach Compendium DO Not Attach Compendium, Do Not Delete/merge, [id number] 7 17:01:45 fecal occult blood, stool 2016 017 In-Office Order, Internal Use Only DO Not Attach Compendium DO Not Attach Compendium, Do Not Delete/merge, [id number] 7 17:01:45 urinalysis , dipstick 2015 016 In-Office Order, Internal Use Only DO Not Attach Compendium DO Not Attach Compendium, Do Not Delete/merge, [id number] 6 21:28:21 fecal occult blood, stool 2015 016 In-Office Order, Internal Use Only DO Not Attach Compendium DO Not Attach Compendium, Do Not Delete/merge, [id number] 6 21:28:22 Referral None recorded. Procedures None recorded. Surgeries None recorded. Imaging MAMMO, screening, digital, bilateral, w/ CAD 2016 017 [facility] [place], [address], [place], [address], 7 08:35:54 US, breast, bilateral [address] [facility] [place], [address], [address], [place], [address], 7 09:04:09 MAMMO, screening, digital, bilateral - Please Reflex to breast ultrasound if mammogram shows dense breasts [address] [facility], [address], [place], [address], 6 11:35:16 ultrasound , breast - left diagnostic u/s follow up. 2015 016 [email or web address] [facility], [address], [place], [address], 6 08:04:45 Medication Orders Minastrin 24 Fe 1 mg-20 mcg (24)/75 mg (4) chewable tablet 2015 016 Not available 7 13:39:13 Minastrin 24 Fe 1 mg-20 mcg (24)/75 mg (4) chewable tablet 2015 016 Not available 7 13:39:13 Patient TargetsNo targets recorded. Patient Instructions Encounter Date Encounter Id Patient Instructions Last Modified By Organization Details Last Modified Time 12/21/2015 [id number] Patient presents for a well woman exam. [...] exams. We spoke about the recommendation of ? ? ?daily dietary ? ? ?Calcium supplementation and 2000iu of Vitamin D daily. She has been told to schedule a well woman Background Investigator exam in one year and to call us with any question or concerns regarding her health and welfare. Heme + stool. recommend colonoscopy. ? ? ?A heart healthy diet and exercise were recommended.? ? ? Not available 12/22/2015 21:28:22 01/04/2017 [id number] Patient presents for a well woman exam. [...] been told to schedule a well woman Background Investigator exam in one year and to call us with any question or concerns regarding her health and welfare. Not available 01/05/2017 09:52:38 01/24/2017 [id number] abnormal Pap saeed t: care instructions [email or web address] [...] Abnormal Flag Note LastModifiedBy Organization Detail LastModifiedTime 01/25/20 17 01/24/2017 pregn magdalene test, urine Result negati ve Not Available Not Available 13:31:37 01/05/20 17 01/04/2017 fecal occul t blood , stool Occult Blood negati ve Not Available Not Available 17:01:21 01/05/20 17 01/04/2017 urina lysis , dipst ick Interpretati on negati ve Not Available Not Available 16:18:34 01/05/20 17 01/04/2017 urina lysis , dipst ick Leukocytes Negati ve Not Available Not Available 16:18:34 01/05/20 17 01/04/2017 urina lysis , dipst ick Nitrite negati ve Not Available Not Available 16:18:34 01/05/20 17 01/04/2017 urina lysis , dipst ick Urobilinogen Normal : 0.2 mg/dl Not Available Not Available 16:18:34 01/05/20 17 01/04/2017 urina lysis , dipst ick Protein Negati ve Not Available Not Available 16:18:34 01/05/20 17 01/04/2017 urina lysis , dipst ick pH 6.0 Not Available Not Availa ble 01/04/2017 16:18:34 01/05/20 17 01/04/2017 urina lysis , dipst ick Blood Negati ve Not Available Not Available 16:18:34 01/05/20 17 01/04/2017 urina lysis , dipst ick Specific [place] 1.010 Not Available Not Available 12/2016 16:18:34 01/05/20 17 01/04/2017 urina lysis , dipst ick Ketone Negati ve Not Available Not Available 16:18:34 01/05/20 17 01/04/2017 urina lysis , dipst ick Bilirubin Negati ve Not Available Not Available 16:18:34 01/05/20 17 01/04/2017 urina lysis , dipst ick Glucose Negati ve Not Available Not Available 16:18:34 01/05/20 17 01/04/2017 urina lysis , dipst ick Appearance Clear Not Available Not Gemini ilable 01/04/2017 16:18:34 01/05/20 17 01/04/2017 urina lysis , dipst ick Color Yellow Not Available Not Availa ble 01/04/2017 16:18:34 12/21/19 16 12/21/2015 fecal occul t blood , stool Occult Blood positi ve Not Available Not Available 17:13:56 12/21/19 16 12/21/2015 urina lysis , dipst ick Leukocytes Negati ve Not Available Not Available 10:52:46 12/21/19 16 12/21/2015 urina lysis , dipst ick Nitrite negati ve Not Available Not Available 10:52:46 12/21/19 16 12/21/2015 urina lysis , dipst ick Protein Negati ve Not Available Not Available 10:52:46 12/21/19 16 12/21/2015 urina lysis , dipst ick Blood Negati ve Not Available Not Available 10:52:46 12/21/19 16 12/21/2015 urina lysis , dipst ick Glucose Negati ve Not Available Not Available 10:52:46 12/21/19 16 12/21/2015 urina lysis , dipst ick Appearance Clear Not Available Not Gemini ilable 12/21/2015 10:52:46 12/21/19 16 12/21/2015 urina lysis , dipst ick Color Yellow Not Available Not Availa ble 12/21/2015 10:52:46 01/05/20 17 01/11/2017 pap, IG [...] [place] [id number] PATHO LOGIS T: Seymour ruiz M.D., (elec [...] rmed using the APTIM A HPV Assay ([employer] . This assay detec ts E6/E7 [...] 3RD FLOOR ,[place] [address] Labor atory Direc tor: RAAD BOB MD , CLIA: [id number] TY3 [facility] [place] [facility] [address] [place] [address] Labor atory Direc tor: CIPRIANO DIAZ MD, CLIA: [id number] Not Available [facility] [address] [place], [address] 01/11/2017 08:35:34 01/05/20 17 01/11/2017 pap, IG + CT/NG + HR HPV + refle x HPV (16+1 8) neisseria gonorrhoeae RNA,tma NOT DETECT ED not detect ed Not Available [facility] [address] [place], [address] 01/11/2017 08:35:34 01/05/20 17 01/11/2017 pap, IG + CT/NG + HR HPV + refle x HPV (16+1 8) chlamydia trachomatis RNA, tma NOT DETECT ED not detect ed Not Available [facility] [address] [place], [address] 01/11/2017 08:35:34 01/05/20 17 01/11/2017 pap, IG + CT/NG + HR HPV + refle x HPV (16+1 8) message This test was perfo rmed using the APTIM A COMBO 2 Assay ([employer] . The faviola tical perfo rmanc e jeanette cteri stics of this assay , when used to test SureP ath speci mens have been deter mined by [facility] ostic s. Not Available [facility] [address] [facility], [place], [address] 01/11/2017 08:35:34 01/25/20 17 01/25/2017 surgi feliberto [...] nts marcela [place]. [address] x 3 Clini feliberto Diagn osis and [...] [facility]i ng [facility] , [address] [place] [address] CLIA [id number] CL-PO [id number] 7. Not Available [facility] [address] [place] [address], [place], [facility] 01/25/2017 15:35:52 06/13/20 16 06/13/2016 MAMMO , [...] imagin g studie s perfor med at [place] on 2010, 2012 and 2014. MAMMOG KENNY [...] guidel jaye of the ACR BI-RAD S [place]. A refere nce guide is provid ed [...] referr ing your patien t to us, Justin MD (Elect jaya bagley Signed - 2015 11:33) Copy: ISAIAS Sanders MD [facility] [place] [facility] [address] [place] [address] [phone] [facility] [place] [address], [place], [address], 06/18/2016 09:47:55 08/08/20 16 06/13/2016 ultra sound , therese fine No observ ation record ed. [facility] [address], [place], [address], 08/08/2016 17:48:50 01/10/20 17 01/08/2017 US, therese fine, bilat eral HISTOR Y: Vega fine is 51 years old and is seen for screen ing. The vega fine has a histor y of left stereo tactic core biopsy in 2007. The vega t has no person al histor y of breast or ovaria n cancer . The vega t has no family histor y of [...] guidel jaye of the ACR BI-RAD S [place]. A refere nce guide is provid ed [...] to us, Katherine kaur D.O. (Elect jaya yudi Signed - 2016 09:01) [facility] [place] [address], [place], [address], 01/10/2017 12:22:38 Result Notes None recorded. Problems Name Problem SNOMED Code Status Onset Date Resolution Date Notes Provider Name and Address Organization Details Recorded Time Mammography finding 892283066 Active Rosa domingo, [facility] 6 10:52:46 Hearing loss 72664138 Active 2011 Rosa Francois null, [facility] 6 10:52:46 Migraine 20079468 Active 2014 Rosa Francois null, [facility] 6 10:52:46 Seasonal allergic rhinitis 252783720 Active 2014 Rosa Francois null, [facility] 6 10:52:46 Sleep apnea 83294148 Active 2014 Rosa domingo, [facility] 6 10:52:46 Anxiety state 514114251 Active 2011 Rosa Francois null, [facility] 6 10:52:46 Depressive disorder 19905582 Active 2011 Rosa domingo, [facility] 6 10:52:46 Problem Notes None recorded. Procedures Surgical History Date Name Laterality Status Provider Name and Address Organization Details Recorded Time 7 Colposcopy Procedure Note completed NIRMAL CARLSON MD [address] [facility], [address] [place] [address], [address], [facility] 01/24/2017 21:39:31 7 Colposcopy completed Rosa Francois [facility] 01/24/2017 13:30:49 7 [id number] completed NIRMAL CARLSON MD 175 [facility], [address] [place] [address], [address], [facility] 01/05/2017 09:51:07 7 [id number] completed NIRMAL CARLSON MD [address], [address], [place], [address], [place] - [facility] 01/05/2017 09:51:19 7 [id number] completed NIRMAL CARLSON MD [address], [place], [address], [facility] - [facility] 01/05/2017 09:50:59 7 [id number]-[id number] completed NIRMAL CARLSON MD [address], [place], [address], [facility] - [facility] 01/05/2017 09:51:13 7 [id number] completed NIRMAL CARLSON MD [address], [address], [place], [address], [facility] - [facility] 01/05/2017 09:50:56 7 [id number] completed NIRMAL CARLSON MD [address], [place], [address], [facility] - [facility] 01/05/2017 09:51:02 7 Date of Last Pap Smear completed Rosa Francois [place] - [facility] 01/23/2017 11:04:27 6 Date of Last Mammogram completed Chichi Bai [place] - [facility] 06/13/2016 12:15:10 6 [id number] completed NIRMAL CARLSON MD [address], [place], [address], [facility] - [facility] 12/21/2015 11:33:41 6 [id number] completed NIRMAL CARLSON MD [address], [place], [address], [facility] - [facility] 12/21/2015 11:33:41 6 [id number] completed NIRMAL CARLSON MD [address], [place], [address], [place] - [facility] 12/21/2015 11:33:41 6 [id number]-[id number] completed NIRMAL CARLSON MD 175 [facility], [address] [facility], [place], [address], [place] - [facility] 12/21/2015 11:33:41 6 [id number] completed NIRMAL CARLSON MD [address] [facility], [address] [facility], [place], [address], [place] - [facility] 12/21/2015 11:33:41 6 [id number] completed NIRMAL CARLSON MD 175 [facility], [address] [place] [address], [place], [address], [place] - [facility] 12/21/2015 11:34:48 1 Cryotherapy of the cervix completed Rosa Francois [place] - [facility] 12/21/2015 11:07:24 Imaging Results Imaging Date Name Status [facility]Modified by [facility] Details LastModified Time 06/13/2016 MAMMO, screening, digital, bilateral completed [address] [facility] [place] [address], [place], [address], 06/18/2016 09:47:55 06/13/2016 ultrasound, breast completed [address] [facility] [address], [place], [address], 08/08/2016 17:48:50 01/08/2017 US, breast, bilateral completed [facility] [place] [address], [place], [address], 01/10/2017 12:22:38 Procedure Notes None recorded. Medical Equipment None Reported. Allergies Allergen ID Allergen Name Allergen Category Reaction Reaction Severity Criticality Documentation Date Start Date Code Code System Note Provider Name and Address Organization Details Recorded Time 270650 No known allergy (situatio n) Not available Not available Not available Not available 02/27/20152012 33064 6003 SNOMED Rosa Francois null, [facility] 6 12:27:00 426562 lidocaine medicatio n hives moderate Not available 01/04/2017 6387 RxNorm Desire Velasquez null, [facility] 7 16:09:49 Medications Name Sig Start Date [...] Available Not Available Not Available Fluarix Quad 3207-3553 (PF) 60 mcg (15 mcg x 4)/0.5 mL IM syringe 01/04 completed Not Available Not Available Not Available Vitals Date Recorded Body height Body mass index (BMI) Body weight Systolic blood pressure Diastolic blood pressure Provider Name and Address Organization Details Last Updated DateTime 12/21/2015 167.005 cm 29.4 kg/m2 40492.21 897 g 110 mm[Hg] 74 mm[Hg] Rosa Francois [facility] 6 11:07:36 Date Recorded Body height Body weight Body mass index (BMI) Systolic blood pressure Diastolic blood pressure Provider Name and Address Organization Details Last Updated DateTime 01/04/2017 167.64 cm 84740.85 g 25.2 kg/m2 128 mm[Hg] 84 mm[Hg] Desire Velasquez [facility] 7 16:23:15 Date Recorded Body height Body weight Body mass index (BMI) Systolic blood pressure Diastolic blood pressure Provider Name and Address Organization Details Last Updated DateTime 01/24/2017 167.64 cm 98929.41 g 25.2 kg/m2 102 mm[Hg] 80 mm[Hg] Rosa Francois [facility] 7 13:43:52 Social History Question Answer Notes LastModified by [employer] Details LastModified Time Tobacco Smoking Status Never Smoker Rosa Francois null, [place] - [facility] 12/21/2015 10:54:57 Is Blood Transfusion Acceptable In [...] Status Question Answer Note LastModified by Organ[employer] Details LastModified Time What is your level [...] SNOMED-CT Code Diagnosis ICD10 Code Diagnosis Note [id number] NIRMAL CARLSON MD [address],[facility] e [address] [place] [address] 7 12/21/2015 10:23:41 12/21/2015 11:52:29 Gynecologic examination 31133063 Z01.411 Z01.419 Contraception care 60815 5005 Z30.40 [id number] NIRMAL CARLSON MD [address],it e [address] [place] [address] 7 01/04/2017 15:46:20 01/04/2017 17:06:21 Gynecologic examination 29078118 Z01.892 [id number] NIRMAL CARLSON MD [address],[facility] e [address] [place] [address] 7 01/24/2017 13:20:17 01/24/2017 14:26:47 Atypical squamous cells of undetermined significance on cervical Papanicolaou smear 476678982 R87.610 Polyp at cervical os 248 096987 N84.1 Health Concerns Section Related Observation LastModified by Organization Detai ls LastModified Time None Recorded Concern Status LastModified by Organization Details LastModified Time None Recorded Advance Directives Directive None Recorded Payers Insurance Date Sequence Insurance Name Policy Number Policy Rasmussen Covered Member ID Rasmussen Member ID Guarantor Name 01/24/2017 1 [place] [facility] [id number] Hetal Monk [id number] Hetal Monk Notes Date Note Type Note Provider Name and Address Organization Details Recorded Time 12/21/2015 text/html [facility] Annual GYNReported bypatient.History:no gynecologic complaints; no change in interval history; . living with a friend in [facility]. Daughter in an apartment. had an issue [...] STD screening offered. NIRMAL CARLSON MD 175 [facility], [address] [place] [address], [address], [facility] 12/22/2015 21:28:34 01/04/2017 text/html [facility] Annual GYNReported bypatient.Menstrual cycle:Normal menses Urinary [...] . he travels alot. NIRMAL CARLSON MD [address] [facility], [address] [place], [address], [facility] 01/05/2017 09:53:07 01/24/2017 text/html [facility] Abnormal Pap SmearReported bypatient.Onset/Matt ng:pap smear performed on: (01/04/17) Quality:pap smear results: (epithelial cell abnormality) Associated Symptoms:no vaginal/vulvar pain; no vulvar lesions/growths; no vaginal discharge; no postcoital bleeding; no dyspareunia NIRMAL MD ALDO [address] [place] [address], [address] Floor, [place], [address], [place] - [facility] 01/24/2017 21:42:19 OBGyn Episode No OBEpisode recorded.
== END 2025-03-24 08:40 | disposition home or self-care (01) ==
LOC: HO.HOSX 08:39
PROVIDERS: Visit Provider Orthopaedic Surgery
DX: M79.641 Pain in right hand (principal); M18.11 Unilateral primary osteoarthritis of first carpometacarpal joint, right hand; M85.841 Other specified disorders of bone density and structure, right hand
CPT/HCPCS: 73130

== ENCOUNTER 2025-03-24 12:45 | Outpatient (AMB) | payer OTHER, SELFPAY ==
--- NOTE | 2025-03-24 13:00 | A.OFFVIS_ITS ---
Intake Visit Reasons: O/V RT MF partial exc nail plate/I&D 11/10/24 AR Intake Note: Hetal 59 year old right hand dominant female presents to the office today for her follow up visit for her right middle finger partial exc nail plate/I&D 11/10/24. Patient reports that she continues to have some hypersensitivity on the radial side of the right middle finger - she explains this as a tingling sensation. She was originally referred to [facility] who then referred her to [facility] . She was seen with Dr. Jaret Rodrigues who was attempting to call AR - with no returned call. Allergies lidocaine Allergy (Intermediate, Verified 03/24/25 13:11) Itching HPI HPI O/V RT MF partial exc nail plate/I&D 11/10/24 AR: Details: Hetal is a 59 year old right hand dominant woman who returns S/P Right middle finger mass excision, down to bone, I&D, & partial removal of germinal matrix of nail bed, and overlying nail plate, DOS: 11/10/24. Pathology was positive for squamous cell carcinoma. She met with [facility] on 02/02/25 and is here for a follow-up appointment. She has also met with her Oncologist in [facility], Sulaiman Olivarez MD, recently and signed a release today to have her previous OP report sent over for review. She has been following for a Hx of breast cancer. She says she is doing well overall. *Please see scanned note & addendum from bullet swaging machine operator Dr. 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 Cognitive needs: No Hearing needs: No Vision needs: Yes Review of Systems Const All systems reviewed & are unremarkable except as noted in HPI and below Physical Exam Const General: no acute distress and alert Orientation/consciousness: patient oriented x3 Neuro General: patient oriented x3 Extrem Other: Evaluation of Upper Extremity: The patient is alert, oriented, and in no acute distress Neuro: Median, Ulnar, Radial nerves motor and sensory intact and sensation is normal to the tips of all digits Sensation is intact to all digits, including the radial aspect of the middle finger She does have some slight tingling in this area. Vascular: Cap refill brisk ROM: She can make a fist and extend all of her digits No locking or catching All wounds are well healed and the nail has grown in well Radiographs: 3 views of the right hand were taken and viewed by me today in clinic. They show the same bony defect on the radial aspect of the tuft of the distal phalanx. Specifically, there is no worsening of the bony defect. Microbiology report from 11/10/24 Routine Culture Final 11/12/24-1033 Organism 1 Strep agalactiae (Grp B) Quantity 3+ Susc N/A Susceptibility not routinely performed on this isolate. Result: 3+ Mixed skin daphne Pathology report from 11/10/24 Diagnosis A. Soft tissue, right middle finger mass, excision: Atypical squamoproliferation , extending to tissue edges. See comment. B. Soft tissue, right middle finger nail bed, excision: Focally squamous-lined fibrovascular and adipose tissue with focal granulation tissue formation; negative for malignancy. Comment (A): The findings in part A are most in keeping with a well- differentiated (verrucoid) squamous cell carcinoma. 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 Right middle finger distal phalanx chronic paronychia, S/P I&D 3. Radial finger nail involvement, S/P partial removal of germinal matrix of nail bed, and overlying nail plate DOS: 11/10/24 I again educated the patient about these conditions including reviewing the pathology results and our discussion with the pathologist. She had a Dermatology appointment on 02/02/25, and I further spoke with Dr. Jaret Rodrigues for a consultation following this appointment to discuss the nature of this cancer and developed an appropriate treatment plan. Per scanned note & addendum from bullet swaging machine operator Dr. Jaret Rodrigues, from 02/02/25, if she did have Squamous cell carcinoma (SCC) that was invasive into deep tissue and abutting bone, the primary risk is with delayed appreciation of recurrence that could result in increased risk for metastasis. It is important to obtain clear margins through a partial amputation of the middle finger. This is consistent with my recollection of this conversation. As this is an invasive squamous cell carcinoma that was found to be abutting bone, and making a deformity of the distal phalanx, clean margins can best be obtained with an amputation of the distal phalanx level. It is important to obtain clean margins because recurrence within the deep tissues rather than more superficially may delay identification of recurrence and risk metastatic disease. Therefore I recommend surgery in the form of a D IP level amputation, and she is in agreement. She would prefer to have surgery under local anesthesia. The risks and benefits of operative treatment were discussed with the patient and the patient wishes to proceed with surgery. These risks include, but are not limited to risk of damage to blood vessels, nerves, tendons, infection, recurrence, incomplete relief of preoperative symptoms, persistent pain, possible need for further surgery and the risks associated with regional blocks and anesthesia. The plan is to take the patient to the operating room sometime on 03/25/25 for the following procedures: 1. Right middle finger distal interphalangeal joint revision amputation, under local All of the preoperative paperwork including the consent was reviewed today. All the patient's questions were answered. The patient understands that they will be contacted by our recruiting scheduler soon to schedule this procedure She denies blood thinners, asthma, heart, lung, kidney issues She is a Diabetic, her most recent HgA1c was 6.0% on 11/03/24. Please note that greater than 45 minutes was spent with this patient going over the history, evaluating the patient and radiographs, formulating possible treatment options, discussing them with the patient, and documenting the visit. Scribed for Cris Guardado MD by Gomez Smith, esthetician and manager medical spa, on 03/24/25 at 1:25 PM, EST. Orders: Orders XR hand RT min 3V Today M79.641 - Pain in right hand Coding Level of Care Code Est Pt Level 5 (66789) Diagnoses Squamous cell carcinoma of skin of finger C44.621
--- OUTSIDE RECORDS SUMMARY | 2025-03-24 13:49 | XMS_ITS | Data Portability ---
Author Organization [place] - [facility], Allergy Address [address] [address] Care Team Providers Care Meat Products Demonstrator Name Role Phone PRAMOD BANERJEE Primary Care Provider [phone] Assessment Encounter Date Assessment Date Assessment LastModified by Organization Details LastModified Time 11/25/2024 11/25/2024 Both ears are demonstrating canal wall down mastoidectomy cavities, both of which were cleaned and debrided today under the binocular microscope. Both tympanic membranes are atelectatic with absent ossicular chains. There is a defect in the right inferior margin of the tympanic membrane with some mucosal exposure, currently mildly infected. Recommend 5 days of topical Ciprodex drops to be used twice a day. Specific instructions on proper application provided. Today we discussed the fact that these canal wall down cavities will require preventative maintenance to prevent future debris impaction and otorrhea. Recommend follow-up in 1 year. [email or web address] Not available 11/25/2024 10:34:52 Plan of Treatment Reminders Order Date Submit Date Provider Last Modified By Organization Details Last Modified Time Details Appointments None recorded. Lab None recorded. Referral None recorded. Procedures None recorded. Surgeries None recorded. Imaging None recorded. Medication Orders ciprofloxac in 0.3 %-dexametha sone 0.1 % ear drops,suspe nsion 2024 025 [id number], [address] [facility], [place], [address], 10:27:31 Patient TargetsNo targets recorded. Patient InstructionsNo instructions recorded. Reason for Referral None Reported. Results Created Date Observation Date Name Description Value Unit Range Abnormal Flag Note LastModifiedBy Organization Detail LastModifiedTime 11/25/1905/20/2024 audio gram No observ ation record ed. [email or web address] Not Available 11/06 10:49:08 11/25/19 audio gram No observ ation record ed. BARCODE Not Available 2024 14:57:36 Result Notes None recorded. Problems Name Problem SNOMED Code Status Onset Date Resolution Date Notes Provider Name and Address Organization Details Recorded Time Mixed conductive and sensorineur al hearing loss, bilateral 967320627 Active 2024 Karen domingo [place] - [facility] 09:50:19 Postmastoid ectomy complicatio n 77486699 Active 2024 BRAYAN ARITA MD [address] [place] [address], [place], [address], [facility] - [facility] 5 10:26:00 Otorrhea of right ear 8293132873852 106 Active 2024 BRAYAN ARITA MD [address] [place] [address], [place], [address], [facility] - [facility] 10:26:56 Ossicles absent 149857270 Active 2024 BRAYAN ARITA MD [address] [place] [address], [phone], [facility] - [facility] 5 10:29:10 Marginal perforation of right tympanic membrane 2536606332504 109 Active 2024 BRAYAN ARITA MD [address] [place] [address], [phone], [facility] - [facility] 5 10:29:31 Problem Notes None recorded. Procedures Surgical History Date Name Laterality Status Provider Name and Address Organization Details Recorded Time Comp Audio with Tymps - 33502 & 08183 completed Karen Lund [place] - [facility] 11/25/2024 09:50:10 Debridement of Mastoid Cavity bilat completed BRAYAN ARITA MD [address] [place] [address], [phone], [place] - [facility] 11/25/2024 10:23:23 Imaging Results Imaging Date Name Status LastModified by [facility] Details LastModified Time 05/20/2024 audiogram completed [email or web address] Information n ot available 11/25/2024 10:49:08 11/25/2024 audiogram completed BARCODE Information no t available 11/25/2024 14:57:36 Procedure Notes None recorded. Medical Equipment None Reported. Allergies Allergen ID Allergen Name Allergen Category Reaction Reaction Severity Criticality Documentation Date Start Date Code Code System Note Provider Name and Address Organization Details Recorded Time 062795 lidocaine medicatio n hives moderate Not available 11/25/2024 6387 RxNorm Maile domingo [facility] 5 09:55:44 145587 thimerosa l medicatio n hives severe Not available 11/25/2024 06608 RxNorm Maile domingo [facility] 5 09:55:44 193209 cat dander environme nt other mild Not available 11/25/2024 68992 UNK Maile domingo [facility] 5 09:55:44 233003 mold extract environme nt headache moderate Not available 11/25/2024 97645 8 RxNorm Maile domingo [facility] 5 09:55:44 Medications Name Sig Start Date Stop Date Status Note LastModified by Organization Details LastModified Time anastrozole 1 mg tablet TAKE 1 TABLET BY MOUTH 1 TIME EACH DAY. active Not Available Not Available No t Available fluconazole 150 mg tablet 1 TAB ORALLY EVERY 3 DAYS FOR 2 DOSES MAY REPEAT 2ND DOSE 72 HRS AFTER 1ST DOSE IF SYMPTOMS PERSIST 11/25 completed Not Available Not Available Not Available dextroamphe tamine-amph etamine 10 mg tablet 10 mg twice a day by oral route. active Not Available Not Available No t Available calcium 600 mg tablet 600 mg twice a day by oral route. active Not Available Not Available No t Available Zyrtec 10 mg tablet active Not Available Not Available No t Available oxycodone-a cetaminophe n 5 mg-325 mg tablet TAKE 1 TAB ORALLY EVERY 6 HOURS NEEDED FOR PAIN active Not Available Not Available No t Available lorazepam 0.5 mg tablet TAKE 1 TABLET BY MOUTH 2 TIMES A DAY NEEDED FOR ANXIETY FOR 30 DAYS active Not Available Not Available No t Available cephalexin 500 mg capsule TAKE 1 CAPSULE BY MOUTH THREE TIMES A DAY FOR 7 DAYS 11/25 completed Not Available Not Available Not Available erythromyci n 5 mg/gram (0.5 %) eye ointment PLACE 1 STRIP INTO EFFECTED EYE(S) 3 TIMES PER DAY FOR 5 DAYS 11/25 completed Not Available Not Available Not Available fluoxetine 20 mg tablet TAKE 1/2 TAB ORAL DAILY FOR 2 WEEKS THEN INCREASE TO 1 TAB ORAL DAILY active Not Available Not Available No t Available hyoscyamine 0.125 mg sublingual tablet TAKE 1 TABLET BY MOUTH 2 TO 4 TIMES A DAY NEEDED FOR DYSPEPSIA active Not Available Not Available No t Available betamethaso ne dipropionat e 0.05 % topical ointment APPLY 1 APPLICATI ON TOPICALLY 2 TIMES A DAY NEEDED FOR SKIN IRRITATIO N 11/25 completed Not Available Not Available Not Available Prozac 10 mg tablet 20 mg every day by oral route. 2023 active Not Available Not Available Not Avai lable fluticasone propionate 50 mcg/actuati on nasal spray,suspe nsion 2 sprays every day by nasal route. active Not Available Not Available No t Available amoxicillin 875 mg-potassiu m clavulanate 125 mg tablet TAKE 1 TABLET BY MOUTH TWICE A DAY 11/25 completed Not Available Not Available Not Available ciprofloxac in 0.3 %-dexametha sone 0.1 % ear drops,suspe nsion INSTILL 4 DROPS TWICE A DAY BY OTIC ROUTE FOR 5 DAYS. active Not Available Not Available No t Available Vitamin D3 50 mcg (2,000 unit) tablet 50 microgram s twice a day by oral route. active Not Available Not Available No t Available azelastine 205.5 mcg (0.15 %) nasal spray 2 sprays every day by nasal route. active Not Available Not Available No t Available omeprazole 20 mg delayed release,dis integrating tablet 20 mg every day by oral route. active Not Available Not Available No t Available Sodium Fluoride 5000 Dry Mouth 1.1 % dental paste BRUSH TWICE A DAY DO NOT RINSE/DRI NK/EAT FOR 30MIN AFTER active Not Available Not Available No t Available Vitals Date Recorded Body height Body weight Provider Name and Address Organization Details Last Updated DateTime 11/25/2024 167.64 cm 12747.7 g Maile Lyon [place] - [facility] 11/25/2024 09:55:36 Social History None recorded. Functional Status None recorded. Mental Status None recorded. Family History Relationship Description Onset Age of this Age Resolved Age Notes LastModified by Organization Details LastModified Time Mother Allergy [email or web address] Not availa ble 11/25/2024 09:55:48 Mother Disorder of thyroid gland Not available 09:55:48 Medical History Condition Response Allergies/Hayfever Y Heart Problems N Anxiety Y Tonsil Infections N Emphysema N Migraines Y Thyroid Problems N Glaucoma N Depression Y COPD N Developmental Delay N Nasal or Sinus Problems Y Anemia N Immune System Disorder N Anesthesia Complications Y Heart Attack (NM) N Other Skin Condition Y Diabetes N Rhinitis Y Bleeding Disorder N Food Allergy N Arthritis Y Hearing Loss Y Hyperlipidemia N Cancer Y Stroke N Dementia N Nasal polyps N Asthma N Sleep Disorder Y GERD/Reflux Y High Cholesterol Y Liver Disease N Headaches Y Fibromyalgia N Hypertension N Speech Delay N Kidney Disease N Gynecological HistoryNo gynecological history recorded. Obstetrics History GPAL:G 0 P 0 0 0 0 Past Encounters Encounter ID Performer Location Encounter Start Date Encounter Closed Date Diagnosis/Indication Diagnosis SNOMED-CT Code Diagnosis ICD10 Code Diagnosis Note [id number] BRAYAN ARITA MD [facility] [address] [address] 11/25/2024 08:45:42 11/25/2024 10:36:01 Mixed conductive and sensorineural hearing loss, bilateral 100457470 H90.6 Audiologic al evaluation results:Ri ght ear:{{Norm al Normal through 2 kHz Mild M oderate* M oderately- severe Sev ere Profou nd}} {{hearing hearing. s loping to a mild slopi ng to a moderate s loping to moderately severe slo ping to severe* sl oping to profound f lat high frequency low frequency mid frequency cookie bite adams curve}} {{with sen sorineural hearing loss with condu ctive hearing loss with mixed hearing loss with*}} {{excellen t* good fa ir poor no measurable }} word recognitio n.Left ear:{{Norm al Normal through 2 kHz Mild M oderate Mo derately-s evere Camille re Profoun d Severe through 3kHz#}} {{hearing hearing. s loping to a mild slopi ng to a moderate s loping to moderately severe slo ping to severe slo ping to profound f lat high frequency low frequency mid frequency cookie bite adams curve rais ing to a mild#}} {{with sen sorineural hearing loss with condu ctive hearing loss with mixed hearing loss with*}} {{excellen t* good fa ir poor no measurable }} word recognitio n. Tympanomet ry:Right Ear:{{Type A Type As Type Ad Type C Type C, shallow & rounded Ty pe B Type B with large volume* Co uld not maintain a hermetic seal}}Left Ear:{{Type A Type As Type Ad Type C Type C, shallow & rounded Ty pe B Type B with large volume* Co uld not maintain a hermetic seal}}Christopher ometric testing reviewed with the patient. She has a rather significan t degree of mixed hearing loss bilaterall y, but fortunatel y she has excellent speech discrimina tion. Her best option is to continue with convention al amplificat ion and have given her a copy of her audiogram and medical clearance to return to her audiologis t to continue with hearing aid suraj e. Postmastoi dectomy complication 29756545 H95.193 Otorrhea of right ear 10 [id number] 227043 H92.11 Ossicles absent 74788805 9 H74.393 Marginal p erforation of right tympanic membrane [id number] 098328 H72.2X1 Health Concerns Section Related Observation LastModified by Organization Detai ls LastModified Time None Recorded Concern Status LastModified by Organization Details LastModified Time None Recorded Advance Directives Directive None Recorded Payers Insurance Date Sequence Insurance Name Policy Number Policy Rasmussen Covered Member ID Rasmussen Member ID Guarantor Name 11/25/2024 1 [place] [place] ([facility] [place]) [id number] 1 Hetal Monk [id number] Hetal Monk Notes Date Note Type Note Provider Name and Address Organization Details Recorded Time 11/25/2024 text/html 59-year-old fema le with long otologic history. 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 She had multiple additional procedures up until she was in college. Most of her procedures were done down in [place]. She has bilateral canal wall down mastoidectomy cavities. Currently using binaural amplification dispensed through [employer] in [place]. She is doing well with this technology overall. She has occasional discharge from the right ear. BRAYAN ARITA MD [address] [place] [address], [place], [address], [facility] - [facility] 11/25/2024 10:36:04 OBGyn Episode No OBEpisode recorded.
--- OUTSIDE RECORDS SUMMARY | 2025-03-24 13:50 | XMS_ITS | Clinical Summary ---
Author Organization [facility] Address [address] [place] [address] Care Team Providers Care Transit Proof Machine Operator Name Role Phone Jacqueline Pereira MD Primary Care Provider [phone] Allergies Active Allergy Reactions Criticality Noted Date Comments Adhesive Tape-Silicones 10/10/2021 Lidocaine Rash Low 09/07/2017 Lidocaine Hcl 11/07/2017 Thimerosal Rash Low 10/14/2021 Medications amphetamine-dex troamphetamine (ADDERALL) 10 mg tablet TAKE 1 TABLET BY MOUTH 2 TIMES A DAY 08/31/20 22 Active cetirizine (ZyrTEC) 10 mg capsule Zyrtec 10 mg capsule Active fluticasone propionate (FLONASE) 50 mcg/actuation nasal spray spray/apply 1 spray in each nostril daily. Active omeprazole OTC (PriLOSEC OTC) 20 mg EC tablet Prilosec OTC 20 mg tablet,delay ed release TAKE 1 TABLET BY ORAL ROUTE PRN 12/11/19 15 Active calcium carbonate-vitam in D3 500 mg-15 mcg (600 unit) tablet Take 600 mg by mouth 2 times daily (with meals). Active multivit-min/ir on/folic acid/K (ADULTS MULTIVITAMIN ORAL) TAKE 1 CAPSULE BY ORAL ROUTE EVERY DAY 12/11/19 15 Active LORazepam (ATIVAN) 0.5 mg tablet 07/23/20 24 Active FLUoxetine (PROzac) 20 mg tablet TAKE 1/2 TAB ORAL DAILY FOR 2 WEEKS THEN INCREASE TO 1 TAB ORAL DAILY 06/18/20 24 Active venlafaxine XR (EFFEXOR-XR) 75 mg 24 hr capsule Take 1 capsule (75 mg total) by mouth 1 (one) time each day. Do not crush or chew. 30 capsule 5 03/18/20 25 026 Active anastrozole (ARIMIDEX) 1 mg Take 1 tablet (1 mg total) by mouth 1 (one) time each day 90 tablet 1 03/18/20 25 Active azelastine (ASTELIN) 137 mcg (0.1 %) nasal spray spray or apply 1 spray inside Nose 2 (two) times a day. Use in each nostril as directed 025 Discontinued triamcinolone (KENALOG) 0.1 % cream Apply topically. PRN triamcinolon e acetonide 0.1 % topical cream 025 Discontinued guaiFENesin (MUCINEX) 600 mg 12 hr tablet Take by mouth. Take 1,200 mg by mouth 2 times daily. 025 Discontinued fluticasone propionate (CUTIVATE) 0.05 % cream Apply topically. Apply topically 2 times daily. 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 03/18 Seasonal allergic rhinitis 08/05/2024 SAMMI (obstructive sleep apnea) 08/05/2024 GERD (gastroesophageal reflux disease) Depression 08/05/2024 Psoriasis 08/05/2024 Migraine 08/05/2024 Dysplasia of cervix, high grade PETRA 2 08/05/2024 Breast cancer ([facility] V24, [facility] V28) 024 Malignant neoplasm of upper- outer quadrant of right breast in female, estrogen receptor positive ([facility] V24, [facility] V28) 12/27/2023 Left adrenal mass ([facility] V24) 08/22/2022 Hx of appendectomy 08/21/2022 Encounters Date Type Department Care Team Description 03/18/2025 3:45 PM EDT Office Visit [facility] Hematology Oncology [address] [place] [phone] Sulaiman Olivarez MD Malignant neoplasm of upper-outer quadrant of right breast in female, estrogen receptor positive ([facility] V24, [facility] V28) (Primary Dx); Reactive depression; Squamous cell cancer of skin of right hand from Last 3 Months Immunizations Name Administration Dates Next Due Influenza trivalent, with pr eservative (Fluzone; Afluria) 6mo and older 09/07/2017 Tdap Tetanus diptheria acell ular pertussis (Boostrix; Adacel) 7yo and older 09/07/2017,09/11/2011 Surgical History Surgery Date Site/Laterality Comments BREAST BIOPSY Left PROCEDURE:BREAST BIOPSY;COMMENT:1999 OTHER SURGICAL HISTORY PROCEDURE:MASTOIDECTOMY HERNIA REPAIR PROCEDURE:HERNIA REPAIR APPENDECTOMY PROCEDURE:APPENDECTOMY OTHER SURGICAL HISTORY PROCEDURE: HISTORICAL MASTOIDECTOMY BREAST SURGERY 2020 Right PROCEDURE: NC UNLISTED PROCEDURE BREAST; COMMENT: ca BREAST BIOPSY Left PROCEDURE: BX BREAST; PERC NEEDLE CORE W/IMAG GUID; COMMENT: b9 APPENDECTOMY 08/05/2022 PROCEDURE: HISTORICAL APPENDECTOMY Medical History Medical History Date Comments Dysplasia of cervix DX:Dysplasia of cervix Obstructive sleep apnea DX:Obstr uctive sleep apnea GERD (gastroesophageal reflux disease) DX:GERD (gastroesophageal reflux disease) Depression DX:Depression Psoriasis DX:Psoriasis Migraine DX:Migraine Hearing loss DX:Hearing loss SAMMI (obstructive sleep apnea) 11/07/2017 DX :SAMMI (obstructive sleep apnea) GERD (gastroesophageal reflux disease) 11/07/2017 DX:GERD (gastroesophageal reflux disease) Depression 11/07/2017 DX:Depression Psoriasis 11/07/2017 DX:Psoriasis History of iritis 11/07/2017 DX:History of iritis Migraine 11/07/2017 DX:Migraine Breast cancer ([facility] V24, [facility] V28) 2020 DX:Breast cancer ([facility]) Family History Medical History Relation Name Comments Alcohol abuse Brother guillain barre syndrome Depression Daughter borderline pers onality disorder Diabetes Father Hypertension Father diabetes, lc sterol, macular degeneration Cancer Maternal Grandmother Pancreatic cancer Maternal Grandmother Thyroid disease Maternal Grandmother Hyperthyroidism Mother uterine canc er Thyroid disease Mother Breast cancer Neg Hx Colon cancer Neg Hx Ovarian cancer Neg Hx Relation Name Status Comments Brother Daughter Father Maternal Grandmother Mother Social History Tobacco Use Types Packs/Day Years Used Date Smoking Tobacco: Former Cigarettes Smokeless Tobacco: Never Alcohol Use Standard Drinks/Week Comments Yes 2 (1 standard drink = 0.6 oz pur e alcohol) Housing Instability Answer Date Recorde d Are you worried that in the next 2 months you may not have stable housing? No 09/07/2024 Food Access & Nutrition Answer Date Rec orded Do you have access to a vari ety of food including fruits and vegetables? Yes 09/07/2024 Access to Healthcare Answer Date Record ed Within the last 3 months, ho w many times did you visit the emergency department for your medical care? 1 09/07/2024 Health Literacy Answer Date Recorded How often do you need to hav e someone help you when you read instructions, pamphlets, or other written material from your doctor or pharmacy? Never 09/07/2024 Caregiver: How often do you need to have someone help you when you read instructions, pamphlets, or other written material from your doctor or pharmacy? Not on file 09/07/2024 Financial Risk Answer Date Recorded How hard is it for you to pa y for the very basics like food, housing, medical care, and air conditioning / heating? Not very hard 09/07/2024 Transportation Answer Date Recorded Has the lack of transportati on kept you from meetings, work, or from getting things needed for daily living? No Has the lack of transportati on kept you from medical appointments or from getting medications? No 09/07/2024 Social Isolation Answer Date Recorded How often do you feel lonely or isolated from those around you? Sometimes 09/07/2024 Food Risk Answer Date Recorded Within the past 12 months we worried whether our food would run out before we got money to buy more. Never true 09/07/2024 Within the past 12 months th e food we bought just didn't last and we didn't have money to get more. Never true 09/07/2024 Dependent Care Answer Date Recorded Do you need help finding or paying for care for your loved ones. For example, child development instructor or elderly care for an older adult? Yes 09/07/2024 Education Answer Date Recorded Do you think completing more education or training, like finishing a GED, going to college, or learning a trade, would be helpful for you? No 09/07/2024 Employment and Income Answer Date Recor ded During the last four weeks, have you been actively looking for work? No 09/07/2024 Living Situation Answer Date Recorded What is your living situation? 1 11/07/2023 Comments No Sex and Gender Information Value Date Recorded Sex Assigned at Female 10/21/2021 4:14 PM EST Legal Sex Female 1:12 PM EDT Gender Identity Female 10/21/2021 4:14 PM EST Sexual Orientation Straight 10/21/2021 4: 14 PM EST Obstetrics History Para Term AB IAB SAB Ectopic Multiple Livin g Live Births 3 1 1 2 1 1 1 1 Date Outcome GA Total Labor Labor/2nd/3rd Weight Sex Type Anes PTL Olga A1 A5 Name Clin Term Living SAB IAB Last Filed Vital Signs Vital Sign Reading Time Taken Comments Blood Pressure 134/84 03/18/2025 3:50 PM EDT Pulse 76 03/18/2025 3:50 PM EDT Temperature 36.2 ??C (97.2 ??F) 03/18/2025 3:50 PM ED T Respiratory Rate - - Oxygen Saturation 97% 03/18/2025 3:50 PM EDT Inhaled Oxygen Concentration - - Weight 82.1 kg (181 lb) 03/18/2025 3:50 PM EDT Height 167.6 cm (5' 6 ) 03/18/2025 3:50 PM EDT Body Mass Index 29.21 03/18/2025 3:50 PM EDT Plan of Treatment Upcoming Encounters Date Type Department Care Team (Late st Contact Info) Description 04/14/2025 8:00 AM EDT [facility] [address] [place] [phone] Charline Huggins MD [address] [place] [address] 08/18/2025 4:30 PM EDT Appointment Radiology Department - [place] [address] [place] [address] 10/07/2025 3:45 PM EST Office Visit [facility] Hematology Oncology [address] [place] [address] Sulaiman Olivarez MD [address] [place] [address] Health Maintenance Due Date Last Done Comments Hepatitis B Vaccines (1 of 3 - 19+ 3-dose series) 1984 Pneumococcal Vaccine: 50+ Years (1 of 2 - PCV) 1984 Pneumococcal Vaccine: Pediatrics (0 to 5 Years) and At-Risk Patients (6 to 64 Years) (1 of 2 - PCV) 1984 Zoster Vaccines (1 of 2) 1984 Cholesterol Screening (Lipid Panel) 01/29/2021 Depression Screening 01/29/2021 HIV Screening 01/29/2021 COVID-19 Vaccine (6 - Mixed Product risk season) 2025 08/29/2024, 09/22/2022, 11/20/2021, Additional history exists Social Influencers of Health Screening 09/07/2025 09/07/2024 Breast Cancer Screening 08/05/2026 08/05/20 24, 08/05/2024, 08/01/2023, Additional history exists DTaP,Tdap,and Td Vaccines (3 - Td or Tdap) 09/07/2027 09/07/2017, 09/11/2011 Cervical Cancer Screening: HPV 10/02/2028 10/02/2023 Colorectal Cancer Screening: Colonoscopy 10/19/2031 10/19/2021 RSV Immunization Adult Patients (1 - 1-dose 75+ series) 2040 Hepatitis C Screening Completed 09/07/2017 Influenza Vaccine Completed 08/29/2024, , 09/22/2022, Additional history exists HIB Vaccines Aged Out No longer eligi ble based on patient's age to complete this topic HPV Vaccines Aged Out No longer eligi ble based on patient's age to complete this topic Hepatitis A Vaccines Aged Out No long er eligible based on patient's age to complete this topic IPV Vaccines Aged Out No longer eligi ble based on patient's age to complete this topic MMR Vaccines Aged Out No longer eligi ble based on patient's age to complete this topic Meningococcal ACWY Vaccine Aged Out N o longer eligible based on patient's age to complete this topic Meningococcal B Vaccine Aged Out No l onger eligible based on patient's age to complete this topic RSV Immunization Patients Under 20 months Aged Out No longer eligible based on patient's age to complete this topic Varicella Vaccines Aged Out No longer eligible based on patient's age to complete this topic Procedures Procedure Name Priority Date/Time Associated Diagnosis Comments SCREENING MAMMOGRAPHY BI 2-VIEW BREAST INC CAD Routine 08/05/2024 4:33 PM EDT Encounter for screening mammogram for malignant neoplasm of breast HPV Routine 10/02/2023 COLONOSCOPY Routine 10/19/2021 HEPATITIS C SCREENING Routine 09/07/2017 from Last 3 Months or Most Recently Relevant to Health Maintenance Results * SCREENING MAMMOGRAPHY BI 2-VIEW BREAST INC CAD (08/05/2024 4:33 PM EDT) Anatomical Region Laterality Modality Radiographic Lorna ging 08/01/2023 3:38 PM EDT Narrative 08/06/2024 2:51 PM EDT This is a summary report. The complete report is available in the patient's medical record. If you cannot access the medical record, please contact the sending organization for a detailed fax or copy. Full field digital screening tomosynthesis mammography, reviewed with CAD and compared to previous. The breast tissue is heterogeneously dense, limiting sensitivity. ??There are stable postlumpectomy/radiation changes in the right upper outer breast. ??No suspicious mass, architectural distortion or suspicious calcifications are identified. IMPRESSION: : Dense breast tissue, limiting the sensitivity of mammography. No mammographic evidence of malignancy. BIRADS 1-Negative; N. Breast density: The breasts are heterogeneously dense, which may obscure small masses. 5 year breast cancer risk assessment N/A Lifetime breast cancer risk assessment N/A Breast cancer risk category Low (<15%) Location: [facility], [address] [place] [address], [place], [address], [phone] Procedure Note Irma Sr MD - 09/02/2024 This is a summary report. The complete report is available in thepatient's medical record. If you cannot access the medical record, pleasecontact the sending organization for a detailed fax or copy. Full field digital screening tomosynthesis mammography, reviewed with CADand compared to previous. The breast tissue is heterogeneously dense,limiting sensitivity. There are stable postlumpectomy/radiation changesin the right upper outer breast. No suspicious mass, architecturaldistortion or suspicious calcifications are identified. IMPRESSION: : Dense breast tissue, limiting the sensitivity of mammography. Nomammographic evidence of malignancy. BIRADS 1-Negative; N. Breast density: The breasts are heterogeneously dense, which may obscuresmall masses. 5 year breast cancer risk assessment N/A Lifetime breast cancer risk assessment N/A Breast cancer risk category Low (<15%) Location: [facility], [address] [place] [address], [id number], [phone] Sonia Torres MD IMG XR PROCEDURES Final Result * Cervical Cancer Screening: HPV (10/02/2023) [facility] Cervical Cancer Screening: HPV negative, abstracted Historical Provider HEALTH MAINTENANCE Final Result * Colonoscopy (10/19/2021) [facility] Colonoscopy no interpretation , abstracted Anatomical Region Laterality Modality Other Historical Provider HEALTH MAINTENANCE Final Result * Hepatitis C Screening (09/07/2017) [facility] Hepatitis C Screening abstracted Historical Provider HEALTH MAINTENANCE Final Result from Last 3 Months or Most Recently Relevant to Health Maintenance Insurance [facility] Care Teams Transit Proof Machine Operator Relationship Specialty Start Date End Date Jacqueline Pereira MD [address] [place] [id number] PCP - General Internal Medicine 08/15/22
--- OUTSIDE RECORDS SUMMARY | 2025-03-24 13:50 | XMS_ITS | Encounter Summary ---
Author Organization [facility] Address [address] [place] [address] Care Team Providers Care Central Supply Manager Name Role Phone Gladis Haney MD Primary Care Provider [phone] Gladis Haney MD Primary Care Provider [phone] Pcp, No Primary Care Provider Unavailabl e Encounter Details Date Type Department Care Team (Late st Contact Info) Description 06/08/2015 Scanned Document [address] [place] [phone] Provider, Generic Social History Tobacco Use Types Packs/Day Years Used Date Smoking Tobacco: Never Assessed Comments Unknown Sex and Gender Information Value Date Recorded Sex Assigned at Not on file Legal Sex Female 2:42 PM EDT Gender Identity Not on file Sexual Orientation Not on file documented as of this encounter Plan of Treatment Not on file documented as of this encounter Visit Diagnoses Not on filedocumented in this encounter Care Teams Central Supply Manager Relationship Specialty Start Date End Date Gladis Haney MD [address] [facility] [address] [place] [address] PCP - General Internal Medicine 08/06/15 01/22/23 Gladis Haney MD [address] [place] [address] PCP - General 08/05/15 Pcp, No PCP - General General Medicine 01/23/23 documented as of this encounter
--- OUTSIDE RECORDS SUMMARY | 2025-03-24 13:50 | XMS_ITS | Data Portability ---
Author Organization [place] - [facility]'s [facility], [facility] Address [address] [place] [address] Care Team Providers Care Psych Np Name Role Phone SIRIA CHINO Primary Care Provider SIRIA CHINO Referring Provider [phone] NIRMAL CARLSON Sales Operations Manager Unavailable SIRIA CHINO Primary Care Provider Assessment No assessment recorded. Plan of Treatment Reminders Order Date Submit Date Provider Last Modified By Organization Details Last Modified Time Details Appointments None recorded. Lab test, urine 2016 017 In-Office Order, Internal Use Only DO Not Attach Compendium DO Not Attach Compendium, Do Not Delete/merge, [id number] 7 14:21:03 surgical pathology study - ascus, HPV+. ECC done 2016 017 [facility], [address] [place], [address] 7 15:35:52 surgical pathology study 2016 017 [email or web address] [facility], [address] [place], [address] 7 10:49:00 surgical pathology study - ascus, HPV+ pap. 2016 017 [email or web address] [facility], [address] [place], [address] 7 10:49:00 pap, IG + CT/NG + HR HPV + reflex HPV (16+18) 2016 017 [facility], [address] [place], [address] 7 08:35:34 urinalysis , dipstick 2016 017 In-Office Order, Internal Use Only DO Not Attach Compendium DO Not Attach Compendium, Do Not Delete/merge, [id number] 7 17:01:45 fecal occult blood, stool 2016 017 In-Office Order, Internal Use Only DO Not Attach Compendium DO Not Attach Compendium, Do Not Delete/merge, [id number] 7 17:01:45 urinalysis , dipstick 2015 016 In-Office Order, Internal Use Only DO Not Attach Compendium DO Not Attach Compendium, Do Not Delete/merge, [id number] 6 21:28:21 fecal occult blood, stool 2015 016 In-Office Order, Internal Use Only DO Not Attach Compendium DO Not Attach Compendium, Do Not Delete/merge, [id number] 6 21:28:22 Referral None recorded. Procedures None recorded. Surgeries None recorded. Imaging MAMMO, screening, digital, bilateral, w/ CAD 2016 017 [facility] [place], [address], [place], [address], 7 08:35:54 US, breast, bilateral 2016 017 [facility] - [place], [address], [place], [address], 7 09:04:09 MAMMO, screening, digital, bilateral - Please Reflex to breast ultrasound if mammogram shows dense breasts 2015 016 [facility], [address], [place], [address], 6 11:35:16 ultrasound , breast - left diagnostic u/s follow up. 2015 016 [email or web address] [facility], [address] [facility], [place], [address], 6 08:04:45 Medication Orders Minastrin 24 Fe 1 mg-20 mcg (24)/75 mg (4) chewable tablet 2015 016 Not available 7 13:39:13 Minastrin 24 Fe 1 mg-20 mcg (24)/75 mg (4) chewable tablet 2015 016 Not available 7 13:39:13 Patient TargetsNo targets recorded. Patient Instructions Encounter Date Encounter Id Patient Instructions Last Modified By Organization Details Last Modified Time 12/21/2015 [id number] Patient presents for a well woman exam. [...] been told to schedule a well woman Manager Chemistry exam in one year and to call us with any question or concerns regarding her health and welfare. Heme + stool. recommend colonoscopy. ??A heart healthy diet and exercise were recommended.?? Not available 12/22/2015 21:28:22 01/04/2017 [id number] Patient presents for a well woman exam. [...] been told to schedule a well woman Manager Chemistry exam in one year and to call us with any question or concerns regarding her health and welfare. Not available 01/05/2017 09:52:38 01/24/2017 [id number] abnormal Pap saeed t: care instructions [email or web address] [...] Abnormal Flag Note LastModifiedBy Organization Detail LastModifiedTime 01/25/2001/24/2017 pregn magdalene test, urine Result negati ve Not Available In-Office Order Internal Use Only DO Not Attach Compendium DO Not Attach Compendium, Do Not Delete/merge, [id number] 01/24/2017 13:31:37 01/05/20 17 01/04/2017 fecal occul t blood , stool Occult Blood negati ve Not Available In-Office Order Internal Use Only DO Not Attach Compendium DO Not Attach Compendium, Do Not Delete/merge, [id number] 01/04/2017 17:01:21 01/05/2001/04/2017 urina lysis , dipst ick Interpretati on negati ve Not Available In-Office Order Internal Use Only DO Not Attach Compendium DO Not Attach Compendium, Do Not Delete/merge, [id number] 01/04/2017 16:18:34 01/05/20 17 01/04/2017 urina lysis , dipst ick Leukocytes Negati ve Not Available In-Office Order Internal Use Only DO Not Attach Compendium DO Not Attach Compendium, Do Not Delete/merge, [id number] 01/04/2017 16:18:34 01/05/20 17 01/04/2017 urina lysis , dipst ick Nitrite negati ve Not Available In-Office Order Internal Use Only DO Not Attach Compendium DO Not Attach Compendium, Do Not Delete/merge, 01/04/2017 16:18:34 01/05/20 17 01/04/2017 urina lysis , dipst ick Urobilinogen Normal : 0.2 mg/dl Not Available In-Office Order Internal Use Only DO Not Attach Compendium DO Not Attach Compendium, Do Not Delete/merge, 01/04/2017 16:18:34 01/05/20 17 01/04/2017 urina lysis , dipst ick Protein Negati ve Not Available In-Office Order Internal Use Only DO Not Attach Compendium DO Not Attach Compendium, Do Not Delete/merge, 01/04/2017 16:18:34 01/05/20 17 01/04/2017 urina lysis , dipst ick pH 6.0 Not Available In-Office Order Internal Use Only DO Not Attach Compendium DO Not Attach Compendium, Do Not Delete/merge, 01/04/2017 16:18:34 01/05/20 17 01/04/2017 urina lysis , dipst ick Blood Negati ve Not Available In-Office Order Internal Use Only DO Not Attach Compendium DO Not Attach Compendium, Do Not Delete/merge, 01/04/2017 16:18:34 01/05/20 17 01/04/2017 urina lysis , dipst ick Specific [place] 1.010 Not Available In-Off ice Order Internal Use Only DO Not Attach Compendium DO Not Attach Compendium, Do Not Delete/merge, 01/04/2017 16:18:34 01/05/20 17 01/04/2017 urina lysis , dipst ick Ketone Negati ve Not Available In-Office Order Internal Use Only DO Not Attach Compendium DO Not Attach Compendium, Do Not Delete/merge, 01/04/2017 16:18:34 01/05/20 17 01/04/2017 urina lysis , dipst ick Bilirubin Negati ve Not Available In-Office Order Internal Use Only DO Not Attach Compendium DO Not Attach Compendium, Do Not Delete/merge, [id number] 01/04/2017 16:18:34 01/05/20 17 01/04/2017 urina lysis , dipst ick Glucose Negati ve Not Available In-Office Order Internal Use Only DO Not Attach Compendium DO Not Attach Compendium, Do Not Delete/merge, 01/04/2017 16:18:34 01/05/20 17 01/04/2017 urina lysis , dipst ick Appearance Clear Not Available In-Offi ce Order Internal Use Only DO Not Attach Compendium DO Not Attach Compendium, Do Not Delete/merge, 01/04/2017 16:18:34 01/05/20 17 01/04/2017 urina lysis , dipst ick Color Yellow Not Available In-Office Order Internal Use Only DO Not Attach Compendium DO Not Attach Compendium, Do Not Delete/merge, 01/04/2017 16:18:34 12/21/19 16 12/21/2015 fecal occul t blood , stool Occult Blood positi ve Not Available In-Office Order Internal Use Only DO Not Attach Compendium DO Not Attach Compendium, Do Not Delete/merge, 12/21/2015 17:13:56 12/21/19 16 12/21/2015 urina lysis , dipst ick Leukocytes Negati ve Not Available In-Office Order Internal Use Only DO Not Attach Compendium DO Not Attach Compendium, Do Not Delete/merge, 12/21/2015 10:52:46 12/21/19 16 12/21/2015 urina lysis , dipst ick Nitrite negati ve Not Available In-Office Order Internal Use Only DO Not Attach Compendium DO Not Attach Compendium, Do Not Delete/merge, 12/21/2015 10:52:46 12/21/19 16 12/21/2015 urina lysis , dipst ick Protein Negati ve Not Available In-Office Order Internal Use Only DO Not Attach Compendium DO Not Attach Compendium, Do Not Delete/merge, 12/21/2015 10:52:46 12/21/19 16 12/21/2015 urina lysis , dipst ick Blood Negati ve Not Available In-Office Order Internal Use Only DO Not Attach Compendium DO Not Attach Compendium, Do Not Delete/merge, 12/21/2015 10:52:46 12/21/19 16 12/21/2015 urina lysis , dipst ick Glucose Negati ve Not Available In-Office Order Internal Use Only DO Not Attach Compendium DO Not Attach Compendium, Do Not Delete/merge, 12/21/2015 10:52:46 12/21/1912/21/2015 urina lysis , dipst ick Appearance Clear Not Available In-Offi ce Order Internal Use Only DO Not Attach Compendium DO Not Attach Compendium, Do Not Delete/merge, 12/21/2015 10:52:46 12/21/1912/21/2015 urina lysis , dipst ick Color Yellow Not Available In-Office Order Internal Use Only DO Not Attach Compendium DO Not Attach Compendium, Do Not Delete/merge, 12/21/2015 10:52:46 01/05/20 17 01/11/2017 pap, IG [...] ous Cells of Undet ermin ed Signi tyshawn ce (ASC- US) COMME NT: This Pap test has been evalu ated with compu ter ammy carlson techn ology . CYTOT ECHNO LOGIS T: KF, CT( CP) CT scree jessi locat ion: [facility] [address], [place] [address] PATHO LOGIS T: Seymour ruiz M.D., (elec troni c signa ture) [facility] For quest ions conta ct [facility] Clien t Servi rody at [phone] Lab: NL1 HPV mRNA E6/E7 REFLE X HPV 16, 18/45 HPV mRNA E6/E7 Detec aldo Refer ence Range : Not Detec aldo This test was perfo rmed using the APTIM A HPV Assay ([employer] . This assay detec ts E6/E7 [...] T 3RD FLOOR ,[place] [address] Labor atory Direc tor: RAAD BOB MD , CLIA: [id number] TY3 [facility] [place] [facility] [address] [place] [address] Labor atory Direc tor: CIPRIANO DIAZ MD, CLIA: [id number] Not Available [facility] [address] [place], [address] 01/11/2017 08:35:34 01/05/20 17 01/11/2017 pap, IG + CT/NG + HR HPV + refle x HPV (16+1 8) neisseria gonorrhoeae RNA,tma NOT DETECT ED not detect ed Not Available [facility] [address] [place], [address] 01/11/2017 08:35:34 01/05/20 17 01/11/2017 pap, IG + CT/NG + HR HPV + refle x HPV (16+1 8) chlamydia trachomatis RNA, tma NOT DETECT ED not detect ed Not Available [facility] [address] [place], [address] 01/11/2017 08:35:34 01/05/20 17 01/11/2017 pap, IG + CT/NG + HR HPV + refle x HPV (16+1 8) message This test was perfo rmed using the APTIM A COMBO 2 Assay ([employer] . The faviola tical perfo rmanc e jeanette cteri stics of this assay , when used to test SureP ath speci mens have been deter mined by [facility]. Not Available [facility] [address] [place], [address] 01/11/2017 08:35:34 01/25/20 17 01/25/2017 surgi feliberto [...] nts marcela nued [place]. [address] x 3 Clini feliberto Diagn osis and [...] in one casse tte label ed 3A. JOANNE Testi dianna perfo rmed at [facility] 's [facility] t Labor atory , [address] [facility], [place] [address] CLIA [id number] CL-PO [id number]. Not Available [facility] [address] [facility], [place], [address] 01/25/2017 15:35:52 06/13/20 16 06/13/2016 MAMMO , lakshmi bowen, digit al, bilat eral HISTOR Y: Vega fine is 50 years old and is seen for screen ing. The patien t has a histor y of left stereo tactic core biopsy in 2007. The patien t has no person al histor y of breast or ovaria n cancer . The patien t has no family histor y of breast cancer . FILMS COMPAR ED: The presen t examin ation has been compar ed to prior imagin g studie s formerly [facility] [place] on 2010, 2012 and 2014. MAMMOG KENNY [...] in 1 year is recomm ended. The vega t will receiv e a lay summar [...] guidel jaye of the ACR BI-RAD S [place]. A refere nce guide is provid ed [...] lowers the sensit ivity of mammog stephanie. Vega ts in catego lio c. and d. may qualif y for supple mental screen ing exams. Thank you for referr ing your vega t to us, Justin MD (Elect jaya bagley Signed - 2015 11:33) Copy: ISAIAS Sanders MD [facility] [address] [place] [address] [phone] [facility] [place] [address], [place], [address], 06/18/2016 09:47:55 08/08/20 16 06/13/2016 ultra sound , therese fine No observ ation record ed. [facility] [address], [place], [address], 08/08/2016 17:48:50 01/10/20 17 01/08/2017 US, therese fine, francia jackson HISTOR Y: Vega fine is 51 years old and is seen for screen ing. The vega t has a histor y of left stereo tactic core biopsy in 2007. The patifloyd t has no person al histor y of breast or ovaria n cancer . The patien t has no family histor y of breast [...] guidel jaye of the ACR BI-RAD S [place]. A refere nce guide is provid ed [...] (Elect jaya bagley Signed - 2016 09:01) [facility] - [place] [address] [facility] [address], [place], [address], 01/10/2017 12:22:38 Result Notes None recorded. Problems Name Problem SNOMED Code Status Onset Date Resolution Date Notes Provider Name and Address Organization Details Recorded Time Mammography finding 806678039 Active Rosa Francois chayo, [facility] 6 10:52:46 Hearing loss 14338135 Active 2011 Rosa null, [facility] 6 10:52:46 Migraine 66045008 Active 2014 Rosajennifer Francois null, [facility] 6 10:52:46 Seasonal allergic rhinitis 076098041 Active 2014 Rosajennifer Francois null, [facility] 6 10:52:46 Sleep apnea 18611459 Active 2014 Rosajennifer Francois null, [facility] 6 10:52:46 Anxiety state 223139974 Active 2011 Rosa null, [facility] 6 10:52:46 Depressive disorder 46870391 Active 2011 Rosa null, [facility] 6 10:52:46 Problem Notes None recorded. Procedures Surgical History Date Name Laterality Status Provider Name and Address Organization Details Recorded Time 7 Colposcopy Procedure Note completed NIRMAL CARLSON MD [address] [place] [address], [address] Floor, [place], [address], [facility] 01/24/2017 21:39:31 7 Colposcopy completed Rosa Francois [place] - [facility] 01/24/2017 13:30:49 7 V1U-ZDA completed NIRMAL CARLSON MD [address], [address] Floor, [place], [address], [place] - [facility] 01/05/2017 09:51:07 7 T3R-DENWO completed NIRMAL CARLSON MD [address], [address], [place], [address], [place] - [facility] 01/05/2017 09:51:19 7 X7M-LGS completed NIRMAL CARLSON MD [address], [address], [place], [address], [facility] - [facility] 01/05/2017 09:50:59 7 Z1X-ZHJ completed NIRMAL CARLSON MD [address], [address] Floor, [place], [address], [place] - [facility] 01/05/2017 09:51:13 7 Z7S-YBWDFPO completed NIRMAL CARLSON MD [address], [address] Floor, [place], [address], [facility] - [facility] 01/05/2017 09:50:56 7 Z2Y-GHDOBO completed NIRMAL CARLSON MD [address], [address] Floor, [place], [address], [place] - [facility] 01/05/2017 09:51:02 7 Date of Last Pap Smear completed Rosa Francois [place] - [facility] 01/23/2017 11:04:27 6 Date of Last Mammogram completed Chichi Bai [place] - [facility] 06/13/2016 12:15:10 6 G7V-AVCNE completed NIRMAL CARLSON MD [address] Floor, [place], [address], [place] - [facility] 12/21/2015 11:33:41 6 R6R-RLLFQD completed NIRMAL CARLSON MD [address] [facility], [address] [place] [address], [place], [address], [place] - [facility] 12/21/2015 11:33:41 6 V6O-QBN completed NIRMAL CARLSON MD [address] [facility], [address] [facility], [place], [address], [place] - [facility] 12/21/2015 11:33:41 6 X4O-FGO completed NIRMAL CARLSON MD [address] [facility], [address] [place] [address], [place], [address], [place] - [facility] 12/21/2015 11:33:41 6 X2J-KJMPKGH completed NIRMAL CARLSON MD [address] [facility], [address] [place] [address], [place], [address], [place] - [facility] 12/21/2015 11:33:41 6 Z3L-BXRWAT completed NIRMAL CARLSON MD [address] [facility], [address] [place] [address], [place], [address], [place] - [facility] 12/21/2015 11:34:48 1 Cryotherapy of the cervix completed Rosa Francois [place] - [facility] 12/21/2015 11:07:24 Imaging Results Imaging Date Name Status [facility]Modified by [facility] Details LastModified Time 06/13/2016 MAMMO, screening, digital, bilateral [facility] [place] [address], [place], [address], 06/18/2016 09:47:55 06/13/2016 ultrasound, breast completed [address], [place], [address], 08/08/2016 17:48:50 01/08/2017 [facility] [address], [place], [address], 01/10/2017 12:22:38 Procedure Notes None recorded. Medical Equipment None Reported. Allergies Allergen ID Allergen Name Allergen Category Reaction Reaction Severity Criticality Documentation Date Start Date Code Code System Note Provider Name and Address Organization Details Recorded Time 694411 No known allergy (situatio n) Not available Not available Not available Not available 02/27/20152012 28342 6003 SNOMED Rosa Lord [facility], [facility] 6 12:27:00 910961 lidocaine medicatio n hives moderate Not available 01/04/2017 6387 RxNorm Desire Pellrine [facility] 7 16:09:49 Medications Name Sig Start Date [...] Available Not Available Not Available Fluarix Quad 5764-0537 (PF) 60 mcg (15 mcg x 4)/0.5 mL IM syringe 01/04 completed Not Available Not Available Not Available Vitals Date Recorded Body height Body mass index (BMI) Body weight Systolic blood pressure Diastolic blood pressure Provider Name and Address Organization Details Last Updated DateTime 12/21/2015 167.005 cm 29.4 kg/m2 82684.21 897 g 110 mm[Hg] 74 mm[Hg] Rosa Francois [facility] 6 11:07:36 Date Recorded Body height Body weight Body mass index (BMI) Systolic blood pressure Diastolic blood pressure Provider Name and Address Organization Details Last Updated DateTime 01/04/2017 167.64 cm 24262.85 g 25.2 kg/m2 128 mm[Hg] 84 mm[Hg] Desire Velasquez [facility] 7 16:23:15 Date Recorded Body height Body weight Body mass index (BMI) Systolic blood pressure Diastolic blood pressure Provider Name and Address Organization Details Last Updated DateTime 01/24/2017 167.64 cm 76289.41 g 25.2 kg/m2 102 mm[Hg] 80 mm[Hg] Rosa Francois [facility] 7 13:43:52 Social History Question Answer Notes LastModified by [employer] ion Details LastModified Time Tobacco Smoking Status Never [facility] 10:54:57 Is Blood Transfusion Acceptable In An Emergency? Yes Information not available 12/21/2015 Education 4 Year College Information not available 01/04/2017 Do You Have Any Children? Yes Information [...] Functional Status Question Answer Note LastModified by Organizat ion Details LastModified Time What is your level of alcohol consumption? 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 Occasional Information [...] or breast cancer Medical History Condition Response Anxiety Disorder Y Depression Y Gynecological History Statement/Question Response Abnormal Pap [...] SNOMED-CT Code Diagnosis ICD10 Code Diagnosis Note [id number] NIRMAL CARLSON MD [place] [id number] 7 12/21/2015 10:23:41 12/21/2015 11:52:29 Gynecologic examination 39173419 Z01.411 Z01.419 Contraception care 60598 5005 Z30.40 [id number] NIRMAL CARLSON MD [address] [address] 01/04/2017 15:46:20 01/04/2017 17:06:21 Gynecologic examination 08188087 Z01.472 [id number] NIRMAL CARLSON MD [place] [phone] 7 01/24/2017 13:20:17 01/24/2017 14:26:47 Atypical squamous cells of undetermined significance on cervical Papanicolaou smear 678741482 R87.610 Polyp at cervical os 248 463494 N84.1 Health Concerns Section Related Observation LastModified by Organization Detai ls LastModified Time None Recorded Concern Status LastModified by Organization Details LastModified Time None Recorded Advance Directives Directive None Recorded Payers Insurance Date Sequence Insurance Name Policy Number Policy Rasmussen Covered Member ID Rasmussen Member ID Guarantor Name 01/24/2017 1 [place] [facility] [id number] Hetal Monk [id number] Hetal Ware Aleshia Notes Date Note Type Note Provider Name and Address Organization Details Recorded Time 12/21/2015 text/html [facility] Annual GYNReported bypatient.History:no gynecologic complaints; no change in interval history; . living with a friend in [facility]. Daughter in an apartment. had an issue [...] age. STD screening offered. NIRMAL CARLSON MD [address] [place] [address], [address] Floor, [place], [address], [place] - [facility] 12/22/2015 21:28:34 01/04/2017 text/html [facility] Annual GYNReported bypatient.Menstrual cycle:Normal menses Urinary symptoms:No [...] . he travels alot. NIRMAL CARLSON MD [address] [place] [address], [address] [place] [address], [phone], [facility] 01/05/2017 09:53:07 01/24/2017 text/html [facility] Abnormal Pap SmearReported bypatient.Onset/Matt ng:pap smear performed on: (01/04/17) Quality:pap smear results: (epithelial cell abnormality) Associated Symptoms:no vaginal/vulvar pain; no vulvar lesions/growths; no vaginal discharge; no postcoital bleeding; no dyspareunia NIRMAL CARLSON MD [address] [place] [address], [address] [place] [address], [phone], [facility] 01/24/2017 21:42:19 OBGyn Episode No OBEpisode recorded.
--- OUTSIDE RECORDS SUMMARY | 2025-03-24 13:50 | XMS_ITS | Encounter Summary ---
Author Organization [facility] Address [address] [place] [address] Care Team Providers Care Film Cutter Name Role Phone Gladis Haney MD Primary Care Provider Pcp, No Primary Care Provider Unavailabl e Encounter Details Date Type Department Care Team (Late st Contact Info) Description 09/04/2017 Scanned Document [facility] [address] [facility] [address] [place] [id number] Provider, External, [address] [place] [address] Social History Tobacco Use Types Packs/Day Years Used Date Smoking Tobacco: Former Comments:Unknown quit date Alcohol Use Standard Drinks/Week Comments Yes 0 (1 standard drink = 0.6 oz pur e alcohol) Comments Unknown Sex and Gender Information Value Date Recorded Sex Assigned at Not on file Legal Sex Female 2:42 PM EDT Gender Identity Not on file Sexual Orientation Not on file documented as of this encounter Plan of Treatment Not on file documented as of this encounter Visit Diagnoses Not on filedocumented in this encounter Care Teams Film Cutter Relationship Specialty Start Date End Date Gladis Haney MD [address] [facility] [address] [place] [address] PCP - General Internal Medicine 10/2/15 3/20/23 Pcp, No PCP - General General Medicine 01/23/23 documented as of this encounter
--- OUTSIDE RECORDS SUMMARY | 2025-03-24 13:50 | XMS_ITS | Encounter Summary ---
Author Organization [facility] Address [address] [place] [address] Care Team Providers Care Reimbursement Analyst Name Role Phone Gladis Haney MD Primary Care Provider [phone] Pcp, No Primary Care Provider Unavailabl e Encounter Details Date Type Department Care Team (Late st Contact Info) Description 06/19/2016 Scanned Document [facility] [place] [address] [facility] [address] [place] [phone] Provider, Generic Social History Tobacco Use Types [...] on filedocumented in this encounter Care Teams Reimbursement Analyst Relationship Specialty Start Date End Date Gladis Haney MD [address] [facility] [address] [place], [place] [id number] PCP - General Internal Medicine 08/06/15 01/22/23 Pcp, No PCP - General General Medicine 01/23/23 documented as of this encounter
--- OUTSIDE RECORDS SUMMARY | 2025-03-24 13:50 | XMS_ITS | Clinical Summary ---
Author Organization [facility] Address [address] [place] [address] Care Team Providers Care Gold Assayer Name Role Phone Jacqueline Pereira MD Primary Care Provider [phone] Allergies Active Allergy Reactions Criticality Noted Date Comments Lidocaine Rash Low 10/14/2021 Thimerosal (Thiomersal) Rash Low 10/14/2021 Medications Medication Sig Dispensed Refills Start Date End Date Status Cetirizine HCl (ZyrTEC ALLERGY) 10 MG CAPS Zyrtec 10 mg capsule 0 Active omeprazole (PriLOSEC OTC) 20 MG tablet Prilosec OTC 20 mg tablet,delayed release TAKE 1 TABLET BY ORAL ROUTE PRN 0 12/11/2014 Active fluticasone (FLONASE) 50 MCG/ACT nasal spray spray/apply 1 spray in each nostril daily. 0 Active amphetamine-dextroam phetamine (ADDERALL) 10 MG tablet Take 1 tablet (10 mg total) by mouth daily. 0 Active azelastine (ASTELIN) 0.1 % nasal spray spray or apply 1 spray inside Nose 2 (two) times a day. Use in each nostril as directed 0 Active anastrozole (ARIMIDEX) 1 MG tablet TAKE 1 TABLET BY MOUTH EVERY DAY 90 tablet 3 01/21/2024 Active Active Problems Problem Noted Date Diagnosed Date Osteopenia of multiple sites 03/22/2024 Weight loss 03/22/2024 Left adrenal mass 08/22/2022 Hx of appendectomy 08/21/2022 Malignant neoplasm of upper- outer quadrant of right breast in female, estrogen receptor positive 10/14/2021 Immunizations Name Administration Dates Next Due Covid-19 (Pfizer 12+) Bivalent 09/22/2022 Covid-19 (Pfizer) Dilution Required 05/18/2021,0 04/28/2021 Family History Medical History Relation Name Comments Diabetes Father Hypertension Father Cancer Maternal Grandmother Thyroid disease Maternal Grandmother Thyroid disease Mother Relation Name Status Comments Father Maternal Grandmother Mother Social History Tobacco Use Types Packs/Day Years Used Date Smoking Tobacco: Former Cigarettes 0.3 Smokeless Tobacco: Never Comments:quit 01/2021 Alcohol Use Standard Drinks/Week Comments Yes 2 (1 standard drink = 0.6 oz pur e alcohol) Socially Sex and Gender Information Value Date Recorded Sex Assigned at Not on file Gender Identity Not on file Sexual Orientation Not on file Job Start Date Occupation Industry Not on file Not on file Not on file Last Filed Vital Signs Vital Sign Reading Time Taken Comments Blood Pressure 135/97 03/17/2024 3:57 PM EDT Pulse 97 03/17/2024 3:57 PM EDT Temperature 36.7 ??C (98.1 ??F) 03/17/2024 3:57 PM ED T Respiratory Rate - - Oxygen Saturation 97% 03/17/2024 3:57 PM EDT Inhaled Oxygen Concentration - - Weight 78.7 kg (173 lb 6.4 oz) 03/17/2024 3:57 P M EDT Height 167.6 cm (5' 6 ) 03/17/2024 3:57 PM EDT Body Mass Index 27.99 03/17/2024 3:57 PM EDT Plan of Treatment Health Maintenance Due Date Last Done Comments Hepatitis B Vaccines (1 of 3 - 3-dose series) 1965 Hepatitis C Screening 1965 Pneumococcal Vaccine (1 of 2 - PCV) 1971 Depression Screening 1977 BMI Counseling 1983 Preventative Health Evaluation 1983 Shingrix-Zoster Vaccine (1 of 2) 1984 Cervical Cancer Screening (Pap Smear) 1986 Colon Cancer Screening (Colonoscopy) 2010 Breast Cancer Screening (Mammogram) 2015 COVID-19 Vaccine ( season) 2024 09/22/2022, 05/18/2021, 04/28/2021 Influenza Vaccine (#1) 2024 3, 09/22/2022, 11/20/2021, Additional history exists DTap / Tdap / Td (3 - Td or Tdap) 09/07/2027 09/07/2017, 09/11/2011 RSV Ped < 20 months Aged Out No longe r eligible based on patient's age to complete this topic Care Teams Gold Assayer Relationship Specialty Start Date End Date Jacqueline Pereira MD PCP - General Internal Medicine 04/24/22
--- OUTSIDE RECORDS SUMMARY | 2025-03-24 13:50 | XMS_ITS | Encounter Summary ---
Author Organization [facility] Address [address] [place] [address] Care Team Providers Care Railway Switchman Name Role Phone Gladis Haney MD Primary Care Provider [phone] Pcp, No Primary Care Provider Unavailabl e Reason for Visit * Reason Comments Medication Refill Encounter Details Date Type Department Care Team (Late st Contact Info) Description 08/14/2016 Refill [facility] [place] [address] [facility] [address] [place] [address] Gladis Haney MD [address] [facility] [address] [place] [address] Allergic rhinitis, unspecified allergic rhinitis type Social History Tobacco Use Types Packs/Day Years [...] documented as of this encounter Visit Diagnoses Diagnosis Allergic rhinitis, unspecified allergic rhinitis type documented in this encounter Care Teams Railway Switchman Relationship Specialty Start Date End Date Gladis Haney MD [address] [place] [address] [address] [place] [address] PCP - General Internal Medicine 08/06/15 01/22/23 Pcp, No PCP - General General Medicine 01/23/23 documented as of this encounter
--- OUTSIDE RECORDS SUMMARY | 2025-03-24 13:50 | XMS_ITS | Clinical Summary ---
Author Organization [facility] Address [address] [place] [address] Care Team Providers Care Security System Sales Consultant Name Role Phone Pcp, No Primary Care Provider Unavailabl e Allergies Active Allergy Reactions Criticality Noted Date Comments Lidocaine Other (See Comments) 06/14/2015 Medications fluticasone (FloNASE) 50 mcg/spray nasal sprayIndications :Allergic rhinitis, unspecified allergic rhinitis type USE 1 TO 2 SPRAYS IN EACH NOSTRIL ONCE DAILY 1 Bottle 2 06/14/2015 Active azelastine (ASTELIN) 0.1 % nasal sprayIndications :Allergic rhinitis, unspecified allergic rhinitis type USE 2 SPRAYS IN EACH NOSTRIL TWICE A DAY 1 Bottle 2 06/14/2015 Active Immunizations Immunization Administration Dates Next Due Influenza Inactivated/Split Preservative Free IM 09/30/2014,10/01/2013,08/05/2011,2009 Tdap 09/11/2011 Family History Medical History Relation Name Comments Alcohol abuse Brother Depression Daughter Personality disorder Daughter Borderl ine Diabetes type II Father Mellitus- U ncomplicated, Controlled Hyperlipidemia Father Hypothyroidism Mother Uterine cancer Mother Relation Name Status Comments Brother Daughter Father Mother Social History Tobacco Use Types Packs/Day Years Used Date Smoking Tobacco: Former Comments:Unknown quit date Alcohol Use Standard Drinks/Week Comments Yes 0 (1 standard drink = 0.6 oz pur e alcohol) Comments Unknown Sex and Gender Information Value Date Recorded Sex Assigned at Not on file Legal Sex Female 2:42 PM EDT Gender Identity Not on file Sexual Orientation Not on file Last Filed Vital Signs Vital Sign Reading Time Taken Comments Blood Pressure 110/80 05/10/2015 10:01 AM EDT Pulse 60 05/10/2015 10:01 AM EDT Temperature 36.5 ??C (97.7 ??F) 05/10/2015 10:01 AM E DT Respiratory Rate - - Oxygen Saturation - - Inhaled Oxygen Concentration - - Weight 81.7 kg (180 lb 0.1 oz) 05/10/2015 10:01 AM EDT Height 168.3 cm (5' 6.25 ) 05/10/2015 10:01 AM E DT Body Mass Index 28.84 05/10/2015 10:01 AM EDT Plan of Treatment Health Maintenance Due Date Last Done Comments Hepatitis C Virus Screening 1965 HIV Screening 1978 Hepatitis B Vaccines (1 of 3 - 19+ 3-dose series) 02/1984 Pneumococcal Vaccines 50+ (1 of 1 - PCV) 2015 Zoster (Shingles) Vaccine (1 of 2) 2015 DTaP/Tdap/Td Vaccines (2 - Td or Tdap) 09/11/2021 COVID-19 Vaccine ( - 2023- season) 2024 Care Teams Security System Sales Consultant Relationship Specialty Start Date End Date Pcp, No PCP - General General Medicine 01/23/23
--- OUTSIDE RECORDS SUMMARY | 2025-03-24 13:50 | XMS_ITS | Encounter Summary ---
Author Organization [facility] Address [address] [place] [address] Care Team Providers Care Cutlet Maker Pork Name Role Phone Gladis Haney MD Primary Care Provider Pcp, No Primary Care Provider Unavailabl e Encounter Details Date Type Department Care Team (Late st Contact Info) Description 01/08/2017 Scanned Document [facility] [place] [address] [facility] [address] [place] [address] Provider, Generic Social History Tobacco Use Types [...] on file documented as of this encounter Procedures Procedure Name Priority Date/Time Associated Diagnosis Comments LAB RESULT 01/11/2017 LAB RESULT 01/08/2017 documented in this encounter Results * LAB RESULT (01/11/2017) Narrative 01/11/2017 Ordered by an unspecified provider. us Generic Provider HX AMB PROCEDURES Edited Result - Final * LAB RESULT (01/08/2017) Narrative 01/08/2017 Ordered by an unspecified provider. us Generic Provider HX AMB PROCEDURES Edited Result - Final documented in this encounter Visit Diagnoses Not on filedocumented in this encounter Care Teams Cutlet Maker Pork Relationship Specialty Start Date End Date Gladis Haney MD [address] [facility] [address] [place] [address] PCP - General Internal Medicine 08/06/15 01/22/23 Pcp, No PCP - General General Medicine 01/23/23 documented as of this encounter
== END 2025-03-24 14:08 | disposition home or self-care (01) ==
LOC: HO.HOS 12:46
PROVIDERS: PCP Internal Medicine; Visit Provider Orthopaedic Surgery
DX: C44.621 Squamous cell carcinoma of skin of unspecified upper limb, including shoulder (principal)
CPT/HCPCS: 99215

== ENCOUNTER → 2025-03-24 12:48 | Outpatient (BNV) | payer OTHER, SELFPAY | PROVIDERS: Visit Provider Radiology Diagnostic Radiology | DX: M18.11 Unilateral primary osteoarthritis of first carpometacarpal joint, right hand (principal) | CPT/HCPCS: 73130 ==

== ENCOUNTER 2025-03-25 10:50 | Day surgery (SDC) | payer OTHER, SELFPAY ==
--- OUTSIDE RECORDS SUMMARY | 2025-03-24 15:41 | XMS_ITS | Encounter Summary ---
Author Organization [facility] Address [address] [place] [address] Care Team Providers Care Product Planner Name Role Phone Gladis Haney MD Primary Care Provider [phone] Pcp, No Primary Care Provider Unavailabl e Reason for Visit * Reason Comments Medication Refill Encounter Details Date Type Department Care Team (Late st Contact Info) Description 08/14/2016 Refill [facility] [place] [address] [facility] [address] [place] [address] Gladis Haney MD 100 [facility] [address] [place] [address] Allergic rhinitis, unspecified allergic rhinitis type Social [...] type documented in this encounter Care Teams Product Planner Relationship Specialty Start Date End Date Gladis Haney MD [address] [place] [address] [address] [place] [address] PCP - General Internal Medicine 08/06/15 01/22/23 Pcp, No PCP - General General Medicine 01/23/23 documented as of this encounter
--- OUTSIDE RECORDS SUMMARY | 2025-03-24 15:41 | XMS_ITS | Encounter Summary ---
Author Organization [facility] Address [address] [place] [address] Care Team Providers Care Coordinator Mining Products Name Role Phone Gladis Haney MD Primary Care Provider Pcp, No Primary Care Provider Unavailabl e Encounter Details Date Type Department Care Team (Late st Contact Info) Description 09/04/2017 Scanned Document [facility] [place] 10 [address] [facility] [address] [place] [phone] Provider, External, [address] [place] [address] Social History Tobacco Use Types Packs/Day Years [...] on filedocumented in this encounter Care Teams Coordinator Mining Products Relationship Specialty Start Date End Date Gladis Haney MD 100 [facility] [address] [place] [address] PCP - General Internal Medicine 10/2/15 3/20/23 Pcp, No PCP - General General Medicine 01/23/23 documented as of this encounter
--- OUTSIDE RECORDS SUMMARY | 2025-03-24 15:41 | XMS_ITS | Clinical Summary ---
Author Organization [facility] Address [address] [place] [address] Care Team Providers Care Lipcoat Sprayer Name Role Phone Jacqueline Pereira MD Primary Care Provider [phone] Allergies Active Allergy Reactions Criticality Noted Date [...] age to complete this topic Care Teams Lipcoat Sprayer Relationship Specialty Start Date End Date Jacqueline Pereira MD PCP - General Internal Medicine 04/24/22
--- OUTSIDE RECORDS SUMMARY | 2025-03-24 15:41 | XMS_ITS | Encounter Summary ---
Author Organization [facility] Address [address] [place] [address] Care Team Providers Care Network Control Operators Supervisor Name Role Phone Gladis Haney MD Primary Care Provider [phone] Pcp, No Primary Care Provider Unavailabl e Encounter Details Date Type Department Care Team (Late st Contact Info) Description 06/19/2016 Scanned Document [facility] 10 [address] [facility] [address] [place] [phone] Provider, Generic Social History Tobacco Use Types [...] on filedocumented in this encounter Care Teams Network Control Operators Supervisor Relationship Specialty Start Date End Date Gladis Haney MD 100 [facility] [address] [place], [place] [phone] PCP - General Internal Medicine 08/06/15 01/22/23 Pcp, No PCP - General General Medicine 01/23/23 documented as of this encounter
--- OUTSIDE RECORDS SUMMARY | 2025-03-24 15:41 | XMS_ITS | Encounter Summary ---
Author Organization [facility] Address [address] [place] [address] Care Team Providers Care Supervisor Border Department Name Role Phone Gladis Haney MD Primary Care Provider Pcp, No Primary Care Provider Unavailabl e Encounter Details Date Type Department Care Team (Late st Contact Info) Description 01/08/2017 Scanned Document [facility] [place] 10 [address] [facility] [address] [place] [address] Provider, Generic Social History Tobacco [...] on filedocumented in this encounter Care Teams Supervisor Border Department Relationship Specialty Start Date End Date Gladis Haney MD 100 [facility] [address] [place] [address] PCP - General Internal Medicine 08/06/15 01/22/23 Pcp, No PCP - General General Medicine 01/23/23 documented as of this encounter
--- OUTSIDE RECORDS SUMMARY | 2025-03-24 15:42 | XMS_ITS | Clinical Summary ---
Author Organization [facility] Address [address] [place] [address] Care Team Providers Care Materials Engineer Name Role Phone Jacqueline Pereira MD Primary Care Provider [phone] Allergies Active Allergy Reactions Criticality Noted Date [...] high grade PETRA 2 08/05/2024 Breast cancer ([facility] V24, [facility] V28) 024 Malignant neoplasm of upper- outer quadrant of right breast in female, estrogen receptor positive ([facility] V24, [facility] V28) 12/27/2023 Left adrenal mass ([facility] V24) 08/22/2022 Hx of appendectomy 08/21/2022 Encounters Date Type Department Care Team Description 03/18/2025 3:45 PM EDT Office Visit [facility] Hematology Oncology [address] [place] [phone] Sulaiman Olivarez MD Malignant neoplasm of upper-outer quadrant of right breast in female, estrogen receptor positive ([facility] V24, [facility] V28) (Primary Dx); Reactive depression; Squamous cell [...] HISTORICAL MASTOIDECTOMY BREAST SURGERY 2020 Right PROCEDURE: ME UNLISTED PROCEDURE BREAST; COMMENT: ca BREAST BIOPSY [...] of iritis Migraine 11/07/2017 DX:Migraine Breast cancer ([facility] V24, [facility] V28) 2020 DX:Breast cancer ([facility]) Family History Medical History Relation Name Comments [...] care for your loved ones. For example, registered nurse maternal child or elderly care for an older adult? [...] EDT Office Visit [facility] [address] [facility] [address] [place] [phone] Charline Huggins MD [address] [facility] [address] [place] [address] 08/18/2025 4:30 PM EDT Appointment Radiology Department - [place] [address] [place] [address] 10/07/2025 3:45 PM EST Office Visit [facility] Hematology Oncology [address] [place] [address] Sulaiman Olivarez MD [address] [place] [address] Health Maintenance Due Date Last [...] Breast cancer risk category Low (<15%) Location: [facility], [address] [place] [address], [place], [address], [phone] Procedure Note Irma Sr MD - 09/02/2024 [...] Breast cancer risk category Low (<15%) Location: [facility], [address] [place] [address], [address], [phone] Sonia Torres MD IMG XR PROCEDURES Final Result * Cervical Cancer Screening: HPV (10/02/2023) [facility] Cervical Cancer Screening: HPV negative, abstracted Historical Provider HEALTH MAINTENANCE Final Result * Colonoscopy (10/19/2021) [facility] Colonoscopy no interpretation , abstracted Anatomical Region Laterality Modality Other Historical Provider HEALTH MAINTENANCE Final Result * Hepatitis C Screening (09/07/2017) [facility] Hepatitis C Screening abstracted Historical Provider HEALTH MAINTENANCE Final Result from Last 3 Months or Most Recently Relevant to Health Maintenance Insurance [facility] Care Teams Materials Engineer Relationship Specialty Start Date End Date Jacqueline Pereira MD [address] [place] [address] PCP - General Internal Medicine 08/15/22
--- OUTSIDE RECORDS SUMMARY | 2025-03-24 15:42 | XMS_ITS | Clinical Summary ---
Author Organization [facility] Address [address] [place] [address] Care Team Providers Care Mica Miner Name Role Phone Pcp, No Primary Care [...] ( - 2023- season) 2024 Care Teams Mica Miner Relationship Specialty Start Date End Date Pcp, No PCP - General General Medicine 01/23/23
--- OUTSIDE RECORDS SUMMARY | 2025-03-24 15:42 | XMS_ITS | Encounter Summary ---
Author Organization [facility] Address [address] [place] [address] Care Team Providers Care Decorator Consultant Name Role Phone Gladis Haney MD Primary Care Provider [phone] Gladis Haney MD Primary Care Provider [phone] Pcp, No Primary Care Provider Unavailabl e Encounter Details Date Type Department Care Team (Late st Contact Info) Description 06/08/2015 Scanned Document [address] [place] [phone] Provider, Generic Social History Tobacco Use Types [...] on filedocumented in this encounter Care Teams Decorator Consultant Relationship Specialty Start Date End Date Gladis Haney MD 100 [facility] [address] [place] [address] PCP - General Internal Medicine 08/06/15 01/22/23 Gladis Haney MD [address] [place] [address] PCP - General 08/05/15 Pcp, No PCP - General General Medicine 01/23/23 documented as of this encounter
[2025-03-25 12:27] VITALS: BP 156/93; PULSE 86; RESP 16; TEMP 36.9; O2SAT 96; BMI 28.2
--- NOTE | 2025-03-25 12:27 | PC.NURSE ---
patient has listed allergy to lidocaine. per patient allergy is only to topical lidocaine and has had lidocaine injections in the past without any issues. Dr. Guardado and MISAEL Valle aware.
--- NOTE | 2025-03-25 13:04 | MHC.SHP ---
Pre-Procedural Eval Section A - 24 Hr Update-Section A only Date of Service: 03/25/25 The patient is an INPATIENT: No Changes since office visit: No Cold of Flu in the past 2 weeks, No New Medical Problems, No Changes in Medication and No Patient answered all questions The patient has been examined within 24 hours of the surgical procedure. 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 No changes have occurred unless specified. Time Spent With Patient Time: Total time managing care of this patient today ____ minutes.
--- NOTE | 2025-03-25 13:06 | P.OP_ITS ---
Operative Note Operative Note Date of Service: 03/25/25 Narrative: Operative Note Preop diagnosis: 1. 1. 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 Right middle finger D IP level amputation Surgeon: Cris Guardado MD Environmental Resource Specialist: Ki DOUGLAS Anesthesia: digital block using 1% lidocaine with epinephrine EBL: Less than 5 mL Tourniquet time: None Specimens: Right middle finger distal to the D IP joint sent for histopathology with history of invasive squamous cell carcinoma Complications: None Disposition: Brought to recovery room in stable condition Plan: Follow-up for 7-10 days for wound check and suture removal and to check pathology Indications: The patient is 59 years old, with right middle finger invasive squamous cell carcinoma status post excision of mass . The risks and benefits of operative treatment including but not limited to risk of damage to blood vessels, nerves, tendons, infection, persistent pain, persistent symptoms, recurrence or possible need for additional surgery were discussed with the patient and the patient wishes to proceed with surgery. Procedure: Once consent was obtained a digital block was performed in the preop area using a combination of 1% lidocaine with epinephrine. The patient was then brought back to the operating suite and placed on the operative table in supine position. The right upper extremity was prepped and draped in a standard surgical fashion. Once assured that we had a good block, a finger tourniquet was placed about the base of the right middle finger for fewer than 30 minutes. I made a fish mouth type incision coming transversely just distal to the D IP joint on the dorsal side, and coming transversely a little over half the distance of the pad of the middle finger. On the dorsal side the incision was made deep and down to the dorsal aspect of the D IP joint and then across both the radial and ulnar collateral ligaments. Volarly the incision was made sharply through the skin down to the subcutaneous tissues. I then lifted the volar flap of tissues off of the volar aspect of the distal phalanx and flexor tendon. I then made a transverse incision across the FDP tendon at the D IP joint and the distal aspect of the digit was removed and placed on the back table to be sent for histopathology. We did note that the patient had invasive squamous cell carcinoma status post a previous excision of the mass without clear margins. At this point the wound was irrigated with normal saline. Are volar flap fit nicely over the tip of the finger. The skin edges were reapproximated with some 5 0 Prolene suture material. The finger tourniquet was removed and we had good cap refill to the tip of the digit before placing our dressing. A sterile dressing was then applied. The patient appears to have tolerated the procedure well and with no complications. All digits were well vascularized at the conclusion of the case.
[2025-03-25 14:48] VITALS: BP 143/88; PULSE 85; RESP 17; O2SAT 98
== END 2025-03-25 14:50 | disposition home or self-care (01) ==
PROVIDERS: PCP Internal Medicine; Visit Provider Orthopaedic Surgery
PROC: (CPT 26951; principal; 2025-03-25 15:20)
DX: C44.622 Squamous cell carcinoma of skin of right upper limb, including shoulder (principal); M79.641 Pain in right hand; R20.0 Anesthesia of skin; Z85.3 Personal history of malignant neoplasm of breast; E11.9 Type 2 diabetes mellitus without complications; Z88.4 Allergy status to anesthetic agent; Z98.890 Other specified postprocedural states; Z87.891 Personal history of nicotine dependence
CPT/HCPCS: 26952; 88305; 88311; J0171; J2003

== ENCOUNTER → 2025-03-25 10:50 | Outpatient (BNV) | payer OTHER, SELFPAY | PROVIDERS: PCP Internal Medicine; Visit Provider Orthopaedic Surgery | DX: S68.622A Partial traumatic transphalangeal amputation of right middle finger, initial encounter (principal); C44.622 Squamous cell carcinoma of skin of right upper limb, including shoulder | CPT/HCPCS: 26951 ==

== ENCOUNTER 2025-03-31 15:45 | Outpatient (AMB) | payer OTHER, SELFPAY ==
--- NOTE | 2025-03-31 15:52 | MHC.PC.OV ---
Vital Signs 03/31/25 15:53 Height 5 ft 6 in Weight 180 lb 4 oz BMI 29.1 BP 132/88 Blood Pressure Location Lt brachial Position Sitting Respiration 14 Pulse 85 Pulse Source Pulse Oximeter Pulse Oximetry (%) 97 Oxygen Delivery Method Room Air Intake Visit Reasons: FU Labs Intake Note: Follow up labs Ict Teacher Required: No Allergies lidocaine Allergy (Intermediate, Verified 03/31/25 15:52) Itching Tobacco use date assessed: 03/24/24 Dental Screening Dental Screen Date: 03/24/24 HPI HPI Comments History of Present Illness Details 59 year old female with a past medical history of breast cancer, osteopenia, allergies, GERD, anxiety/depression, adrenal mass presenting for physical exam Anxiety: stable on prozac, prn ativan. She has had an incredible amount of stress, anxiety recently. Her adult daughter has been having trouble with an on and off toxic relationship and with drug use. Her finances are strained by helping her out . IBS continues to be an issue. She has intermittent symptoms abdominal cramping and discomfort across the lower abdomen. Denies fevers, blood in the stools. She does have bouts of diarrhea. Often resolves symptoms. Increased with stress. She has a history of diverticulosis on colonoscopy Her persistent swelling pain and warmth of the distal right middle finger ended up being SCC. She is following with dermatology and orthopedics and has undergone amputation of the finger Heme/Onc: History of breast cancer. Sees heme/onc, Dr Wyatt. Recently saw Dr Wyatt, sees Dr Huggins in October. GI: On omeprazole 10mg daily. Needs to take daily. Endocrine: Adrenal mass was being monitored Colonoscopy & EGD 2022 Breast cancer screening is UTD Got flu and COVID vaccine this fall at the pharmacy ROS see HPI PHYSICAL EXAM: GENERAL: Alert and oriented x 3. NAD EYES: EOMI. Anicteric. HENT: Moist mucous membranes. No scleral icterus. No cervical lymphadenopathy. LUNGS: Clear to auscultation bilaterally. CARDIOVASCULAR: Regular rate and rhythm. No murmur. No JVD. ABDOMEN: Soft, non-tender +bs EXTREMITIES: No edema. Non-tender. SKIN: No rashes or lesions. Warm. NEUROLOGIC: No focal neurological deficits. CN II-XII grossly intact PSYCHIATRIC: Cooperative. 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 1. Little interest or pleasure in doing things: several days 2. Feeling down, depressed, or hopeless: several days 3. Trouble falling or staying asleep, or sleeping too much: several days 4. Feeling tired or having little energy: several days 5. Poor appetite or overeating: several days 6. Feeling bad about yourself - or that you are a failure or have let yourself or your family down: not at all 7. Trouble concentrating on things, such as reading the newspaper or watching television: several days 8. Moving or speaking so slowly that other people could have noticed. Or the opposite - being so fidgety or restless that you have been moving around a lot more than usual: not at all 9. Thoughts that you would be better off or of hurting yourself in some way: not at all Total score: 6 Depression Screening Interpretation: Positive Depression Screening Follow-up: Existing condition and In treatment Depression Screening Done: Yes 35416 - PHQ-9 Billing: Yes Source: Developed by Drs. Stiven Aquino, Reena Matthews, Virgil Melo and colleagues, with an educational dewayne from [employer]. Thrive Questionnaire Date Thrive assessed: 03/24/25 I am a: Patient What is your living situation today?: I have a steady place to live Within the past 12 months, did the food you bought not last and you didn't have the money to get more?: Never true Within the past 12 months, did you worry whether your food would run out before you got money to buy more?: Never true Do you have trouble paying for medicines?: No Do you have trouble getting transportation to medical appointments?: No Do you have trouble paying your heating and electricity bill?: No Do you have trouble taking care of your child, family member or friend?: No Do you have trouble with day-to-day activities such as bathing, preparing meals, shopping, managing finances, etc.?: No Are you currently unemployed and looking for a job?: No Are you interested in more education?: No Please select the resources that you would like help with: Care for elder or disabled Currently or been in a relationship where the following occur: No concerns reported THRIVE Score: 0 AUDIT C Alcohol Use Questionnaire (AUDIT-C) 1. How often do you have a drink containing alcohol?: 2-4 times a month 2. How many drinks containing alcohol do you have on a typical day when you are drinking?: 1 or 2 3. How often do you have six or more drinks on one occasion?: Never Total Score: 2 KESHA-7 AMB Questionnaire KESHA-7 Date KESHA - 7 assessed: 03/24/24 Feeling nervous, anxious, or on edge: 2 = More than half the days Not being able to stop or control worryin = More than half the days Worrying too much about different things: 2 = More than half the days Trouble relaxin = Several days Being so restless that it is hard to sit still: 0 = Not at all Becoming easily annoyed or irritable: 2 = More than half the days Feeling afraid as if something awful might happen: 2 = More than half the days Total KESHA-7 score (0-4 normal; 5-9 mild; 10-14 moderate; 15-21 severe): 11 Source: Developed by Drs. Stiven Aquino, Reena Matthews, Virgil Melo and colleagues, with an educational dewayne from [employer]. Physical exam (Primary Care) Vital Signs: Last Vital Signs Pulse 85 03/31/25 15:53 Resp 14 03/31/25 15:53 BP 132/88 03/31/25 15:53 Pulse Ox 97 03/31/25 15:53 Oxygen Delivery Method Room Air 03/31/25 15:53 BMI result Body Mass Index 29.1 Tobacco/Smoking Status: Tobacco use Status Tobacco use date assessed 03/24/24 03/31/25 15:56 Patient Tobacco Use Status Former Tobacco user 03/31/25 15:56 PHQ-9: PHQ-9 Score PHQ-9: Total score 6 04/08/25 13:20 Depression Screening Interpretation: Positive Depression Screening Follow-up: Existing condition and In treatment Thrive Assessment: Date of Thrive Assessment Date Thrive assessed 03/24/25 03/31/25 15:56 Currently or been in a relationship where the following occur: No concerns reported Coding Level of Care Code Est Pt Level 4 (43565) Complex EM visit Add On G2211 Diagnoses Elevated glucose R73.09 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 C44.622 Laterality: right Acute stress reaction F43.0 Adrenal mass E27.8 Additional Codes PHQ-9 - 05063 - PHQ-9 Billing: Yes ([id number]) Assessment & Plan Assessment & Plan (1) Elevated glucose: Code(s): R73.09 - Other abnormal glucose Category: Medical (2) Squamous cell carcinoma of skin of finger: Comment: R MF Code(s): C44.621 - Squamous cell carcinoma of skin of unspecified upper limb, including shoulder Category: Medical Qualifiers: Laterality: right Qualified Code(s): C44.622 - Squamous cell carcinoma of skin of right upper limb, including shoulder (3) Acute stress reaction: Comment: Doing well on fluoxetine. continue current dosing Code(s): F43.0 - Acute stress reaction Category: Medical (4) Adrenal mass: Comment: continue follow up with endocrine Code(s): E27.8 - Other specified disorders of adrenal gland Category: Medical Plan 59 year old female for follow up BH-stable on fluoxetine and adderall. Lorazepam prn IBS-on prn levsin, PPI s/p SCC History of breast cancer. continue follow up heme/onc Orders: Orders Hemoglobin A1c 03/31/25 C44.621 - Squamous cell carcinoma of skin of unspecified upper limb, including shoulder, F43.0 - Acute stress reaction, E27.8 - Other specified disorders of adrenal gland, Z98.890 - Other specified postprocedural states, R73.09 - Other abnormal glucose Complete Blood Count Auto Diff 03/31/25 C44.621 - Squamous cell carcinoma of skin of unspecified upper limb, including shoulder, F43.0 - Acute stress reaction, E27.8 - Other specified disorders of adrenal gland, Z98.890 - Other specified postprocedural states, R73.09 - Other abnormal glucose Comprehensive Met. Panel 03/31/25 C44.621 - Squamous cell carcinoma of skin of unspecified upper limb, including shoulder, F43.0 - Acute stress reaction, E27.8 - Other specified disorders of adrenal gland, Z98.890 - Other specified postprocedural states, R73.09 - Other abnormal glucose Lipid Panel 03/31/25 C44.621 - Squamous cell carcinoma of skin of unspecified upper limb, including shoulder, F43.0 - Acute stress reaction, E27.8 - Other specified disorders of adrenal gland, Z98.890 - Other specified postprocedural states, R73.09 - Other abnormal glucose
[2025-03-31 15:53] VITALS: BP 132/88; PULSE 85; RESP 14; O2SAT 97; BMI 29.1
== END 2025-03-31 16:14 | disposition home or self-care (01) ==
LOC: HO.HMCFM 15:46
PROVIDERS: PCP Internal Medicine; Visit Provider Internal Medicine
DX: R73.09 Other abnormal glucose (principal); C44.622 Squamous cell carcinoma of skin of right upper limb, including shoulder; F43.0 Acute stress reaction; E27.8 Other specified disorders of adrenal gland

== ENCOUNTER → 2025-03-31 15:45 | Outpatient (BNVA) | payer OTHER, SELFPAY | PROVIDERS: PCP Internal Medicine; Visit Provider Internal Medicine | DX: Z00.00 Encounter for general adult medical examination without abnormal findings (principal); R73.09 Other abnormal glucose; C44.622 Squamous cell carcinoma of skin of right upper limb, including shoulder; F43.0 Acute stress reaction; E27.8 Other specified disorders of adrenal gland; K21.9 Gastro-esophageal reflux disease without esophagitis; F32.A Depression, unspecified; F41.9 Anxiety disorder, unspecified; K58.9 Irritable bowel syndrome, unspecified; Z98.890 Other specified postprocedural states | CPT/HCPCS: 96127 ==

== ENCOUNTER 2025-04-08 09:30 | Outpatient (REF) | payer OTHER, SELFPAY ==
--- NOTE | ~2025-04-08 | XR_ITS ---
EXAMINATION: XR HAND, RIGHT CLINICAL INFORMATION: M79.641 - Pain in right hand COMPARISON: 03/24/2025, 10/21/2024. TECHNIQUE: PA, lateral, and oblique views of the right hand. FINDINGS: There is been amputation of the third digit at the DIP joint level. Mild irregularity and soft tissue swelling of the surgical stump without evidence of erosive changes of the distal middle phalanx. Otherwise, no fracture, dislocation, or suspicious bone lesion. Normal alignment. 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 Mild degenerative arthritis in the first through third MCP joints. No additional soft tissue abnormalities. XR/XR hand RT min 3V IMPRESSION: 1. Amputation of the third digit at the DIP joint level. Mild soft tissue irregularity and swelling of the distal stump without underlying bony abnormality. 2. 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 3. Mild degenerative arthritis at the first through third MCP joints. Electronically signed by: Antoine Castle MD 04/09/2025 09:47 AM EDT
== END 2025-04-08 09:31 | disposition home or self-care (01) ==
LOC: HO.HOSX 09:30
PROVIDERS: Visit Provider Orthopaedic Surgery
DX: M79.641 Pain in right hand (principal)
CPT/HCPCS: 73130

== ENCOUNTER 2025-04-08 14:57 | Outpatient (AMB) | payer OTHER, SELFPAY ==
--- OUTSIDE RECORDS SUMMARY | 2025-04-08 15:04 | XMS_ITS | Data Portability ---
Author Organization [place] - [facility], Allergy Address [address] [address] Care Team Providers Care Label Rewinder Name Role Phone PRAMOD BANERJEE Primary Care Provider [phone] Assessment Encounter Date Assessment Date Assessment LastModified [...] 0.1 % ear drops,suspe nsion 2024 025 [facility][id number], [address] [facility], [place], [address], 10:27:31 Patient TargetsNo targets recorded. Patient InstructionsNo [...] conductive and sensorineur al hearing loss, bilateral 507502032 Active 2024 Karen domingo [place] - [facility] 09:50:19 Postmastoid ectomy complicatio n 67443828 Active 2024 BRAYAN ARITA MD [address] [place] [address], [place], [address], [facility] - [facility] 5 10:26:00 Otorrhea of right ear 4773665557482 106 Active 2024 BRAYAN ARITA MD [address] [place] [address], [place], [address], [facility] - [facility] 10:26:56 Ossicles absent 934321284 Active 2024 BRAYAN ARITA MD [address] [place] [address], [phone], [facility] - [facility] 5 10:29:10 Marginal perforation of right tympanic membrane 7868437082472 109 Active 2024 BRAYAN ARITA MD [address] [place] [address], [phone], [facility] - [facility] 5 10:29:31 Problem Notes None recorded. Procedures Surgical History Date Name Laterality Status Provider Name and Address Organization Details Recorded Time Comp Audio with Tymps - 87469 & 92696 completed Karen Lund MA - [facility] 11/25/2024 09:50:10 Debridement of Mastoid Cavity bilat completed BRAYAN ARITA MD [address] [place] [address], [phone], [facility] - [facility] 11/25/2024 10:23:23 Imaging Results None recorded. Procedure Notes None recorded. Medical Equipment None Reported. Allergies Allergen ID Allergen Name Allergen Category Reaction Reaction Severity Criticality Documentation Date Start Date Code Code System Note Provider Name and Address Organization Details Recorded Time 250499 lidocaine medicatio n hives moderate Not available 11/25/2024 6387 RxNorm Maile domingo [facility] 5 09:55:44 302359 thimerosa l medicatio n hives severe Not available 11/25/2024 49887 RxNorm Maile domingo, [facility] 5 09:55:44 809128 cat dander environme nt other mild Not available 11/25/2024 65134 UNK Maile domingo [facility] 5 09:55:44 823923 mold extract environme nt headache moderate Not available 11/25/2024 58037 8 RxNorm Maile domingo, [facility] 5 09:55:44 Medications Name Sig Start [...] Details Last Updated DateTime 11/25/2024 167.64 cm 87445.7 g Maile Lyon [place] - [facility] 11/25/2024 09:55:36 Social History None recorded. Functional Status None recorded. Mental Status None recorded. Family History Relationship Description Onset Age of this Age Resolved Age Notes LastModified by Organization Details LastModified Time Mother Allergy [id number] Not availa ble 11/25/2024 09:55:48 Mother Disorder of thyroid gland [id number] Not available 09:55:48 Medical History Condition Response [...] SNOMED-CT Code Diagnosis ICD10 Code Diagnosis Note [id number] BRAYAN ARITA MD [facility] [address] [address] 11/25/2024 08:45:42 11/25/2024 10:36:01 Mixed conductive and sensorineural hearing loss, bilateral [id number] H90.6 Audiologic al evaluation results:Ri ght ear:Modera te sloping to severe mixed hearing loss with excellent word recognitio n.Left ear:Normal Normal through 2 kHz Mild M oderate Mo derately-s evere Camille re Profoun d Severe through 3kHz hearing he aring. slo ping to a mild slopi ng to a moderate s loping to moderately severe slo ping to severe slo ping to profound f lat high frequency low frequency mid frequency cookie bite adams curve rais ing to a mild mixed hearing loss with excellent word recognitio n. Tympanomet ry:Right Ear:Type B with large volumeLeft Ear:Type B with large volumeAudi ometric testing reviewed with the patient. She has a rather significan t degree of mixed hearing loss bilaterall y, but fortunatel y she has excellent speech discrimina tion. Her best option is to continue with convention al amplificat ion and have given her a copy of her audiogram and medical clearance to return to her audiologis t to continue with hearing aid suraj almanza. Postmastoi dectomy complication [id number] H95.193 Otorrhea of right ear 10 [id number] 739475 H92.11 Ossicles absent 05084703 9 H74.393 Marginal p erforation of right tympanic membrane [id number] 464807 H72.2X1 Health Concerns Section Related Observation LastModified by Organization Detai ls LastModified Time None Recorded Concern Status LastModified by Organization Details LastModified Time None Recorded Advance Directives Directive None Recorded Payers Insurance Date Sequence Insurance Name Policy Number Policy Rasmussen Covered Member ID Rasmussen Member ID Guarantor Name 11/25/[address] [facility] [employer] [place] [id number] Hetal Monk [id number] Hetal Monk Notes Date Note Type Note Provider Name and Address Organization Details Recorded Time 11/25/2024 text/html 59-year-old fema adrián with long otologic history. 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 She had multiple additional procedures up until she was in college. Most of her procedures were done down in [place]. She has bilateral canal wall down mastoidectomy cavities. Currently using binaural amplification dispensed through [employer] in [place]. She is doing well with this technology overall. She has occasional discharge from the right ear. BRAYAN ARITA MD [address] [place] [address], [place], [phone], [facility] - [facility] 11/25/2024 10:36:04 OBGyn Episode No OBEpisode recorded.
[2025-04-08 15:06] VITALS: BMI 29.0
--- NOTE | 2025-04-08 15:06 | MHC.OFFVIS ---
Vital Signs 04/08/25 15:06 Height 5 ft 6 in Weight 180 lb BMI 29.0 Intake Visit Reasons: PO RT MF DIP amp 03/25/25 AR Intake Note: Hetal 59 year old right hand dominant female presents to the office today for her post op visit for her right middle finger amp 03/25/[address] Guardado. States she is doing well, she has pain that comes and goes. She is here for removal of sutures. Allergies lidocaine Allergy (Intermediate, Verified 04/08/25 15:09) Itching HPI HPI PO RT MF DIP amp 03/25/25 AR: Details: Hetal is a 59 year old right hand dominant woman who returns S/P Right middle finger DIP joint partial amputation, for invasive squamous cell carcinoma. DOS: 03/25/25. She is also S/P right middle finger mass excision, down to bone, I&D, & partial removal of germinal matrix of nail bed, and overlying nail plate, DOS: 11/10/24. She says she is doing well, with some intermittent pain in her finger. *Please see scanned note & addendum from nursing department chairperson Dr. 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 Some sutures removed She can make a fist and extend all her digits Middle finger partial amputation through the DIP joint, with good soft tissue coverage. Sensation is intact Cap refill is brisk Pathology report from 03/25/25 Diagnosis Right middle finger distal phalanx, excision: - Portion of finger with skin and subcutaneous tissue with dermal scar; unremarkable bone. - No residual atypical squamoproliferative lesion seen. Radiographs: 3 views of the right hand were taken and viewed by me today in clinic. They show a right middle finger with a partial amputation through the DIP joint with adequate soft tissue coverage Microbiology report from 11/10/24 Routine Culture Final 11/12/24-1033 Organism 1 Strep agalactiae (Grp B) Quantity 3+ Susc N/A Susceptibility not routinely performed on this isolate. Result: 3+ Mixed skin daphne Pathology report from 11/10/24 Diagnosis A. Soft tissue, right middle finger mass, excision: Atypical squamoproliferation, extending to tissue edges. See comment. B. Soft tissue, right middle finger nail bed, excision: Focally squamous-lined fibrovascular and adipose tissue with focal granulation tissue formation; negative for malignancy. Comment (A): The findings in part A are most in keeping with a well-differentiated (verrucoid) squamous cell carcinoma. Close follow-up is recommended; consider re-excision if there is residual tumor, if the tumor recurs or if there are other concerns Psych Appearance: grossly normal Affect: normal affect Attitude: cooperative Assessment & Plan Assessment & Plan (1) Squamous cell carcinoma of skin of finger: Comment: R Code(s): C44.621 - Squamous cell carcinoma of skin of unspecified upper limb, including shoulder Category: Medical Qualifiers: Laterality: right Qualified Code(s): C44.622 - Squamous cell carcinoma of skin of right upper limb, including shoulder Plan Assessment & Plan: 1. 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 Right middle finger distal phalanx chronic paronychia, S/P I&D 3. Radial finger nail involvement, S/P partial removal of germinal matrix of nail bed, and overlying nail plate DOS: 11/10/24 The patient appears to be doing well post-operatively I educated her about the post-operative course I explained the signs and symptoms of infection, if the patient develops any new or worsening erythema, drainage, pain, or warmth they should contact the clinic or attend the ED. I discussed activity modifications, she is to lift nothing heavier than a cellphone for the next 2 weeks She will perform gentle ROM exercises at home She should avoid any underwater activities for the next 5 days She should gently massage about the incision site to reduce the risk of hypersensitivity She will follow up next week for a wound check & remaining suture removal. Anticipate referral to OT hand therapy & a further follow up 6-8 weeks after suture removal for a ROM check Per scanned note & addendum from nursing department chairperson Dr. Jaret Rodrigues, from 02/02/25, if she did have Squamous cell carcinoma (SCC) that was invasive into deep tissue and abutting bone, the primary risk is with delayed appreciation of recurrence that could result in increased risk for metastasis. It is important to obtain clear margins through a partial amputation of the middle finger. Scribed for Cris Guardado MD by Gomez Smith, medical support assistant, on 04/08/25 at 3:35 PM, EST. 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
== END 2025-04-08 16:18 | disposition home or self-care (01) ==
LOC: HO.HOS 14:58
PROVIDERS: PCP Internal Medicine; Visit Provider Orthopaedic Surgery
DX: C44.622 Squamous cell carcinoma of skin of right upper limb, including shoulder (principal)
CPT/HCPCS: 99024

== ENCOUNTER → 2025-04-08 14:59 | Outpatient (BNV) | payer OTHER, SELFPAY | PROVIDERS: Visit Provider Radiology Diagnostic Radiology | DX: S68.622A Partial traumatic transphalangeal amputation of right middle finger, initial encounter (principal); M18.11 Unilateral primary osteoarthritis of first carpometacarpal joint, right hand | CPT/HCPCS: 73130 ==

== ENCOUNTER 2025-04-17 08:11 | Outpatient (AMB) | payer OTHER, SELFPAY ==
--- NOTE | 2025-04-17 08:27 | MHC.OFFVIS ---
Vital Signs 04/17/25 08:33 Height 5 ft 6 in Weight 180 lb BMI 29.0 Intake Visit Reasons: PO RT MF DIP amp 03/25/25 AR-sutures removal Intake Note: Hetal is a 59 year old right hand dominant female who presents today for a post operative visit status post right middle finger DIP level amputation DOS: 03/25/[address] Cris Guardado. Allergies lidocaine Allergy (Intermediate, Verified 04/17/25 08:33) Itching HPI HPI PO RT MF DIP amp 03/25/25 AR-sutures removal: Details: Hetal is a 59 year old right hand dominant female who presents today for a post operative visit status post right middle finger DIP level amputation DOS: 03/25/[address] Cris Guardado. Today, the patient reports that her pain and range of motion have both improved significantly previous visit, in the redness observed at previous visit has also improved significantly. Patient does report that there is some hypersensitivity about the incision site, and that even light touch causes significant discomfort, primarily in the ulnar aspect of the incision site. Also reports numbness in the tip of the right middle finger. Denies any drainage from the incision site. No other acute complaints or concerns at this time. 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 Remaining sutures removed She can make a fist and extend all her digits Middle finger partial amputation through the DIP joint, with good soft tissue coverage. Sensation is intact Cap refill is brisk Pathology report from 03/25/25 Diagnosis Right middle finger distal phalanx, excision: - Portion of finger with skin and subcutaneous tissue with dermal scar; unremarkable bone. - No residual atypical squamoproliferative lesion seen. Microbiology report from 11/10/24 Routine Culture Final 11/12/24-1033 Organism 1 Strep agalactiae (Grp B) Quantity 3+ Susc N/A Susceptibility not routinely performed on this isolate. Result: 3+ Mixed skin daphne Pathology report from 11/10/24 Diagnosis A. Soft tissue, right middle finger mass, excision: Atypical squamoproliferation, extending to tissue edges. See comment. B. Soft tissue, right middle finger nail bed, excision: Focally squamous-lined fibrovascular and adipose tissue with focal granulation tissue formation; negative for malignancy. Comment (A): The findings in part A are most in keeping with a well-differentiated (verrucoid) squamous cell carcinoma. 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
[2025-04-17 08:33] VITALS: BMI 29.0
== END 2025-04-17 09:05 | disposition home or self-care (01) ==
LOC: HO.HOS 08:11
PROVIDERS: PCP Internal Medicine
DX: C44.622 Squamous cell carcinoma of skin of right upper limb, including shoulder (principal); Z89.021 Acquired absence of right finger(s)
CPT/HCPCS: 99024

== ENCOUNTER → 2025-04-17 08:11 | Outpatient (BNVA) | payer OTHER, SELFPAY | PROVIDERS: PCP Internal Medicine ==

== ENCOUNTER 2025-05-07 13:21 | Outpatient (AMB) | payer OTHER, SELFPAY ==
--- OUTSIDE RECORDS SUMMARY | 2025-05-07 13:30 | XMS_ITS | Encounter Summary ---
Author Organization Formerly [facility] Address [address] [place] [address] Care Team Providers Care Branch Rental Manager Name Role Phone Gladis Haney MD Primary Care Provider Pcp, No Primary Care Provider Unavailabl e Encounter Details Date Type Department Care Team (Late st Contact Info) Description 01/08/2017 Scanned Document [facility] [address] [facility] [address] [place] [address] Provider, Generic Social History Tobacco [...] on filedocumented in this encounter Care Teams Branch Rental Manager Relationship Specialty Start Date End Date Gladis Haney MD [address] [facility] [address] [place] [address] PCP - General Internal Medicine 08/06/15 01/22/23 Pcp, No PCP - General General Medicine 01/23/23 documented as of this encounter
--- OUTSIDE RECORDS SUMMARY | 2025-05-07 13:30 | XMS_ITS | Clinical Summary ---
Author Organization Patient Business Ser [facility] Address [address] [place] [address] Care Team Providers Care Antenna Installer Name Role Phone Jacqueline Pereira MD Primary Care Provider [phone] Allergies Active Allergy Reactions Criticality Noted Date Comments Adhesive Tape-Silicones 10/10/2021 Lidocaine Rash Low 09/07/2017 Lidocaine Hcl 11/07/2017 Thimerosal Rash Low 10/14/2021 Medications amphetamine-dextr oamphetamine (ADDERALL) 10 mg tablet TAKE 1 TABLET BY MOUTH 2 TIMES A DAY 2 Active cetirizine (ZyrTEC) 10 mg capsule Zyrtec 10 mg capsule Active fluticasone propionate (FLONASE) 50 mcg/actuation nasal spray spray/apply 1 spray in each nostril daily. Active omeprazole OTC (PriLOSEC OTC) 20 mg EC tablet Prilosec OTC 20 mg tablet,delaye d release TAKE 1 TABLET BY ORAL ROUTE PRN 5 Active calcium carbonate-vitamin D3 500 mg-15 mcg (600 unit) tablet Take 600 mg by mouth 2 times daily (with meals). Active multivit-min/iron /folic acid/K (ADULTS MULTIVITAMIN ORAL) TAKE 1 CAPSULE BY ORAL ROUTE EVERY DAY 5 Active LORazepam (ATIVAN) 0.5 mg tablet 4 Active FLUoxetine (PROzac) 20 mg tablet TAKE 1/2 TAB ORAL DAILY FOR 2 WEEKS THEN INCREASE TO 1 TAB ORAL DAILY 4 Active venlafaxine XR (EFFEXOR-XR) 75 mg 24 hr capsule Take 1 capsule (75 mg total) by mouth 1 (one) time each day. Do not crush or chew. 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, estrogen receptor positive ([facility]/HCC V24, CMS/HCC V28) 12/27/2023 Left adrenal mass ([facility] V24) 08/22/2022 Hx of appendectomy 08/21/2022 Encounters Date Type Department Care Team Description 03/18/2025 3:45 PM EDT Office Visit [facility] Hematology Oncology [address] [place] [phone] Sulaiman Olivarez MD Malignant neoplasm of upper-outer quadrant of right breast in female, estrogen receptor positive ([facility]/HCC V24, CMS/HCC V28) (Primary Dx); Reactive depression; Squamous cell [...] HISTORICAL MASTOIDECTOMY BREAST SURGERY 2020 Right PROCEDURE: CA UNLISTED PROCEDURE BREAST; COMMENT: ca BREAST BIOPSY [...] of iritis Migraine 11/07/2017 DX:Migraine Breast cancer ([facility]/HCC V24, CMS/HCC V28) 2020 DX:Breast cancer ([facility]) Family History Medical History Relation Name Comments [...] your loved ones. For example, child care education coordinator or elderly care for an older adult? [...] Orientation Straight 10/21/2021 4: 14 PM EST Travel History Travel Start Travel End [place] 04/25/2025 04/30/2025 Obstetrics History Para Term AB IAB SAB [...] 76 03/18/2025 3:50 PM EDT Temperature 36.2 C (97.2 F) 03/18/2025 3:50 PM EDT Respiratory Rate - - Oxygen Saturation 97% 03/18/2025 3:50 PM EDT Inhaled Oxygen Concentration - - Weight 82.1 kg (181 lb) 03/18/2025 3:50 PM EDT Height 167.6 cm (5' 6 ) 03/18/2025 3:50 PM EDT Body Mass Index 29.21 03/18/2025 3:50 PM EDT Plan of Treatment Upcoming Encounters Date Type Department Care Team (Late st Contact Info) Description 05/12/2025 1:00 PM EDT [facility] [address] [place] [phone] Charline Huggins MD [address] [place] [address] 08/18/2025 4:30 PM EDT Appointment Radiology Department [address] [phone] 10/07/2025 3:45 PM EST Office Visit [facility] Hematology Oncology [address] [place] [phone] Sulaiman Olivarez MD [address] [place] [address] Health Maintenance Due Date Last Done Comments [...] 2025 08/29/2024, 09/22/2022, 11/20/2021, Additional history exists Influenza Vaccine (#1) 2025 , 10/17/2023, 09/22/2022, Additional history exists Social Influencers of Health Screening 09/07/2025 09/07/2024 Breast Cancer Screening 08/05/2026 08/05/20 24, 08/05/2024, 08/01/2023, Additional history exists DTaP,Tdap,and Td Vaccines (3 - Td or Tdap) 09/07/2027 09/07/2017, 09/11/2011 Cervical Cancer Screening: HPV 10/02/2028 10/02/2023 Colorectal Cancer Screening: Colonoscopy 10/19/2031 10/19/2021 RSV Immunization Adult Patients (1 - 1-dose 75+ series) 2040 Hepatitis C Screening Completed 09/07/2017 HIB Vaccines Aged Out No longer eligi [...] screening mammogram for malignant neoplasm of breast HM HPV Routine 10/02/2023 COLONOSCOPY Routine 10/19/2021 HEPATITIS [...] breast tissue is heterogeneously dense, limiting sensitivity. There are stable postlumpectomy/radiation changes in the right upper outer breast. No suspicious mass, architectural distortion or suspicious calcifications are identified. IMPRESSION: : Dense breast tissue, limiting the sensitivity of mammography. No mammographic evidence of malignancy. BIRADS 1-Negative; N. Breast density: The breasts are heterogeneously dense, which may obscure small masses. 5 year breast cancer risk assessment N/A Lifetime breast cancer risk assessment N/A Breast cancer risk category Low (<15%) Location: [facility], [address] [place] [address], [address], [phone] Procedure Note Irma Sr MD - 09/02/2024 [...] Breast cancer risk category Low (<15%) Location: [facility], [address] [place] [address], [phone], [phone] Sonia Torres MD IMG XR PROCEDURES Final Result * Cervical Cancer Screening: HPV (10/02/2023) Pathologist [facility] Cervical Cancer Screening: HPV negative, abstracted Historical Provider HEALTH MAINTENANCE Final Result * Colonoscopy (10/19/2021) Pathologist [facility] Colonoscopy no interpretation , abstracted Anatomical Region Laterality Modality Other Historical Provider HEALTH MAINTENANCE Final Result * Hepatitis C Screening (09/07/2017) Pathologist [facility] Hepatitis C Screening abstracted Historical Provider HEALTH MAINTENANCE Final Result from Last 3 Months or Most Recently Relevant to Health Maintenance Insurance [facility] Care Teams Antenna Installer Relationship Specialty Start Date End Date Jacqueline Pereira MD [address] [place] [id number] PCP - General Internal Medicine 08/15/22
--- OUTSIDE RECORDS SUMMARY | 2025-05-07 13:30 | XMS_ITS | Clinical Summary ---
Author Organization [facility] Address [address] [place] [address] Care Team Providers Care Furnace Builder Name Role Phone Jacqueline Pereira MD Primary Care Provider [phone] Allergies Active Allergy Reactions Criticality Noted Date [...] 97 03/17/2024 3:57 PM EDT Temperature 36.7 C (98.1 F) 03/17/2024 3:57 PM EDT Respiratory Rate - - Oxygen [...] season) 2024 09/22/2022, 05/18/2021, 04/28/2021 Influenza Vaccine (Season Ended) 2025 10/17/2023, 09/22/2022, 11/20/2021, Additional history exists DTap / Tdap / Td (3 - Td or Tdap) 09/07/2027 09/07/2017, 09/11/2011 RSV Ped < 20 months Aged Out No longe r eligible based on patient's age to complete this topic Care Teams Furnace Builder Relationship Specialty Start Date End Date Jacqueline Pereira MD PCP - General Internal Medicine 04/24/22
[2025-05-07 13:38] VITALS: BMI 29.0
--- NOTE | 2025-05-07 13:38 | MHC.OFFVIS ---
Vital Signs 05/07/25 13:38 Height 5 ft 6 in Weight 180 lb BMI 29.0 Intake Visit Reasons: PO RT MF DIP amp 03/25/25 AR-follow up Intake Note: Hetal is a 59 year old right hand dominant female who presents today for a post operative visit status post right middle finger DIP level amputation DOS: 03/25/[address] Cris Guardado. At his last visit for hypersensitivity, patient was offered a referral to occupational therapy, but declined. States she continues to work on her ROM and is doing well. She has concerns due to swelling on and off. Allergies lidocaine Allergy (Intermediate, Verified 05/07/25 13:39) Itching HPI HPI PO RT MF DIP amp 03/25/25 AR-follow up: Details: Hetal is a 59 year old right hand dominant female who presents today for a post operative visit status post right middle finger DIP level amputation DOS: 03/25/[address] Cris Guardado. At his last visit for hypersensitivity, patient was offered a referral to occupational therapy, but declined. States she continues to work on her ROM and is doing well. She has concerns due to swelling on and off, well overall reports that she is doing very well. 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 Remaining sutures removed at previous visit She can make a fist and extend all her digits Middle finger partial amputation through the DIP joint, with good soft tissue coverage. Sensation is intact Cap refill is brisk Pathology report from 03/25/25 Diagnosis Right middle finger distal phalanx, excision: - Portion of finger with skin and subcutaneous tissue with dermal scar; unremarkable bone. - No residual atypical squamoproliferative lesion seen. Microbiology report from 11/10/24 Routine Culture Final 11/12/24-1033 Organism 1 Strep agalactiae (Grp B) Quantity 3+ Susc N/A Susceptibility not routinely performed on this isolate. Result: 3+ Mixed skin daphne Pathology report from 11/10/24 Diagnosis A. Soft tissue, right middle finger mass, excision: Atypical squamoproliferation, extending to tissue edges. See comment. B. Soft tissue, right middle finger nail bed, excision: Focally squamous-lined fibrovascular and adipose tissue with focal granulation tissue formation; negative for malignancy. Comment (A): The findings in part A are most in keeping with a well-differentiated (verrucoid) squamous cell carcinoma. 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
== END 2025-05-07 13:52 | disposition home or self-care (01) ==
LOC: HO.HOS 13:22
PROVIDERS: PCP Internal Medicine
DX: C44.622 Squamous cell carcinoma of skin of right upper limb, including shoulder (principal); Z89.021 Acquired absence of right finger(s)
CPT/HCPCS: 99024